=== PATIENT | female | born 1945 | race Caucasian/White ===

== ENCOUNTER 2022-08-09 10:21 | Outpatient (CLI) | payer OTHER, SELFPAY ==
[2022-08-09 17:35] LABS: Basophils Absolute Auto 0.1 K/mm3 (0.0-0.1); Basophils Percent Auto 1.1 % (0.2-1.2); Eosinophils Absolute Auto 0.3 K/mm3 (0-0.3); Eosinophils Percent Auto 5.5 % (0-4.4); Hematocrit 39.4 % (37.0-47.0); Hemoglobin 13.5 g/dL (12.0-15.0); Immature Granulocyte Absolute 0.02 K/mm3 (0.00-0.031); Immature Granulocyte Percent A 0.3 % (0-0.5); Lymphocytes Absolute Auto 1.32 K/mm3 (0.9-3.2); Lymphocytes Percent Auto 21.4 % (18.3-44.2); Mean Corpuscular HGB Conc 34.3 g/dl (32-36); Mean Corpuscular Volume 81.7 fl (80-100); Mean Platelet Volume 10.1 fl (7.4-10.4); Monocytes Absolute Auto 0.5 K/mm3 (0.1-0.6); Monocytes Percent Auto 7.3 % (2.6-8.5); Neutrophils Percent Auto 64.4 % (45.5-73.1); Platelet Count Result 123 k/mm3 (150-375); Red Blood Count 4.82 M/mm3 (4.2-5.4); Red Cell Distribution Width 14.6 % (11.5-14.5); White Blood Count 6.2 K/mm3 (4.5-10.0)
[2022-08-09 18:55] LABS: Alanine Aminotransferase 19 U/L (6-35); Albumin Level 4.4 g/dL (3.5-5.1); Alkaline Phosphatase 142 U/L (38-126); Anion Gap 8 mmol/L (8-16); Aspartate Amino Transferase 25 U/L (14-36); Bilirubin,Total 0.9 mg/dL (0.2-1.3); Blood Urea Nitrogen 21 mg/dL (7-17); Calcium 9.1 mg/dL (8.4-10.2); Carbon Dioxide 25 mmol/L (22-30); Chloride 109 mmol/L (98-107); Cholesterol 199 mg/dL (0-200); Estimated Glomerular Filt Rate 37; Glucose 85 mg/dL (65-110); HDL Direct 41 mg/dL; Potassium 4.6 mmol/L (3.4-5.0); Sodium 142 mmol/L (137-145); Triglycerides 196 mg/dL (<150)
[2022-08-09 19:08] LABS: LDL Cholesterol Direct 99 mg/dL
[2022-08-09 21:23] LABS: Hemoglobin A1C 5.6 % (<5.7)
== END 2022-08-09 10:22 | disposition home or self-care (01) ==
LOC: ANHGOSHLAB 10:23
PROVIDERS: PCP Family Medicine; Visit Provider Family Medicine
DX: E78.49 Other hyperlipidemia (principal); G58.9 Mononeuropathy, unspecified
CPT/HCPCS: 36415; 80053; 80061; 82607; 83036; 84443; 85025

== ENCOUNTER 2023-01-25 13:10 | Outpatient (CLI) | payer OTHER, SELFPAY ==
[2023-01-25 18:43] LABS: Anion Gap 11 mmol/L (8-16); Blood Urea Nitrogen 28 mg/dL (7-17); Carbon Dioxide 25 mmol/L (22-30); Chloride 104 mmol/L (98-107); Estimated Glomerular Filt Rate 29; Glucose 79 mg/dL (65-110); Potassium 4.9 mmol/L (3.4-5.0); Sodium 140 mmol/L (137-145)
== END 2023-01-25 13:11 | disposition home or self-care (01) ==
LOC: ANHGOSHLAB 13:11
PROVIDERS: PCP Family Medicine; Visit Provider Nurse Practitioner Family
DX: N18.30 Chronic kidney disease, stage 3 unspecified (principal)
CPT/HCPCS: 36415; 80048

== ENCOUNTER 2023-02-02 14:44 | Outpatient (CLI) | payer OTHER, SELFPAY ==
--- NOTE | ~2023-02-02 | US_ITS ---
EXAMINATION: US renal BI DATE: 02/02/2023 15:23 INDICATION: Stage III chronic kidney disease TECHNIQUE: Multiple ultrasound grayscale images of the kidneys were obtained. COMPARISON: None. FINDINGS: The right kidney measures 8.2 x 3.0 x 2.5 cm. The left kidney measures 10.2 x 3.7 x 3.1 cm. The kidne ys demonstrate normal echogenicity. There is increased echogenicity of the liver with poor acoustic p enetration consistent with diffuse hepatic steatosis. There is no hydronephrosis in either kidney. N o stones identified. The bladder is partially decompressed which limits evaluation. Instantly noted i s thickening hyperechoic endometrial complex measures approximately 12 mm . IMPRESSION: 1. Normal kidneys without hydronephrosis. 2. Diffuse hepatic steatosis. 3. Incidentally noted is thickened appearing endometrial complex measuring 12 mm . Correlate for abno rmal uterine bleeding would consider either dedicated pelvic ultrasound or hysteroscopy for further e valuation. Reviewed, dictated and finalized at location B. IMPRESSION: 1. Normal kidneys without hydronephrosis. 2. Diffuse hepatic steatosis. 3. Incidentally noted is thickened appearing endometrial complex measuring 12 m m . Correlate for abnormal uterine bleeding would consider either dedicated pel bang ultrasound or hysteroscopy for further evaluation.
== END 2023-02-02 14:45 | disposition home or self-care (01) ==
PROVIDERS: PCP Family Medicine; Visit Provider Family Medicine
DX: N18.30 Chronic kidney disease, stage 3 unspecified (principal); K76.0 Fatty (change of) liver, not elsewhere classified
CPT/HCPCS: 76775

== ENCOUNTER 2023-02-07 14:57 | Outpatient (CLI) | payer OTHER, SELFPAY ==
--- NOTE | ~2023-02-07 | XR_ITS ---
EXAMINATION: XR lumbar spine min 4V DATE: 02/07/2023 15:13 INDICATION: Low back pain TECHNIQUE: Anteroposterior, lateral, and bilateral oblique views of the lumbar spine, and cone-down l ateral view of the lumbosacral junction were obtained. COMPARISON: None. FINDINGS: There is severe loss of intervertebral disc space height at L3-4, L4-5, and L5-S1. There ar e 8 mm of anterolisthesis of L4 on L5. There is an age-indeterminate superior endplate compression fr acture of L2 with approximately 25% loss of vertebral body height. There is severe facet joint osteoa rthritis of the lower lumbar spine. Calcified atherosclerosis is noted. IMPRESSION: 1. Age-indeterminate L2 compression fracture. 2. Severe lumbar spondylosis. Reviewed, dictated and finalized at location B.
== END 2023-02-07 14:58 ==
PROVIDERS: PCP Family Medicine; Visit Provider Family Medicine
DX: M47.896 Other spondylosis, lumbar region (principal); S32.020A Wedge compression fracture of second lumbar vertebra, initial encounter for closed fracture; X58.XXXA Exposure to other specified factors, initial encounter
CPT/HCPCS: 72110

== ENCOUNTER 2023-03-08 15:11 | Outpatient (CLI) | payer OTHER, SELFPAY ==
[2023-03-08 19:02] LABS: Anion Gap 9 mmol/L (8-16); Blood Urea Nitrogen 23 mg/dL (7-17); Calcium 9.2 mg/dL (8.4-10.2); Carbon Dioxide 26 mmol/L (22-30); Chloride 105 mmol/L (98-107); Estimated Glomerular Filt Rate 31; Glucose 111 mg/dL (65-110); Potassium 4.3 mmol/L (3.4-5.0); Sodium 140 mmol/L (137-145)
== END 2023-03-08 15:12 | disposition home or self-care (01) ==
LOC: ANHGOSHLAB 15:13
PROVIDERS: PCP Family Medicine; Visit Provider Family Medicine
DX: N18.30 Chronic kidney disease, stage 3 unspecified (principal)
CPT/HCPCS: 36415; 80048

== ENCOUNTER 2023-06-07 14:21 | Outpatient (CLI) | payer OTHER, SELFPAY ==
[2023-06-07 19:59] LABS: Alanine Aminotransferase 23 U/L (6-35); Albumin Level 4.4 g/dL (3.5-5.1); Alkaline Phosphatase 133 U/L (38-126); Anion Gap 9 mmol/L (8-16); Aspartate Amino Transferase 25 U/L (14-36); Blood Urea Nitrogen 19 mg/dL (7-17); Carbon Dioxide 24 mmol/L (22-30); Chloride 106 mmol/L (98-107); Cholesterol 189 mg/dL (0-200); Estimated Glomerular Filt Rate 31; Glucose 98 mg/dL (65-110); HDL Direct 45 mg/dL; Potassium 3.9 mmol/L (3.4-5.0); Sodium 139 mmol/L (137-145); Triglycerides 208 mg/dL (<150)
[2023-06-07 20:18] LABS: LDL Cholesterol Direct 103 mg/dL
[2023-06-07 20:42] LABS: Basophils Absolute Auto 0.1 K/mm3 (0.0-0.1); Basophils Percent Auto 0.7 % (0.2-1.2); Eosinophils Absolute Auto 0.3 K/mm3 (0-0.3); Eosinophils Percent Auto 3.9 % (0-4.4); Hematocrit 38.8 % (37.0-47.0); Hemoglobin 13.1 g/dL (12.0-15.0); Immature Granulocyte Absolute 0.02 K/mm3 (0.00-0.031); Immature Granulocyte Percent A 0.2 % (0-0.5); Lymphocytes Absolute Auto 1.59 K/mm3 (0.9-3.2); Lymphocytes Percent Auto 19.2 % (18.3-44.2); Mean Corpuscular HGB Conc 33.8 g/dl (32-36); Mean Corpuscular Hemoglobin 28.1 pg (26-34); Mean Corpuscular Volume 83.3 fl (80-100); Mean Platelet Volume 10.4 fl (7.4-10.4); Monocytes Absolute Auto 0.6 K/mm3 (0.1-0.6); Monocytes Percent Auto 7.5 % (2.6-8.5); Neutrophils Absolute Auto 5.7 K/mm3 (1.3-6.7); Neutrophils Percent Auto 68.5 % (45.5-73.1); Platelet Count Result 185 k/mm3 (150-375); Red Blood Count 4.66 M/mm3 (4.2-5.4); Red Cell Distribution Width 13.7 % (11.5-14.5); White Blood Count 8.3 K/mm3 (4.5-10.0)
[2023-06-07 21:05] LABS: Hepatitis C Virus Antibody Negative (Negative)
== END 2023-06-07 14:22 | disposition home or self-care (01) ==
PROVIDERS: PCP Family Medicine; Visit Provider Nurse Practitioner Family
DX: E78.2 Mixed hyperlipidemia (principal); I12.9 Hypertensive chronic kidney disease with stage 1 through stage 4 chronic kidney disease, or unspecified chronic kidney disease; N18.30 Chronic kidney disease, stage 3 unspecified; G58.9 Mononeuropathy, unspecified; R73.01 Impaired fasting glucose
CPT/HCPCS: 36415; 80053; 80061; 84443; 85025; 86803

== ENCOUNTER 2023-10-05 13:59 | Outpatient (CLI) | payer OTHER, SELFPAY ==
[2023-10-05 21:03] LABS: Anion Gap 8 mmol/L (8-16); Blood Urea Nitrogen 18 mg/dL (7-17); Carbon Dioxide 24 mmol/L (22-30); Chloride 109 mmol/L (98-107); Estimated Glomerular Filt Rate 40; Glucose 117 mg/dL (65-110); Sodium 141 mmol/L (137-145)
[2023-10-05 21:07] LABS: Potassium 3.9 mmol/L (3.4-5.0)
[2023-10-05 21:20] LABS: Hemoglobin A1C 5.1 % (<5.7)
== END 2023-10-05 14:00 | disposition home or self-care (01) ==
LOC: ANHGOSHLAB 14:00
PROVIDERS: PCP Family Medicine; Visit Provider Nurse Practitioner Family
DX: R73.01 Impaired fasting glucose (principal); I10 Essential (primary) hypertension
CPT/HCPCS: 36415; 80048; 83036

== ENCOUNTER 2024-05-16 15:29 | Outpatient (CLI) | payer OTHER, SELFPAY ==
[2024-05-16 17:38] LABS: Alanine Aminotransferase 19 U/L (6-35); Albumin Level 4.5 g/dL (3.5-5.1); Alkaline Phosphatase 128 U/L (38-126); Anion Gap 10 mmol/L (4-12); Aspartate Amino Transferase 44 U/L (14-36); Bilirubin,Total 1.1 mg/dL (0.2-1.3); Blood Urea Nitrogen 24 mg/dL (7-17); Calcium 9.1 mg/dL (8.4-10.2); Carbon Dioxide 24 mmol/L (22-30); Chloride 106 mmol/L (98-107); Estimated Glomerular Filt Rate 34; Glucose 109 mg/dL (65-110); Sodium 140 mmol/L (137-145)
== END 2024-05-16 15:30 | disposition home or self-care (01) ==
LOC: ANHGOSHLAB 15:30
PROVIDERS: PCP Family Medicine; Visit Provider Nurse Practitioner Family
DX: I12.9 Hypertensive chronic kidney disease with stage 1 through stage 4 chronic kidney disease, or unspecified chronic kidney disease (principal); N18.30 Chronic kidney disease, stage 3 unspecified; R30.0 Dysuria
CPT/HCPCS: 36415; 80053; 84443; 87086

== ENCOUNTER 2024-05-17 13:40 | Outpatient (CLI) | payer OTHER, SELFPAY ==
[2024-05-17 18:56] LABS: Basophils Absolute Auto 0.1 K/mm3 (0.0-0.1); Basophils Percent Auto 1.1 % (0.2-1.2); Eosinophils Absolute Auto 0.4 K/mm3 (0-0.3); Eosinophils Percent Auto 4.9 % (0-4.4); Hematocrit 38.2 % (37.0-47.0); Immature Granulocyte Absolute 0.02 K/mm3 (0.00-0.031); Immature Granulocyte Percent A 0.3 % (0-0.5); Lymphocytes Absolute Auto 1.95 K/mm3 (0.9-3.2); Mean Corpuscular Hemoglobin 27.9 pg (26-34); Mean Platelet Volume 10.6 fl (7.4-10.4); Monocytes Absolute Auto 0.6 K/mm3 (0.1-0.6); Monocytes Percent Auto 7.6 % (2.6-8.5); Neutrophils Absolute Auto 4.5 K/mm3 (1.3-6.7); Neutrophils Percent Auto 60.1 % (45.5-73.1); Platelet Count Result 123 k/mm3 (150-375); Red Blood Count 4.66 M/mm3 (4.2-5.4); Red Cell Distribution Width 13.7 % (11.5-14.5); White Blood Count 7.5 K/mm3 (4.5-10.0)
== END 2024-05-17 13:41 | disposition home or self-care (01) ==
LOC: ANHGOSHLAB 13:42
PROVIDERS: PCP Family Medicine; Visit Provider Nurse Practitioner Family
DX: I12.9 Hypertensive chronic kidney disease with stage 1 through stage 4 chronic kidney disease, or unspecified chronic kidney disease (principal); N18.30 Chronic kidney disease, stage 3 unspecified; M79.669 Pain in unspecified lower leg
CPT/HCPCS: 36415; 85025

== ENCOUNTER 2025-03-06 14:23 | Outpatient (CLI) | payer OTHER, SELFPAY ==
--- OUTSIDE RECORDS SUMMARY | 2025-03-06 14:31 | XMS_ITS | Clinical Summary ---
Author Organization [facility] Address [address] [place] [id number] Care Team Providers Care Appraisal Specialist Name Role Phone Nelson BrewerHarry RESENDIZ Primary Care Provider [phone] Allergies No known active allergies Active Problems Problem Noted Date Diagnosed Date Benign hypertension 12/15/2013 Overview (11/03/2016): BENIGN HYPERTENSION Generalized osteoarthritis 12/15/2013 Overview (11/05/2016): GENERAL OSTEOARTHROSIS Surgical History Surgery Date Site/Laterality Comments OTHER SURGICAL HISTORY eye surgery b/l Medical History Medical History Date Comments Neuropathy Hypertension Family History Medical History Relation Name Comments Cirrhosis Mother 2 Cirrhosis; Caus e of : Cirrhosis Relation Name Status Comments Mother 1 Mother 2 Social History Tobacco Use Types Packs/Day Years Used Date Smoking Tobacco: Never Assessed Alcohol Use Standard Drinks/Week Comments No 0 (1 standard drink = 0.6 oz pur e alcohol) Comments Unknown Sex and Gender Information Value Date Recorded Sex Assigned at Not on file 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 Gender Identity Not on file Sexual Orientation Not on file Obstetrics History Last Filed Vital Signs Vital Sign Reading Time Taken Comments Blood Pressure 159/89 02/28/2022 1:40 AM CDT Pulse 60 02/28/2022 1:40 AM CDT Temperature 36.8 C (98.2 F) 02/27/2022 5:22 PM CDT Respiratory Rate 18 02/27/2022 5:22 PM CDT Oxygen Saturation 98% 02/28/2022 1:40 AM CDT Inhaled Oxygen Concentration - - Weight 87.5 kg (193 lb) 02/27/2022 5:22 PM CDT Height 170.2 cm (5' 7) 02/27/2022 5:22 PM CDT Body Mass Index 30.23 02/27/2022 5:22 PM CDT Plan of Treatment Not on file Insurance HEALTHCARE MEDICARE HEALTHCARE Care Teams Appraisal Specialist Relationship Specialty Start Date End Date Nelson Brewre, [address] [facility] [address] [place] [address] PCP - General 03/08/22
[2025-03-06 18:19] LABS: Alanine Aminotransferase 17 U/L (6-35); Albumin Level 4.1 g/dL (3.5-5.1); Alkaline Phosphatase 148 U/L (38-126); Anion Gap 8 mmol/L (4-12); Aspartate Amino Transferase 27 U/L (14-36); Bilirubin,Total 0.8 mg/dL (0.2-1.3); Blood Urea Nitrogen 26 mg/dL (7-17); Calcium 9.1 mg/dL (8.4-10.2); Carbon Dioxide 23 mmol/L (22-30); Chloride 109 mmol/L (98-107); Estimated Glomerular Filt Rate 35; Glucose 98 mg/dL (65-110); Potassium 4.8 mmol/L (3.4-5.0); Sodium 140 mmol/L (137-145); Total Protein 7.4 g/dL (6.3-8.2)
[2025-03-06 18:51] LABS: Thyroid Stimulating Hormone 1.230 uIU/mL (0.465-4.680)
[2025-03-06 19:11] LABS: Hemoglobin A1C 5.8 % (<5.7)
== END 2025-03-06 14:24 | disposition home or self-care (01) ==
LOC: ANHGOSHLAB 14:24
PROVIDERS: PCP Family Medicine; Visit Provider Nurse Practitioner Family
DX: I12.9 Hypertensive chronic kidney disease with stage 1 through stage 4 chronic kidney disease, or unspecified chronic kidney disease (principal); N18.30 Chronic kidney disease, stage 3 unspecified; R73.01 Impaired fasting glucose
CPT/HCPCS: 36415; 80053; 83036; 84443

== ENCOUNTER 2025-05-15 18:46 | Inpatient (IN) | payer OTHER, SELFPAY ==
--- OUTSIDE RECORDS SUMMARY | 2009-09-22 10:00 | XMS_ITS | Continuity of Care Document ---
Author Organization [facility] Address [address] [place] [address] [place] [address] Phone Care Team Providers Care Director Occupational Name Role Phone Bao [place] Unavailable Unavailable Procedures Procedure Date Office/outpatient Visit, Est Eye Exam & Treatment Office/outpatient Visit, Est Eye Exam & Treatment Refraction Advance Directives Directive Yes / No Effective Date File Name No Information Encounters Encounter Description Practice Location Reason(s) For Visit Diagnoses Date Provider Providers Copied on Encounter Office/outpat ient Visit, Est [facility], [address] [place] [address] [address], [place], [place], [id number], tel:[phone] [facility] No Information 2-201 0 Lizett Gore. [address] , [address], [place], [place], [facility] [place], . tel:[phone] [facility], [address] [place] [address] [address], [place], [place], [id number], [place] tel:[phone] [facility] No Information 2-200 9 Lizett Gore. [address] , [address], [place], [place], [facility] [place], [place]. tel:[phone] Office/outpat ient Visit, [facility], [address] [place] [address] [address], [place], [place], [id number], tel:[phone] [facility] No Information Sep-0 3200 8 Lizett Gore. [address] , [address], [place], [address], [place]. tel:[phone] [facility], [address], [place], [place], [id number], [place] tel:[phone] [facility] No Information 200 7 Lizett Gore. [address] , [address], [place], [address], [place]. tel:[phone] Family History Family Member Type Diagnosis Age At Onset No Information Payers Payer name Insurance type Covered libertarian ID Authoriza tion(s) No Information Social History Type Description Quantity Date Captured Comments Sex Female Smoking Status No Information Chief Complaint And Reason For Visit No Information Reason For Referral Reason For Referral No Information History Of Present Illness Encounter Date Complaint History Of Prese nt Illness No Information Functional Status Date Functional Assessmen t No Information Instructions Date Instruction Additional Infor mation No Information Assessments Type Assessment Date No Information Patient Care Teams Name Effective Dates (start - stop) Status Members No Information
--- OUTSIDE RECORDS SUMMARY | 2023-08-14 06:41 | XMS_ITS | Continuity of Care Document ---
Author Organization [facility] Address [address] [place] [address] Phone Care Team Providers Care Cell Manager Name Role Phone Daniella RESENDIZ, Nelson Unavailable Unavailable Allergies, Adverse Reactions, Alerts Substance Reaction Status Criticality Sulfa (Sulfonamide Antibiotics) Nausea Active No Information Medications Medication Instructions Dosage Effective Dates (start - stop) Status Comments ATORVASTATIN 20 MG TABLET TAKE 1 TABLET BY MOUTH EVERY DAY - Active OMEPRAZOLE DR 20 MG CAPSULE TAKE 1 CAPSULE BY ORAL ROUTE EVERY DAY 30 MINUTES TO 1 HOUR BEFORE A MEAL IN THE MORNING - Active AMLODIPINE BESYLATE 5 MG TAB TAKE 1 TABLET BY MOUTH EVERY DAY - Active ATENOLOL 100 MG TABLET TAKE 1 TABLET BY MOUTH EVERY DAY - Active alprazolam 0.5 mg tablet take 1 tablet by oral route at bedtime as needed for insomnia - Active GABAPENTIN 400 MG CAPSULE TAKE 2 CAPSULES BY MOUTH 3 TIMES A DAY - Active loratadine 10 mg tablet TAKE 1 TABLET BY MOUTH EVERY DAY NEEDED FOR ALLERGIES - Active Pepcid Complete 10 mg-800 mg-165 mg chewable tablet take 1 tablet by mouth at bedtime - Active Glucosamine-Chondroiti n Complex capsule take two capsules by oral route once daily - Active multivitamin capsule take one capsule by oral route once daily - Active Procedures Procedure Date TELEPHONE E&M SERVICE BY A PHYSICIAN;5-1 0 MINUTES OF MEDICAL DISCUSSION CBC, INC PLATELETS AND DIFFERENTIAL COMPREHEN METABOLIC PANEL CMP LIPID PANEL ROUTINE VENIPUNCTURE Pt inelig neg scrn depres FALL RISK ASSESSMENT DOC'D PRES/ABSN URINE INCON ASSESS URINALYSIS, DIPSTICK (UA) - Office Lab J LDL-CHOLESTEROL, DIRECT OFFICE [id number] BODY MASS INDEX DOCD SYST BP GE 130 - 139MM HG DIAST BP 80-89 MM HG Pt inelig neg scrn depres URINALYSIS, DIPSTICK (UA) - Office Lab M OFFICE [id number] BODY MASS INDEX DOCD SYST BP GE 130 - 139MM HG DIAST BP 80-89 MM HG FALL RISK ASSESSMENT DOC'D PRES/ABSN URINE INCON ASSESS Pt inelig neg scrn depres CBC, INC PLATELETS AND DIFFERENTIAL COMPREHEN METABOLIC PANEL CMP LIPID PANEL ROUTINE VENIPUNCTURE OFFICE [id number] BODY MASS INDEX DOCD SYST BP LT 130 MM HG DIAST BP 80-89 MM HG FALL RISK ASSESSMENT DOC'D PRES/ABSN URINE INCON ASSESS Pt inelig neg scrn depres OFFICE [id number] BODY MASS INDEX DOCD SYST BP GE 130 - 139MM HG DIAST BP 80-89 MM HG SCREENING MAMMOGRAM (CAD) DXA BONE DENSITY, AXIAL Additional supplies, materials, & Clinic al Staff Time During A PHE FALL RISK ASSESSMENT DOC'D PRES/ABSN URINE INCON ASSESS Pt inelig neg scrn depres CBC, INC PLATELETS, NO DIFFERENTIAL COMPREHEN METABOLIC PANEL CMP 0 LIPID PANEL ROUTINE VENIPUNCTURE OFFICE [id number] BODY MASS INDEX DOCD SYST BP LT 130 MM HG DIAST BP < 80 MM HG X-RAY EXAM OF TAILBONE Pt inelig neg scrn depres URINALYSIS, DIPSTICK (UA) - Office Lab F OFFICE [id number] BODY MASS INDEX DOCD SYST BP >= 140 MM HG6 IT DIAST BP 80-89 MM HG Fecal Occult Blood Mdcr Kept Appointment No Charge Encounter Aug FALL PLAN OF CARE DOC'D URINE INCON PLAN DOC'D PRES/ABSN URINE INCON ASSESS Pt inelig neg scrn depres OFFICE [id number] BODY MASS INDEX DOCD SYST BP LT 130 MM HG DIAST BP 80-89 MM HG Advance Directives Directive Yes / No Effective Date File Name No Information Encounters Encounter Description Practice Location Reason(s) For Visit Diagnoses Date Provider Providers Copied on Encounter [facility], [address], [place], [place], [address] , [place] tel: [phone] [facility] No Information 4 Daniella Damon. [address], [place], [place], [address], [place]. tel:[phone] [facility], [address], [place], [place], [address] , [place] tel: [phone] [facility] No Information 3 Daniella Damon. [address], [place], [place], [address], [place]. tel:[phone] [facility], [address], [place], [place], [address] , [place] tel: [phone] [facility] No Information 3 Biankaeva Damon. [address], [place], [place], [address], [place]. tel:[phone] [facility], [address], [place], [place], [address] , tel: [phone] [facility] No Information 2 Guydaisy Nelson. [address], [place], [place], [address], [place]. tel:[phone] [facility], [address], [place], [place], [address] , tel: [phone] [facility] No Information 2 Daniella Nelson. [address], [place], [place], [address], [place]. tel:[phone] TELEPHONE E&M SERVICE BY A PHYSICIAN;5- 10 MINUTES OF MEDICAL DISCUSSION [facility], [address], [place], [place], [address] , [place] tel: [phone] [facility] Encounter for follow-up examination after completed treatment for conditions other than malignant neoplasm 2 Daniella Damon. [address], [place], [place], [address], [place]. tel:[phone] Referring Provider: Nelson Brewer, [address] [facility] [address], [place], [address] . tel:[phone] OFFICE JYVYR-[id number]-LK TAILED [facility], [address], [place], [place], [address] , tel: [phone] [facility] chronic medical problem follow-up (chief complaint) Hyperlipidemia, unspecified hyperlipidemia typeHypertensive chronic kidney disease, unspecified CKD stageStage 3 chronic kidney disease, unspecified whether stage 3a or 3b CKDBody mass index [BMI] 30.0-30.9, adultHematuria, unspecified typeSenile purpuraUrinary tract infection with hematuria, site unspecifiedGastro-e sophageal reflux disease without esophagitisOther polyneuropathyGener alized anxiety disorderPsychophysi ological insomniaAtheroscler osis of arteries of extremities 2 Daniella Damon. [address], [place], [place], [address], [place]. tel:[phone] Referring Provider: Nelson Brewer, [address], [place], [address] . tel:[phone] [facility], [address], [place], [place], [address] , [place] tel: [phone] [facility] No Information 2 Daniella Damon. [address], [place], [place], [address], [place]. tel:[phone] OFFICE [id number] PANDED [facility], [address], [place], [place], [address] , [place] tel: [phone] [facility] Recurrent UTI symptoms (chief complaint) Body mass index [BMI] 29.0-29.9, adultUrinary tract infection with hematuria, site unspecifiedHematuri a, unspecified 2 Amandatimoteo Green. [address], [place], [place], [address], [place]. tel:[phone] Referring Provider: Nelson Brewer, [address], [place], [address] . tel:[phone] [facility], [address], [place], [place], [address] , [place] tel: [phone] [facility] No Information 1 Daniella Damon. [address], [place], [place], [address], [place]. tel:[phone] OFFICE [id number]-ZUM-NM TAILED [facility], [address], [place], [place], [address] , tel: [phone] [facility] Pt returns for follow-up on chronic medical problems (chief complaint) Body mass index (BMI) 27.0-27.9, adultHyperlipidemia , unspecified hyperlipidemia typeGastro-esophage al reflux disease without esophagitisSenile purpuraHypertensive kidney disease with stage 3 chronic kidney diseaseChronic kidney disease, stage 3 unspecified 1 Daniella Damon. [address], [place], [place], [address], [place]. tel:[phone] Referring Provider: Nelson Brewer, [address], [place], [address] . tel:[phone] [facility], [address], [place], [place], [address] , tel: [phone] [facility] Encounter for examination of eyes and vision with abnormal findings 1 Daniella Damon. [address], [place], [place], [address], [place]. tel:[phone] [facility], [address], [place], [place], [address] , tel: [phone] [facility] No Information 1 Daniella Damon. [address], [place], [place], [address], [place]. tel:[phone] OFFICE [id number]-KFL-UZ TAILED [facility], [address], [place], [place], [address] , tel: [phone] [facility] Patient returns for follow-up on chronic medical proble (chief complaint) Body mass index (BMI) 29.0-29.9, adultHypertensive kidney disease with stage 3 chronic kidney diseaseHyperlipidem ia, unspecified hyperlipidemia typeChronic kidney disease, stage 3 unspecifiedSenile purpuraGastro-esoph ageal reflux disease without esophagitis 0 1 Daniella Damon. [address], [place], [place], [address], [place]. tel:[phone] Referring Provider: Nelson Brewer, [address] [facility] [address], [place], [address] . tel:[phone] [facility], [address], [place], [place], [address] , [place] tel: [phone] [facility] Abnormal screening mammogram 1 Daniella Damon. [address], [place], [place], [address], [place]. tel:[phone] [facility], [address], [place], [place], [address] , [place] tel: [phone] [facility] No Information 0 Lowell Juliano. [address] , [place], [place], [address], [place]. tel:[phone] Referring Provider: Norma Patel, [address] [facility] [address], [place], [address] . tel:[phone] [facility], [address], [place], [place], [address] , [place] tel: [phone] [facility] No Information 0 Daniella Damon. [address], [facility] [address], [place], [place], [address], [place]. tel:[phone] OFFICE [id number]-[id number]-CU TAILED [facility], [address], [place], [place], [address] , tel: [phone] [facility] Chronic Conditions (chief complaint) Body mass index (BMI) 26.0-26.9, adultEncounter for screening for osteoporosisEncntr screen mammogram for malignant neoplasm of breastHyperlipidemi a, unspecifiedThromboc ytopeniaOther polyneuropathyHyper tensive kidney disease with stage 3 chronic kidney diseaseChronic kidney disease, stage 3 (moderate)Osteoarth ritis of multiple joints, unspecified osteoarthritis type 0 Amanda Green. [address], [address], [place], [place], [address], [place]. tel:[phone] Referring Provider: Nelson Brewer, [address], [place], [address] . tel:[phone] [facility], [address], [place], [place], [address] , [place] tel: [phone] [facility] Other secondary cataract, right eyeOther secondary cataract, left eye 0 Daniella Nelson. [address], [place], [place], [address], [place]. tel:[phone] [facility], [address], [place], [place], [address] , [place] tel: [phone] [facility] Encounter for examination of eyes and vision with abnormal findings 0 Daniella Nelson. [address], [place], [place], [address], [place]. tel:[phone] [facility], [address], [place], [place], [address] , [place] tel: [phone] [facility] No Information 0 Lowell Henao. [address], [place], [place], [address], [place]. tel:[phone] Referring Provider: Norma Patel, [address], [place], [address] . tel:[phone] OFFICE QSUCR-KAK-ML PANDED [facility], [address], [place], [place], [address] , [place] tel: [phone] [facility] lower abdominal pain/very low back pain (chief complaint) Fall, initial encounterButtock painBody mass index (BMI) 24.0-24.9, adultUrinary tract infection with hematuria, site unspecifiedHematuri a, unspecified 0 Amanda Green. [address], [address], [place], [place], [address], [place]. tel:[phone] Referring Provider: Nelson Brewer, [address], [place], [address] . tel:[phone] [facility], [address], [place], [place], [address] , [place] tel: [phone] [facility] Colon cancer screening 0 Amanda Green. [address], [facility] [address], [place], [place], [address], [place]. tel:[phone] OFFICE [id number]-ZZ MP-MED [facility], [address], [place], [place], [address] , [place] tel: [phone] [facility] Establish (chief complaint) Body mass index (BMI) 25.0-25.9, adultHypertensive kidney disease with stage 3 chronic kidney diseaseChronic kidney disease, stage 3 (moderate)Hyperlipi demia, unspecified hyperlipidemia typeThrombocytopeni aOther polyneuropathyOsteo arthritis of multiple joints, unspecified osteoarthritis typeBreast cancer screeningColon cancer screeningEncounter for screening for osteoporosis 0 Daniella Damon. [address], [facility] [address], [place], [place], [address], [place]. tel:[phone] Referring Provider: Nelson Brewer, [address] [facility] [address], [place], [address] . tel:[phone] Family History Family Member Type Diagnosis Age At Onset Mother Problem (finding) Diabetes mellitus Sister Problem (finding) Alive and well Sister Problem (finding) Obesity Father Problem (finding) Arthritis Immunizations Vaccine Date Status Comments influenza, high-dose, quadrivalent admini stered Source: Other Provider Pneumococcal polysaccharide PPV23 adminis tered Source: Other Provider Fluzone-Flulaval Quad, prese rvative free, split virus, 0.5mL dosage administered Source: Other Provider Pneumococcal conjugate PCV 13 administere d Source: Other Provider Hep A (adult) administered Source: Other Provider Payers Payer name Insurance type Covered republican ID Yvesa bruno(s) [id number] Social History Type Description Quantity Date Captured Comments Sex Female Smoking Status No Information Sexual Orientation Straight or heterosexual Gender Identity Female Chief Complaint And Reason For Visit No Information Reason For Referral Reason For Referral No Information Plan Of Treatment Date Type Action Status Goal Dietary management education , guidance, and counseling completed Goal Dietary management education , guidance, and counseling completed Goal Dietary management education , guidance, and counseling completed Goal Dietary management education , guidance, and counseling completed Goal Dietary management education , guidance, and counseling completed Goal Dietary management education , guidance, and counseling completed Referral Ordered: Stanley Hancock MD -Ophthalmology (related to Encounter for examination of eyes and vision with abnormal findings) ordered Referral Referred To: [address] [place] [address], [id number] Ordered: Diagnostic mammography of left breast Left ordered Referral Referred To: [address] [place] [address], [id number] Ordered: Limited ultrasound of left breast ordered Referral Ordered: Stanley Hancock MD -Ophthalmology (related to Other secondary cataract, right eye) ordered Referral Ordered: Stanley Hancock MD -Ophthalmology (related to Encounter for examination of eyes and vision with abnormal findings) ordered Referral Referred To: Stanley Hancock MD [address] [place] [address]
[address] [place] [address], [phone] Ordered: Referrals: Ophthalmology. Stanley Hancock MD. Evaluation/diagnostic/treatment - Level 3 Appointment date/timeframe: 01/15/2020 ordered Referral Referred To: [address] [place] [address], [id number] Ordered: X-ray of coccyx, two views ordered Referral Referred To: [address] [place] [address], [id number] Ordered: SCREENING MAMMOGRAM (CAD) Bilateral breast ordered Referral Referred To: [address] [place] [address], [id number] Ordered: DEXA of spine and hip ordered History Of Present Illness Encounter Date Complaint History Of Prese nt Illness chronic medical problem follow-u p the patient returns for follow-up on her chronic medical problems. She has hypertensive chronic kidney disease stage III. She is taking amlodipine and atenolol. She denies any chest pain her or shortness of breath with exertion. She doesn't have any swelling or orthostasis or fatigue from her medicines. Her renal function has been stable.She has high cholesterol. She is taking atorvastatin. She denies any myalgias. She is on a low-cholesterol diet. Her high cholesterol has led to end-organ damage in the form of atherosclerosis of the extremities noted on x-rays of the knee on February 28, 2022. She denies any claudication symptoms. She doesn't have any wounds of the lower extremities.She has Gerd. She is taking omeprazole and Pepcid. She denies any melena or hematochezia. She is not feeling heartburn or reflux or using antacids twice a week or more. She is practicing reflux precautions.She has neuropathy of the lower extremities, is taking gabapentin, which is helping. She denies any wounds of the lower extremities.She has generalized anxiety disorder which causes some insomnia at times. She would like something to help her get to sleep without having to take something all of the time.She has urinary symptoms of a slow urinary stream and orange urine since seen Norma on December 04, 2021. She was treated for urinary tract infection, but her symptoms really did not resolve. She says that her energy level is down and she has occasional abdominal pain which comes and goes. She is not having vomiting or fevers. She denies any frances blood in the urine.patient does complain of bruising on her arms that seems to come and go. She denies any excessive or unexpected bleeding otherwise, denies any apostaxis, gross hematuria, melena or hematochezia. Recurrent UTI symptoms She prese nts today with complaints of urinary frequency, urgency, and dysuria that she has been dealing with for almost 2 months. She has seen a couple of providers in [place] but the symptoms continues to recours. She denies any hematuria or low back pain. She has been bactrim and cipro with no improvement. She does not know if her samples were sent for culture. Pt returns for follo w-up on chronic medical problems Patient returns for follow-up on her chronic medical problems. She has Gerd. She is taking omeprazole and Pepcid. She denies any significant heartburn symptoms as long as she remembers to take her medicine. She denies any melena or hematochezia. She is on reflux precautions.She has high cholesterol. She is taking atorvastatin 20 mg a day. She is on a low-cholesterol diet. She denies any myalgias.She has high blood pressure, is taking amlodipine 5 mg day and atenolol 100 mg per day. She denies any chest pain her or shortness of breath. She doesn't have any lower extremity edema or fatigue from her medicines. Her hypertension is complicated by chronic kidney disease stage III. Renal function has been stable.She is due for colon cancer screening. She refuses colonoscopy. She wants to do a fit test, despite knowing that fit test can miss cancers, or delayed diagnosis, which could potentially lead to surgery, , amongst other outcomes. She has not had her Covid vaccination yet. Patient returns for follow-up on chronic medical proble The patient returns for follow-up on her chronic medical problems. She has hypertensive chronic kidney disease stage III. Her gfr has been stable. She is taking amlodipine 5 mg day and atenolol 100 mg a day for her blood pressure. She denies any edema or fatigue from her medicines. She doesn't have any chest pain, or or shortness of breath.She has high cholesterol. She is taking atorvastatin 20 mg a day. She denies any myalgias. She is on a low-cholesterol diet.She has heartburn symptoms after supper, usually while laying in bed. She takes Tums, and that seems to help. She denies any melena, hematochezia, or hematemesis. She does have a habit of eating late, in the hours prior to going to bed.She has a history of low platelets, although her most recent levels have been normal, she wonders whether the low platelets could be responsible for the bruising on her arms. She denies any excessive or unexpected bleeding. Chronic Conditions *See Chronic Conditions HPI lower abdominal pain /very low back pain She presents today with complaints of lower abdominal pain/pressure, very low back/buttock pain. She states that about 3 weeks ago she fell onto her bottom after missing a curb outside of a [employer]. She states she also hit the back of her head. She declined evaluation in the E/R. She states that her buttock and had been sore and was very bruised in the beginning by seemed to be getting better. However, about a week ago she noticed that she started to feel pain/pressure in her lower abdomen that seemed to radiate to her back and buttock area. She has been sitting on a heating pad but has not had much improvement. She denies other urinary or GI symptoms except to say to her urine stream seems slow. She denies dysuria, foul odor, urine frequency, hesitancy, incontinence. She denies fever body aches, or chills. Establish Patient comes in to establish care. She was previously cared for by Dr. Yo Yi. She has not had colon cancer screening. She does not want to colonoscopy, but agrees to a fit test. She has not had a mammogram or bone density examination. She has not been taking any calcium or vitamin D.She has hypertensive chronic kidney disease stage III. Her gfr was 29 on March 05, 2019 and 36 on April 05, 2019. She is taking amlodipine 5 mg a day and atenolol 100 mg per day. She denies any chest pain or shortness of breath with exertion. She denies edema or fatigue. She is trying to eat a healthy, low sodium diet. 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 She denies any myalgias. She is on a low-cholesterol diet. She needs to increase the fruits in her diet.She has peripheral neuropathy, in her upper extremities. She is taking gabapentin 800 mg by mouth three times daily, which seems to help. She is not noticing worsening weakness in the hands.Her previous DrHarry was also following her for thrombocytopenia. Her last Platelet Count was normal, although prior to that it was apparently low according to the notes. She is not being treated with any medicine for this, just being observed. She denies any excessive bleeding or unexpected bleeding.She has osteoarthritis. She is not using any medicine for this, Tylenol and Advil don't seem to do very much for her. The arthritis is in her ankles, knees, hips, and hands. She notices decreased range of motion, stiffness and pain.She sees Dr. Hancock from cardiology, it is unclear why she was seen the dye colorist formulator, she has not had history of myocardial infarction, arrhythmia, or heart failure. Functional Status Date Functional Assessmen t No Information Instructions Date Instruction Additional Infor norris Continue secondary p revention through excellent blood pressure and cholesterol control Related to Atherosclerosis of arteries of extremities Discussed elevated B AL, greater than 27, being a risk factor for further medical problems. Recommended weight loss through caloric restriction, exercises tolerated. Related to Body mass index [BMI] 30.0-30.9, adult treat for urinary tr act infection with Cipro 500 mg p.o. b.i.d. for seven days. Call if not improving. Related to Hematuria, unspecified type A marker of fragilit y, reassured. Check Platelet Count, call with any excessive or unexpected bleeding. Related to Senile purpura continue gabapentin, call with any worsening. Related to Other polyneuropathy alprazolam as noted above. Call if not improving. Related to Psychophysiological insomnia Cipro as noted above Related to Urinary tract infection with hematuria, site unspecified continue omeprazole and Pepcid, reflux precautions reinforced. Call with any worsening. Related to Gastro-esophageal reflux disease without esophagitis alprazolam 0.5 mg p. o. q.h.s. PRN. Advised not to use this more than once per day. Related to Generalized anxiety disorder Disease process as above. Related to Hemat uria, unspecified Send for CultureStar t Macrobid 100mg 1 tablet twice daily x 10 days. We will call with culture results and any medication changes. Please call if symptoms do not improve or worsen. Related to Urinary tract infection with hematuria, site unspecified Dietary management e ducation, guidance, and counseling Related to Body mass index (BMI) 29.0-29.9, adult Disease process Continue with excell ent blood pressure control in order to prevent worsening. Recheck renal function today with a CMP. Related to Chronic kidney disease, stage 3 unspecified Continue omeprazole and Pepcid. Call if experiencing heartburn or reflux symptoms more than twice per week. Reflux precautions reinforced. Related to Gastro-esophageal reflux disease without esophagitis A marker of fragilit y, reassured. Check Platelet Count, call with any excessive or unexpected bleeding. Related to Senile purpura FLP and LFTs. Contin ue low-cholesterol diet and atorvastatin 20 mg per day. Related to Hyperlipidemia, unspecified hyperlipidemia type Continue amlodipine, atenolol, excellent blood pressure control in order to prevent worsening of the chronic kidney disease. Related to Hypertensive kidney disease with stage 3 chronic kidney disease Dietary management e ducation, guidance, and counseling Related to Body mass index (BMI) 27.0-27.9, adult Disease process Trial of Prilosec 20 mg p.o. q.a.m. Pepcid complete, one to be taken every night. Call if not improving. If the heartburn symptoms improve, she can stop the Pepcid complete that she is taking at nighttime, after taking it for one month. Discussed reflux precautions in detail. Related to Gastro-esophageal reflux disease without esophagitis Check CBC to rule ou t thrombocytopenia as a cause for these, otherwise reassured, these are a marker of fragility. Related to Senile purpura Continue with excell ent blood pressure control in order to prevent worsening. Recheck CMP. Related to Chronic kidney disease, stage 3 unspecified Continue atorvastati n 20 mg per day, low-cholesterol diet. FLP and LFTs. Related to Hyperlipidemia, unspecified hyperlipidemia type Continue amlodipine 5 mg a day and atenolol 100 mg per day, activity as tolerated. Continue with excellent blood pressure control in order to prevent worsening of the chronic kidney disease. Related to Hypertensive kidney disease with stage 3 chronic kidney disease Disease process Dietary management e ducation, guidance, and counseling Related to Body mass index (BMI) 29.0-29.9, adult No changes or additi ons to current treatment plan.Continue gabapentin 400 mg two tablets three times daily. Related to Other polyneuropathy Obtain CBCShe will r eport excessive bleeding or bruising. Related to Thrombocytopenia No changes or additi ons to current treatment plan.Continue Tylenol/acetaminophen 500 mg one tablet as needed every 4 to 6 hours. Continue tramadol 50 mg one tablet every six hours as needed for severe pain Related to Osteoarthritis of multiple joints, unspecified osteoarthritis type Obtain CMP and lipid panelcontinue our atorvastatin 20 mg once daily- Educated on goal of LDL/Bad cholesterol to be less than 100- Educated on best dosing for statin medications is at bedtime. - Discussed risks of uncontrolled cholesterol including heart disease, peripheral vascular disease, and stroke. - Advise to continue to work on diet and lifestyle modifications including maintain a healthy body weight/BMI, a diet low in saturated and trans fats, frequent cardiovascular exercise 3-5 days a week for 30-40 min, and smoking avoidance. Related to Hyperlipidemia, unspecified Current medications reviewed and are appropriate for current level of kidney functioning. - Educated on the importance of controlling blood pressure, blood sugar, and cholesterol.- Advise to consult your healthcare provider before you take any [id number] medications that contain NSAID's these medications include: ibuprofen, naproxen, Advil, Aleve, and Motrin. Related to Chronic kidney disease, stage 3 (moderate) Obtain CBC and CMPco ntinue amlodipine 5 mg one tablet once dailycontinue atenolol 100 mg one tablet once daily -Advised blood pressure to be less than 130/80 - Discussed risks of persistent high blood pressure including: Heart disease, stroke, and kidney disease.- Advise to continue to work on lifestyle modifications including maintaining a healthy body weight/BMI, low salt diet, smoking avoidance, refrain from excessive alcohol ntake, stress reduction, and incorporate frequent cardiovascular exercise 3-5 days a week for 30-40 min. - Advise to obtain a blood pressure monitor for home use and check blood pressures periodically. Report persistent numbers above 140/90 to your healthcare provider. Related to Hypertensive kidney disease with stage 3 chronic kidney disease Disease process Dietary management e ducation, guidance, and counseling Related to Body mass index (BMI) 26.0-26.9, adult Obtain xray of elmer Soler call with results and any further recommendations. Related to Buttock pain As above Related to Fall, initial encounter As above Related to Hemat uria, unspecified Send for cultureStar t sulfamethizole-Trimethoprim 800-160mg 1 tablet twice daily x 7 daysAdvised to flush with fluids. Advised patient to call office if symptoms do not improve or worsen. Related to Urinary tract infection with hematuria, site unspecified Dietary management e ducation, guidance, and counseling Related to Body mass index (BMI) 24.0-24.9, adult Disease process Trial of tramadol 50 mg, two pills by mouth every 6 hours as needed for arthritis pain. Side effects discussed, call with any problems. Related to Osteoarthritis of multiple joints, unspecified osteoarthritis type Mammogram ordered Related to Leil[place] ast cancer screening DEXA ordered. Discus sed proper calcium and vitamin D intake. Increase cardiovascular exercise, weight bearing type. Related to Encounter for screening for osteoporosis Fit test ordered. Related to Col on cancer screening Continue excellent b lood pressure control. Recheck renal function. Related to Chronic kidney disease, stage 3 (moderate) Secondary to carpal tunnel syndrome, continue gabapentin 800 mg by mouth three times daily. Related to Other polyneuropathy Obtain old records, call with any unexpected or excessive bleeding. Related to Thrombocytopenia Recheck lipids and L FTs, continue low-cholesterol diet. Continue Lipitor 20 mg per day. Related to Hyperlipidemia, unspecified hyperlipidemia type Continue amlodipine 5 mg a day and atenolol 100 mg per day. Continue excellent blood pressure control in order to prevent worsening of the chronic kidney disease. Recheck renal function. Related to Hypertensive kidney disease with stage 3 chronic kidney disease Dietary management e ducation, guidance, and counseling Related to Body mass index (BMI) 25.0-25.9, adult Disease process Assessments Type Assessment Date No Information Patient Care Teams Name Effective Dates (start - stop) Status Members No Information
[2025-05-15] VITALS (40 sets, daily range): BP systolic 100–143; BP diastolic 66–108; PULSE 87–140; RESP 16–28; TEMP 36.6; O2SAT 82–98
--- NOTE | ~2025-05-15 | XR_ITS ---
Examination: XR chest 1V portable Clinical History: CHF/cardiomyopathy Comparison: 05/15/2025 Technique: Portable AP Findings: Cardiomegaly. Mildly increased interstitial markings. Small pleural effusions. No acute bony abnormality. IMPRESSION: 1. Mild interstitial edema with small pleural effusions. Reviewed, dictated and finalized at location R.
--- NOTE | ~2025-05-15 | XR_ITS ---
XR chest 1V portable INDICATION:dyspnea . REFERENCE: None FINDINGS: A single AP of the chest demonstrates enlarged heart. Bilateral lower lobe infiltrate and opacities with small bilateral pleural effusions are noted. IMPRESSION: Bilateral lower lobe infiltrate and pleural effusions are noted. Reviewed, dictated and finalized at location S.
--- NOTE | ~2025-05-15 | US_ITS ---
EXAMINATION: US venous doppler [facility] DATE: 05/16/2025 11:20 INDICATION: Bilateral lower limb swelling TECHNIQUE: Grayscale ultrasound images without and with compression and Doppler ultrasound images of the bilateral lower extremity veins were obtained. COMPARISON: None. FINDINGS: The visualized portions of right common femoral vein, profunda (deep) femoral vein, femoral vein, popliteal vein, posterior tibial veins, peroneal veins and greater saphenous vein outflow are patent. The visualized portions of left common femoral vein, profunda femoral vein, femoral vein, popliteal vein, posterior tibial veins, peroneal veins and greater saphenous vein outflow are patent. IMPRESSION: 1. No deep venous thrombosis in either lower limb. Reviewed, dictated and finalized at location A.
--- NOTE | ~2025-05-15 | XR_ITS ---
EXAMINATION: XR chest 1V portable COMPARISON: No comparisons available. HISTORY: CHF/cardiomyopathy FU PT C.O. RECENT H/A FINDINGS: Moderate pulmonary venous congestion. Small basilar infiltrates No pneumothorax. Moderate cardiomegaly. Mediastinal and hilar contours are within normal limits. Bony thorax no acute abnormality. Miscellaneous: None Impression: CHF. Reviewed, dictated and finalized at location P. Impression: CHF.
--- NOTE | ~2025-05-15 | XR_ITS ---
EXAMINATION: XR chest 1V portable COMPARISON: No comparisons available. HISTORY: CHF FINDINGS: Mild pulmonary venous congestion. No pneumothorax. Mild cardiomegaly. Mediastinal and hilar contours are within normal limits. Bony thorax no acute abnormality. Miscellaneous: None Impression: Minimal CHF Reviewed, dictated and finalized at location P. Impression: Minimal CHF
--- NOTE | ~2025-05-15 | US_ITS ---
EXAMINATION: US renal BI DATE: 05/16/2025 11:20 INDICATION: Worsening renal failure TECHNIQUE: Multiple ultrasound grayscale images of the kidneys were obtained. COMPARISON: 02/02/2023 FINDINGS: The right kidney measures 7.6 x 2.9 x 2.5 cm. With mild diffuse cortical thinning The left kidney measures 11.1 x 3.8 x 4.4 cm. The kidneys demonstrate normal echogenicity. There is no hydronephrosis in either kidney. No stones identified. The bladder is normal. IMPRESSION: 1. Increasing mild right renal atrophy. No hydronephrosis in either kidney. Reviewed, dictated and finalized at location A.
--- OUTSIDE RECORDS SUMMARY | 2025-05-15 18:48 | XMS_ITS | Clinical Summary ---
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
--- NOTE | 2025-05-15 18:51 | ECG_ITS ---
Test Date: 2025-05-15 19:05:11 Measurements Intervals [place] Rate: 134 P: 0 [place]: 0 QRS: 72 QRSD: 126 T: -21 QT: 327 QTc: 489 Interpretive Statements ATRIAL FIBRILLATION WITH RAPID VENTRICULAR RESPONSE RIGHT BUNDLE BRANCH BLOCK BASELINE ARTIFACT- I, II, III, AVR, AVL ,AVF, V1-V2, V4-V6 ABNORMAL ECG No previous ECG available for comparison Electronically Signed On 05-16-2025 05:16:14 CDT by Jorge Quevedo D.O.
[2025-05-15 19:37] LABS: Hematocrit 35.2 % (37.0-47.0); Hemoglobin 11.6 g/dL (12.0-15.0); Immature Granulocyte Percent A 0.4 % (0-0.5); Lymphocytes Absolute Auto 1.50 K/mm3 (0.9-3.2); Mean Corpuscular HGB Conc 33.0 g/dl (32-36); Mean Corpuscular Hemoglobin 26.7 pg (26-34); Mean Corpuscular Volume 81.1 fl (80-100); Nucleated Red Blood Cells Absolute Auto 0.000 K/mm3 (0.0-0.012); Nucleated Red Blood Cells Perc 0.0 % (0.0-0.2); Platelet Count Result 179 k/mm3 (150-375); Red Blood Count 4.34 M/mm3 (4.2-5.4); White Blood Count 9.4 K/mm3 (4.5-10.0)
[2025-05-15] MEDS: dilTIAZem 100 MG/100 ML 100 MG/100 ML BAG IV CONT (19:44)
[2025-05-15 19:49] LABS: Alanine Aminotransferase 62 U/L (6-35); Albumin Level 4.1 g/dL (3.5-5.1); Alkaline Phosphatase 160 U/L (38-126); Anion Gap 15 mmol/L (4-12); Aspartate Amino Transferase 36 U/L (14-36); Bilirubin,Total 1.2 mg/dL (0.2-1.3); Blood Urea Nitrogen 54 mg/dL (7-17); Calcium 8.5 mg/dL (8.4-10.2); Carbon Dioxide 12 mmol/L (22-30); Chloride 110 mmol/L (98-107); Estimated Glomerular Filt Rate 20; Glucose 126 mg/dL (65-110); Magnesium 1.1 mg/dL (1.6-2.3); Potassium 4.5 mmol/L (3.4-5.0); Sodium 137 mmol/L (137-145); Total Protein 7.2 g/dL (6.3-8.2)
[2025-05-15 20:01] LABS: Troponin I < 0.012 ng/mL (0.000-0.034)
[2025-05-15 20:13] LABS: Influenza A QL RT-PCR Negative (Negative); Influenza B QL RT-PCR Negative (Negative); RSV RNA, RT-PCR Negative (Negative); SARS-CoV-2 RNA PCR Negative (Negative)
--- NOTE | 2025-05-15 20:45 | PC.NURSE ---
Per lakshmi Contreras to titrate cardizem to 10mg/hr.
--- NOTE | 2025-05-15 20:46 | ED_ITS ---
HPI - General Adult General Chief complaint: Shortness of Breath/Dyspnea Stated complaint: SOB, R pointer finger injury Time Seen by Provider: 05/15/25 19:08 History of Present Illness HPI narrative: The patient is a 79-year-old female presents emergency department will have chief complaint of shortness of breath for the last week patient reports she has a little burn to her right index finger patient reports that she has been short of breath with exertion reports that she has had no fever Related Data Home Medications ?Medication ?Instructions ?Recorded ?Confirmed ?Last Taken ?Type loratadine 10 mg tablet (Allergy 10 mg PO DAILY 03/01/25 Unknown History Relief (loratadine)) multivitamin 1 tablet PO DAILY 10/12/21 0 03/01/25 Unknown History Allergies Allergy/AdvReac Type Severity Reaction Status Date / Time Sulfa (Sulfonamide AdvReac Mild Anxiety Verified 03/01/25 14:58 Antibiotics) Review of Systems 2 Review of Systems: A 10 system review of systems was completed on the patient and is negative except for what is stated in the HPI. Nursing and ancillary documentation was reviewed. 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 Smoking packs per day: 1 Smoking cigarettes per day: 20.0 Years smoked: 20 Smoking pack-years: 20.00 Smoking status: Former smoker Smoking end date: 11/29/94 Alcohol intake: never Substance use: never Substance use type: does not use Lack of Transportation: No Lack of Food: Never True Current Housing: I Have Housing Concerned About Future Housing: No Difficulty Paying Gas/Electric Bills: No Difficulty Paying for Meds: No Currently Unemployed: No Education: Trade/Vocational Certificate Difficulty w/ Childcare or Family Care: No Living arrangements: with family Occupation/Education: retired Exam 2 Narrative: GENERAL: Well-appearing, well-nourished, and in no acute distress. HEAD: Normocephalic, atraumatic. EYES: PERRLA and EOMI. ENT: Nares clear, no rhinorrhea or epistaxis. Mucous membranes moist. NECK: Supple. CHEST: Clear to auscultation. No respiratory distress. HEART: Tachycardic rate and irregular rhythm. No murmur heard. Normal peripheral pulses. ABDOMEN: Soft, nontender, nondistended, normal active bowel sounds. EXTREMITIES: Normal range of motion. No edema. SKIN: Warm, dry, no rash. NEURO: No focal deficits. Alert and oriented x3. PSYCH: Normal mood and affect. Course Vital Signs Vital signs: Vital Signs Temperature 36.6 C 05/15/25 18:47 Pulse Rate 135 H 05/15/25 18:47 Respiratory Rate 16 05/15/25 18:47 Blood Pressure 132/108 H 05/15/25 18:47 Pulse Oximetry 93 05/15/25 18:47 Oxygen Delivery Room Air 05/15/25 18:47 Temperature 36.6 C 05/15/25 18:47 Pulse Rate 132 H 05/15/25 20:45 Respiratory Rate 25 H 05/15/25 20:26 Blood Pressure 111/81 05/15/25 20:45 Pulse Oximetry 95 05/15/25 20:26 Oxygen Delivery Room Air 05/15/25 19:35 Medical Decision Making [facility] Narrative Medical decision making narrative: Differential diagnosis includes pneumonia, new onset CHF, ACS, COVID flu, RSV Chest x-ray did show some possible infiltrates and effusions. The patient shows evidence of acute kidney injury troponin was negative Due to the patient having new onset AFib the patient was started on a Cardizem drip patient also had a magnesium of 1.1 this was replaced in the emergency department patient was given some gentle hydration as her creatinine has gone to 2.34 Vital Signs Vital Signs: Vital Signs Temperature 36.6 C 05/15/25 18:47 Pulse Rate 135 H 05/15/25 18:47 Respiratory Rate 16 05/15/25 18:47 Blood Pressure 132/108 H 05/15/25 18:47 Pulse Oximetry 93 05/15/25 18:47 Oxygen Delivery Room Air 05/15/25 18:47 Temperature 36.6 C 05/15/25 18:47 Pulse Rate 132 H 05/15/25 20:45 Respiratory Rate 25 H 05/15/25 20:26 Blood Pressure 111/81 05/15/25 20:45 Pulse Oximetry 95 05/15/25 20:26 Oxygen Delivery Room Air 05/15/25 19:35 Lab Data 05/15/25 19:30 05/15/25 19:30 Labs: Lab Results 05/15/25 05/15/25 Range/Units 19:30 20:19 WBC 9.4 (4.5-10.0) K/mm3 RBC 4.34 (4.2-5.4) M/mm3 Hgb 11.6 L (12.0-15.0) g/dL Hct 35.2 L (37.0-47.0) % MCV 81.1 (80-100) fl MCH 26.7 (26-34) pg MCHC 33.0 (32-36) g/dl RDW 16.3 H (11.5-14.5) % Plt Count 179 (150-375) k/mm3 MPV 10.9 H (7.4-10.4) fl Immature Gran % (Auto) 0.4 (0-0.5) % Neut % (Auto) 74.8 H (45.5-73.1) % Lymph % (Auto) 15.9 L (18.3-44.2) % Ware % (Auto) 6.8 (2.6-8.5) % Eos % (Auto) 1.4 (0-4.4) % Baso % (Auto) 0.7 (0.2-1.2) % Lymph # (Auto) 1.50 (0.9-3.2) K/mm3 Ware # (Auto) 0.6 (0.1-0.6) K/mm3 Eos # (Auto) 0.1 (0-0.3) K/mm3 Baso # (Auto) 0.1 (0.0-0.1) K/mm3 Abs Immat Gran (auto) 0.04 H (0.00-0.031) K/mm3 Absolute Neuts (auto) 7.1 H (1.3-6.7) K/mm3 Absolute Nucleated RBC 0.000 (0.0-0.012) K/mm3 Nucleated RBC % 0.0 (0.0-0.2) % Sodium 137 (137-145) mmol/L Potassium 4.5 (3.4-5.0) mmol/L Chloride 110 H (98-107) mmol/L Carbon Dioxide 12 L (22-30) mmol/L Anion Gap 15 H (4-12) mmol/L BUN 54 H D (7-17) mg/dL Creatinine 2.34 H (0.7-1.0) mg/dL Estim Creat Clear Calc Not Reportable Estimated GFR 20 L (59 - ) Glucose 126 H (65-110) mg/dL Lactic Acid 2.2 H (0.7-2.0) mmol/L Calcium 8.5 (8.4-10.2) mg/dL Magnesium 1.1 L (1.6-2.3) mg/dL Total Bilirubin 1.2 (0.2-1.3) mg/dL AST 36 (14-36) U/L ALT 62 H (6-35) U/L Alkaline Phosphatase 160 H (38-126) U/L Troponin I < 0.012 (0.000-0.034) ng/mL NT-Pro-B Natriuret Pep Pending Total Protein 7.2 (6.3-8.2) g/dL Albumin 4.1 (3.5-5.1) g/dL Urine Color Pending Urine Appearance Pending Urine pH Pending Ur Specific [place] Pending Urine Protein Pending Urine Glucose (UA) Pending Urine Ketones Pending Ur Blood (Man) Pending Urine Nitrate Pending Urine Bilirubin Pending Urine Urobilinogen Pending Leukocyte Esterase Rfl Pending Influenza A (RT-PCR) Negative (Negative) Influenza B (RT-PCR) Negative (Negative) RSV (RT-PCR) Negative (Negative) SARS-CoV-2 RNA (RT-PCR) Negative (Negative) Critical Care Time Critical Care Time Critical Care Time: Yes Total Critical Care Time: 35 Discharge Plan Discharge Clinical Impression: New onset a-fib, Breath shortness, Pneumonia, Hypomagnesemia, Acute kidney injury Patient Disposition: Still a Patient Condition: Stable Patient Language: Spanish Prescriptions: No Action loratadine [Allergy Relief (loratadine)] 10 mg tablet 10 mg PO DAILY multivitamin Tablet 1 tablet PO DAILY lidocaine 5 % ointment 1 applic topical TID PRN (Reason: pain) Qty: 50 2RF meloxicam 15 mg tablet 15 mg PO DAILY Qty: 90 3RF tramadol 50 mg tablet 50 mg PO Q6H PRN (Reason: pain) Qty: 90 1RF meloxicam 7.5 mg tablet 7.5 mg PO DAILY Qty: 30 5RF omeprazole 20 mg capsule,delayed release(DR/EC) See Rx Instructions .ROUTE .COMPLEX Qty: 90 1RF Dose Instruction: TAKE 1 CAPSULE BY MOUTH EVERY DAY Rx Instructions: TAKE 1 CAPSULE BY MOUTH EVERY DAY pregabalin 75 mg capsule 150 mg PO BID Qty: 360 1RF atenolol 100 mg tablet 100 mg PO DAILY Qty: 90 1RF amlodipine 5 mg tablet See Rx Instructions .ROUTE .COMPLEX Qty: 90 1RF Dose Instruction: TAKE 1 TABLET BY MOUTH EVERY DAY Rx Instructions: TAKE 1 TABLET BY MOUTH EVERY DAY atorvastatin 20 mg tablet See Rx Instructions .ROUTE .COMPLEX Qty: 90 1RF Dose Instruction: TAKE 1 TABLET BY MOUTH EVERY DAY Rx Instructions: TAKE 1 TABLET BY MOUTH EVERY DAY diclofenac epolamine 1.3 % patch 12 hour 1 patch topical Q12H Qty: 30 2RF Follow-up/Referrals: Esau Longo MD [Primary Care Provider, Family Practice] Time of Disposition: 20:52
[2025-05-15 20:54] LABS: Add Urine Microscopic? YES; Appearance Urine Cloudy (Clear); Glucose Urine UA Negative (Negative); Leukocyte Esterase Ur 1+ LEU/UL (Negative); Need Manual Microscopic Reviewed; Nitrate Urine Negative (Negative); Specific Grav Ur 1.024 (1.001-1.035)
[2025-05-15] MEDS: MAGNESIUM SULF 2 GM/WATER 50ML 2 GM/50 ML BAG IVPB (21:07)
[2025-05-15 21:10] LABS: INR 1.3; Prothrombin Time 15.9 Seconds (11.1-14.7)
[2025-05-15 21:11] LABS: Partial Thromboplastin Time 34.6 Seconds (22.3-36.8)
--- NOTE | 2025-05-15 21:34 | PC.NURSE ---
Both IV lines in R. arm started prior to blood cultures being ordered. IV started in L. arm after blood cultures ordered but would not give us any blood. Multiple straight sticks attempted without success. BRENNON Almaraz notified to call phlebotomy for blood cultures. Dr. Temple notified of delay. Per Dr. Temple, do not start antibiotics at this time without cultures.
[2025-05-15 21:39] LABS: NT Pro B Type Natriuretic Pept 12800 pg/mL (19.9-100)
[2025-05-15] MEDS: SODIUM CHLORIDE 0.9% IV 1,000 ML 999 ML IV CONT (21:39)
--- NOTE | 2025-05-15 21:59 | PC.NURSE ---
Phlebotomy at bedside.
[2025-05-15] MEDS: cefTRIAXone 1 GM in SODIUM CHLORIDE 0.9% IV 50 ML 100 ML IVPB (22:09)
[2025-05-15] MEDS: HEPARIN SOD/D5W 100 UNITS/ML 25,000 UNITS/250 ML BAG 13 UNITS IV CONT (22:16)
--- NOTE | 2025-05-15 22:34 | PC.NURSE ---
Updated pt and family regarding bed status in house and ways we could improve her stay should she be boarding in ED overnight. Informed them that this RN would keep them updated.
[2025-05-15 22:42] LABS: Troponin I 0.012 ng/mL (0.000-0.034)
--- NOTE | 2025-05-15 22:52 | ECG_ITS ---
Test Date: 2025-05-15 23:09:00 Measurements Intervals [place] Rate: 95 P: 0 [place]: 0 QRS: 48 QRSD: 130 T: -6 QT: 379 QTc: 477 Interpretive Statements ATRIAL FIBRILLATION RIGHT BUNDLE BRANCH BLOCK BASELINE ARTIFACT- II, III, AVF ABNORMAL ECG Compared to ECG 05/15/2025 19:05:11 HEART RATE HAS DECREASED Electronically Signed On 05-16-2025 05:12:07 CDT by Jorge Quevedo D.O.
--- NOTE | 2025-05-15 23:12 | PC.NURSE ---
Pt. IV in L. A.C. accidently removed by pt.
[2025-05-15] MEDS: AZITHROMYCIN IV 500 MG in SODIUM CHLORIDE 0.9% IV 250 ML IVPB (23:26)
--- NOTE | 2025-05-15 23:37 | PC.NURSE ---
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
[2025-05-16] VITALS (55 sets, daily range): BP systolic 70–128; BP diastolic 34–96; PULSE 79–136; RESP 16–34; TEMP 36.4–36.7; O2SAT 90–100; BMI 32.1
--- NOTE | 2025-05-16 | ECHO_ITS ---
Patient Info Name: Tania Walker Age: 79 years : 1945 Gender: Female Ht: 67 in Wt: 205 lbs BSA: 2.13 m2 HR: 114 bpm BP: 120 / 78 mmHg Technical Quality: Good Exam Date: 05/16/2025 2:49 PM Patient Status: I Admit Date: 05/16/2025 Exam Type: CA echo doppler color flow Complete two-dimensional, color flow and Doppler transthoracic echocardiogram is performed. Staff Referring Physician: Yvonne Cortes NP Lighting Engineer: Conrad Elizalde III Attending Provider: Claude Dexter MD Summary 1. Complete two-dimensional, color flow and Doppler transthoracic echocardiogram is performed. 2. Left ventricular chamber dimension is severely enlarged. 3. Left ventricular systolic function is severely globally reduced, estimated at 25-30. 4. The left ventricular diastolic function is abnormal. 5. E/e' 18 is elevated. 6. Right ventricular chamber dimension is mildly enlarged. 7. Right ventricular systolic function is at least mildly reduced and with abnormal TAPSE 1.2 cm. 8. Left atrial chamber dimension is moderately enlarged. 9. Right atrial chamber dimension is mildly enlarged. 10. There is mild aortic valve sclerosis. 11. There is moderate to severe mitral valve regurgitation. 12. There is mild to moderate tricuspid valve regurgitation. 13. Mild pulmonary hypertension, estimated pulmonary arterial systolic pressure is 41 mmHg. 14. There is trace pulmonic regurgitation. 15. Dilated inferior vena cava with >50% collapse upon inspiration consistent with elevated right atrial pressure, 10 mmHg. Left Ventricle E/e' 18 is elevated. Left ventricular chamber dimension is severely enlarged. Left ventricular systolic function is severely globally reduced, estimated at 25-30. The left ventricular diastolic function is abnormal. Right Ventricle Right ventricular chamber dimension is mildly enlarged. Right ventricular systolic function is at least mildly reduced and with abnormal TAPSE 1.2 cm. Left Atria Left atrial chamber dimension is moderately enlarged. Right Atria Right atrial chamber dimension is mildly enlarged. Aortic Valve The aortic valve is trileaflet. There is mild aortic valve sclerosis. There is no aortic valve stenosis. There is no aortic valve regurgitation. Pulmonic Valve There is trace pulmonic regurgitation. Mitral Valve There is no mitral valve stenosis. There is moderate to severe mitral valve regurgitation. Tricuspid Valve There is mild to moderate tricuspid valve regurgitation. Mild pulmonary hypertension, estimated pulmonary arterial systolic pressure is 41 mmHg. Pericardium/Pleural There is no pericardial effusion. Inferior Vena Cava Dilated inferior vena cava with >50% collapse upon inspiration consistent with elevated right atrial pressure, 10 mmHg. Aorta The aortic root size at the sinus of Valsalva is normal. Left Ventricular Outflow Tract Name Value Normal LVOT 2D LVOT Diameter 2.1 cm LVOT Doppler LVOT Peak Velocity 80 cm/s LVOT Peak Gradient 2 mmHg LVOT Mean Gradient 1 mmHg LVOT VTI 11 cm LVOT VTI/AV VTI Ratio 0.7 LVOT Stroke Volume 36 ml LVOT CO 4.1 l/min LVOT CI 1.9 l/min/m2 Pulmonic Valve Name Value Normal PV Doppler PV Peak Velocity 51 cm/s PV Peak Gradient 1 mmHg PV Mean Gradient 1 mmHg Mitral Valve Name Value Normal MV Doppler MV Peak Gradient 8 mmHg MV Mean Gradient 3 mmHg MV Area (Cont Eq VTI) 1.6 cm2 MV Regurgitation Doppler MR Peak Gradient 86 mmHg MR ERO (PISA) 0.21 cm2 MR Volume (PISA) 25 ml MV Diastolic Function MV E Peak Velocity 128 cm/s MV A Peak Velocity 1 cm/s MV E/A 178.9 MV Decel Time (PW) 140 ms MV Annular TDI MV E/e' (Septal) 20.2 MV E/e' (Lateral) 16.8 MV E/e' (Average) 18.5 Tricuspid Valve Name Value Normal TV Regurgitation Doppler TR Peak Velocity 277 cm/s TR Peak Gradient 20 mmHg Estimated PAP/RSVP RA Pressure 10 mmHg <=5 PA Systolic Pressure 41 mmHg <36 RV Systolic Pressure 41 mmHg <36 TV Annular TDI TV Lateral Marie s' Velocity 5.3 cm/s >=9.5 Aortic Valve Name Value Normal AV Doppler AV Peak Velocity 110 cm/s AV Peak Gradient 3 mmHg AV Mean Gradient 1 mmHg AV VTI 15 cm AV Area (Cont Eq VTI) 2.5 cm2 >=3.0 AV Area (Cont Eq Kirill) 2.4 cm2 AV DI (Kirill) 0.73 AV Regurgitation 2D LVOT Area 3.4 cm2 Ventricles Name Value Normal LV Dimensions 2D/MM IVS Diastolic Thickness (2D) 0.9 cm 0.6-1.0 LVID Diastole (2D) 5.9 cm 3.8-5.2 LVIW Diastolic Thickness (2D) 0.9 cm 0.6-0.9 LVID Systole (2D) 4.8 cm 2.2-3.5 LVOT Diameter 2.1 cm LV Mass (2D Cubed) 209.34 g 67.00-162.00 LV Mass Index (2D Cubed) 98 g/m2 43-95 Relative Wall Thickness (2D) 0.31 <=0.42 LV Fractional Shortening/Ejection Fraction 2D/MM LV Fractional Shortening (2D) 18 % 27-45 LV EF (2D Teichchanelz) 37 % LV Diastolic Volume (4C MOD) 101 ml LV EF (4C MOD) 38 % LV Diastolic Volume (2C MOD) 102 ml LV EF (2C MOD) 41 % LV Diastolic Volume (BP MOD) 108 ml 46-106 LV Diastolic Volume Index (BP MOD) 51 ml/m2 29-61 LV Systolic Volume (BP MOD) 62 ml 14-42 LV Systolic Volume Index (BP MOD) 29 ml/m2 8-24 LV EF (BP MOD) 42 % 54-74 LV Diastolic Length (4C) 6.9 cm LV Systolic Length (4C) 6.5 cm LV Stroke Volume (4C MOD) 38 ml Atria Name Value Normal LA Dimensions LA Volume (4C A-L) 88 ml LA Volume (BP A-L) 99 ml RA Dimensions RA Systolic Major [place] Length (4C) 6.1 cm 2.2-2.8 RA Area (4C) 19.8 cm2 <=18.0 Report Signatures
[2025-05-16] MEDS: SODIUM CHLORIDE 0.9% IV 1,000 ML 999 ML (00:25)
--- NOTE | 2025-05-16 00:39 | PC.NURSE ---
pt BP at 77/57. EDP made aware. EDP stated to start a Normal Saline Bolus and hold the diltiazem drip.
[2025-05-16 02:05] LABS: Alveolar/Arterial O2 Gradient 162.4 mmHg; Carboxyhemoglobin 0.7 % THb (0-2.0); Fractional Inspired Oxygen 40 %; HCO3 ABG 12.0 mEq/l (22.0-26.0); Methemoglobin ABG 0.3 %THb (0-1.5); Oxygen Content ABG 16.3 %vol (16.0-22.0); Oxygen Saturation ABG 96.7 % (95.0-100.0); PCO2 ABG 24.7 mmHg (35.0-45.0); PO2 ABG 94.4 mmHg (80.0-100.0); PO2 FiO2 Ratio Arterial Blood 2.36 %; Reduced Hemoglobin 4.1 %THb (0-5.0)
[2025-05-16 04:15] LABS: Hematocrit 35.2 % (37.0-47.0); Hemoglobin 11.1 g/dL (12.0-15.0); Immature Granulocyte Percent A 0.7 % (0-0.5); Lymphocytes Absolute Auto 0.83 K/mm3 (0.9-3.2); Mean Corpuscular HGB Conc 31.5 g/dl (32-36); Mean Corpuscular Hemoglobin 27.1 pg (26-34); Mean Corpuscular Volume 85.9 fl (80-100); Nucleated Red Blood Cells Absolute Auto 0.030 K/mm3 (0.0-0.012); Nucleated Red Blood Cells Perc 0.3 % (0.0-0.2); Platelet Count Result 155 k/mm3 (150-375); Red Blood Count 4.10 M/mm3 (4.2-5.4); White Blood Count 10.5 K/mm3 (4.5-10.0)
[2025-05-16 04:28] LABS: Partial Thromboplastin Time 148.6 Seconds (22.3-36.8)
--- NOTE | 2025-05-16 04:29 | PM.IMHP ---
H&P: HPI History of Present Illness Date/Time: 05/16/25 04:29 Chief Complaint: Shortness of breath Narrative: This is a 79-year-old female patient who has not been feeling well for the last week however shortness of breath gotten progressively worse over the last 24 hours. She denies any chest pain but is more short of breath with exertion. She denies any fever or chills. Her white count was elevated to be 10.5. H&H is 11.1 and 35.2. Arterial blood gases pH 7.303 pCO2 was 24.7 and bicarb 12. Patient was started on a BiPAP due to her shortness of breath. Chloride 110, carbon dioxide 12, anion gap 15, BUN 54, creatinine 2.34. Lactic initially was 2.2 and came down to 1.9. Troponin negative x2. BNP 39042. Magnesium was low at 1.1. Urine is cloudy with 2+ protein, 1+ leukocyte esterase, and trace ketones. Viral serology is negative. Chest x-ray was read as bilateral lower lobe infiltrate and pleural effusions are noted. Her EKG was read as atrial fibrillation with rapid ventricular response with a heart rate of 134. She was started on a Zithromax and Rocephin for the infiltrates. She was started on a Cardizem drip and heparin drip in the emergency room. She was given IV magnesium, given a neb treatment as well as IV fluids. The patient is being admitted to IMU observation on the date of service of 05/16/2024. Review of Systems Constitutional: Constitutional: Reports as per HPI and Reports no additional constitutional complaints Eyes: Eyes: Reports as per HPI and Reports no additional eye complaints ENT: Reports system reviewed and no additional complaints, except as documented and Reports Normal hearing present Cardiovascular: Cardiovascular: Reports no additional cardiovascular complaints Respiratory: Respiratory: Reports as per HPI and Reports no additional respiratory complaints Gastrointestinal: Gastrointestinal: Reports as per HPI and Reports no additional gastrointestinal complaints Genitourinary: Genitourinary: Reports no additional female genitourinary complaints Musculoskeletal: Musculoskeletal: Reports no additional musculoskeletal complaints Integumentary/Breasts: Skin/Breast: Reports system reviewed and no additional complaints, except as docu Neurologic: Reports system reviewed and no additional complaints, except as documented and Reports Normal hearing present Psychiatric: Psychiatric: Reports no additional psychiatric complaints and Reports as per HPI Hematologic/Lymphatic: Hematologic/Lymphatic: Reports no additional hematologic/lymphatic complaints Allergic/Immunologic: Allergic/Immunologic: Reports no additional allergic/immunologic complaints [facility] Past Medical History Medical History Neuropathy Chronic renal failure Hyperlipidemia Essential (primary) hypertension Irritable bowel syndrome GERD (gastroesophageal reflux disease) Arthritis Allergies Surgical History Surgical History Hx of LASIK History of cataract surgery Family History Family History Sibling Patient's sister is in good health FH: brain cancer Mother Patient's mother is Family history of liver disease Father Family history of malignant neoplasm Patient's father is Other Diabetes mellitus Social History Social History Social History: She is . She has 2 children a son and a daughter. She lives with her daughter. 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 Code status: Full code Smoking packs per day: 1 Smoking cigarettes per day: 20.0 Years smoked: 20 Smoking pack-years: 20.00 Smoking status: Former smoker Smoking end date: 11/29/94 Alcohol intake: never Substance use: never Substance use type: does not use Lack of Transportation: No Lack of Food: Never True Current Housing: I Have Housing Concerned About Future Housing: No Difficulty Paying Gas/Electric Bills: No Difficulty Paying for Meds: No Currently Unemployed: No Education: High School Diploma/GED Difficulty w/ Childcare or Family Care: No Living arrangements: with family Occupation/Education: retired Spiritual care concerns: No Meds Home Medications and Allergies Home Medications ?Medication ?Instructions ?Recorded ?Confirmed ?Type loratadine 10 mg tablet (Allergy 10 mg PO DAILY 10/12/21 05/16/25 History Relief (loratadine)) multivitamin 1 tablet PO DAILY 10/12/21 05/16/25 History tramadol 50 mg tablet 50 mg PO Q6H PRN pain #90 tabs 02/18/23 05/16/25 Rx lidocaine 5 % topical ointment 1 applic topical TID PRN pain #50 01/03/24 05/16/25 Rx grams meloxicam 7.5 mg tablet 7.5 mg PO DAILY #30 tabs 06/12/24 05/16/25 Rx meloxicam 15 mg tablet 15 mg PO DAILY #90 tabs 08/24/24 05/16/25 Rx omeprazole 20 mg capsule,delayed See Rx Instructions .Route 11/16/24 05/16/25 Rx release .COMPLEX #90 caps amlodipine 5 mg tablet See Rx Instructions .Route 02/22/25 05/16/25 Rx .COMPLEX #90 tabs atenolol 100 mg tablet 100 mg PO DAILY #90 tabs 02/22/25 05/16/25 Rx atorvastatin 20 mg tablet See Rx Instructions .Route 02/22/25 05/16/25 Rx .COMPLEX #90 tabs diclofenac epolamine 1.3 % 1 patch topical Q12H PRN pain, mild 05/16/25 05/16/25 History transdermal 12 hour patch pregabalin 75 mg capsule 150 mg PO .Q12HR 05/16/25 05/16/25 History Allergies Allergy/AdvReac Type Severity Reaction Status Date / Time Sulfa (Sulfonamide AdvReac Mild Anxiety Verified 05/16/25 04:13 Antibiotics) Vital Signs Vital Signs - 24 hr 05/15/25 18:47 05/15/25 19:07 05/15/25 19:15 Temperature 97.9 F Pulse Rate 135 H 140 H 136 H Respiratory Rate 16 21 H 20 Blood Pressure 132/108 H Pulse Oximetry 93 97 Oxygen Delivery Room Air Oxygen Flow Rate Fraction of Inspired Oxygen 05/15/25 19:30 05/15/25 19:31 05/15/25 19:35 Temperature Pulse Rate 135 H 117 H 134 H Respiratory Rate 16 25 H 22 H Blood Pressure 110/95 H 110/95 H Pulse Oximetry 95 95 95 Oxygen Delivery Room Air Oxygen Flow Rate Fraction of Inspired Oxygen 05/15/25 19:44 05/15/25 19:45 05/15/25 19:47 Temperature Pulse Rate 134 H 129 H 122 H Respiratory Rate 20 20 Blood Pressure 110/95 H Pulse Oximetry 94 Oxygen Delivery Oxygen Flow Rate Fraction of Inspired Oxygen 05/15/25 19:49 05/15/25 19:49 05/15/25 20:00 Temperature Pulse Rate 118 H 114 H 111 H Respiratory Rate 24 H 22 H 21 H Blood Pressure 119/97 H 119/97 H Pulse Oximetry 93 95 98 Oxygen Delivery Oxygen Flow Rate Fraction of Inspired Oxygen 05/15/25 20:01 05/15/25 20:15 05/15/25 20:16 Temperature Pulse Rate 122 H 114 H 115 H Respiratory Rate 20 22 H 25 H Blood Pressure 109/66 106/81 Pulse Oximetry 95 91 95 Oxygen Delivery Oxygen Flow Rate Fraction of Inspired Oxygen 05/15/25 20:26 05/15/25 20:30 05/15/25 20:31 Temperature Pulse Rate 115 H 127 H 104 H Respiratory Rate 25 H 25 H 26 H Blood Pressure 106/81 111/81 Pulse Oximetry 95 95 Oxygen Delivery Oxygen Flow Rate Fraction of Inspired Oxygen 05/15/25 20:45 05/15/25 20:45 05/15/25 20:46 Temperature Pulse Rate 132 H 110 H 111 H Respiratory Rate 24 H 25 H Blood Pressure 111/81 121/95 H Pulse Oximetry 94 93 Oxygen Delivery Oxygen Flow Rate Fraction of Inspired Oxygen 05/15/25 21:00 05/15/25 21:15 05/15/25 21:30 Temperature Pulse Rate 115 H 102 H 95 Respiratory Rate 19 24 H 22 H Blood Pressure Pulse Oximetry 95 Oxygen Delivery Oxygen Flow Rate Fraction of Inspired Oxygen 05/15/25 21:34 05/15/25 21:37 05/15/25 21:45 Temperature Pulse Rate 94 93 99 Respiratory Rate 25 H 21 H 26 H Blood Pressure 100/77 100/77 Pulse Oximetry 91 93 Oxygen Delivery Oxygen Flow Rate Fraction of Inspired Oxygen 05/15/25 21:47 05/15/25 22:01 05/15/25 22:16 Temperature Pulse Rate 95 105 H 100 Respiratory Rate 26 H 24 H 24 H Blood Pressure 105/66 103/73 104/78 Pulse Oximetry 92 94 90 Oxygen Delivery Oxygen Flow Rate Fraction of Inspired Oxygen 05/15/25 22:30 05/15/25 22:32 05/15/25 22:35 Temperature Pulse Rate 87 Respiratory Rate 24 H Blood Pressure Pulse Oximetry 92 94 Oxygen Delivery Room Air Nasal Cannula Oxygen Flow Rate 2 Fraction of Inspired Oxygen 05/15/25 22:45 05/15/25 22:48 05/15/25 23:00 Temperature Pulse Rate 96 100 88 Respiratory Rate 24 H 25 H 21 H Blood Pressure 101/72 Pulse Oximetry Oxygen Delivery Oxygen Flow Rate Fraction of Inspired Oxygen 05/15/25 23:15 05/15/25 23:21 05/15/25 23:30 Temperature Pulse Rate 90 94 101 H Respiratory Rate 21 H 17 28 H Blood Pressure 116/87 Pulse Oximetry 82 L Oxygen Delivery Oxygen Flow Rate Fraction of Inspired Oxygen 05/15/25 23:31 05/15/25 23:45 05/15/25 23:54 Temperature Pulse Rate 95 93 103 H Respiratory Rate 22 H 27 H 24 H Blood Pressure 124/107 H 143/105 H Pulse Oximetry 91 Oxygen Delivery Oxygen Flow Rate Fraction of Inspired Oxygen 05/16/25 00:02 05/16/25 00:12 05/16/25 00:13 Temperature Pulse Rate 96 79 114 H Respiratory Rate 27 H 24 H 23 H Blood Pressure Pulse Oximetry 90 98 Oxygen Delivery Oxygen Flow Rate Fraction of Inspired Oxygen 05/16/25 00:14 05/16/25 00:15 05/16/25 00:15 Temperature Pulse Rate 118 H 97 91 Respiratory Rate 19 24 H Blood Pressure 81/66 L Pulse Oximetry Oxygen Delivery Oxygen Flow Rate Fraction of Inspired Oxygen 05/16/25 00:16 05/16/25 00:22 05/16/25 00:26 Temperature Pulse Rate 109 H 92 102 H Respiratory Rate 24 H Blood Pressure 70/57 L 70/57 L 91/34 L Pulse Oximetry Oxygen Delivery Oxygen Flow Rate Fraction of Inspired Oxygen 05/16/25 00:27 05/16/25 00:30 05/16/25 00:30 Temperature Pulse Rate 94 86 Respiratory Rate 27 H 21 H Blood Pressure 91/34 L 88/59 L Pulse Oximetry 94 92 94 Oxygen Delivery Nasal Cannula Oxygen Flow Rate 2 Fraction of Inspired Oxygen 05/16/25 00:33 05/16/25 00:35 05/16/25 00:35 Temperature Pulse Rate 99 96 95 Respiratory Rate 25 H 34 H 31 H Blood Pressure 88/59 L Pulse Oximetry 94 100 100 Oxygen Delivery BiPAP BiPAP Oxygen Flow Rate Fraction of Inspired Oxygen 100 05/16/25 00:36 05/16/25 00:40 05/16/25 00:45 Temperature Pulse Rate 105 H Respiratory Rate 24 H Blood Pressure 98/81 L Pulse Oximetry 96 100 99 Oxygen Delivery Oxygen Flow Rate Fraction of Inspired Oxygen 05/16/25 00:45 05/16/25 00:46 05/16/25 00:51 Temperature Pulse Rate 95 95 94 Respiratory Rate 24 H 18 23 H Blood Pressure 100/59 L 102/62 Pulse Oximetry 90 Oxygen Delivery Oxygen Flow Rate Fraction of Inspired Oxygen 05/16/25 00:55 05/16/25 01:01 05/16/25 01:15 Temperature Pulse Rate 118 H 105 H Respiratory Rate 24 H 19 Blood Pressure 109/90 Pulse Oximetry 98 97 Oxygen Delivery Oxygen Flow Rate Fraction of Inspired Oxygen 05/16/25 01:21 05/16/25 01:22 05/16/25 01:24 Temperature Pulse Rate 107 H 110 H 111 H Respiratory Rate 23 H 23 H 22 H Blood Pressure 110/96 H 110/96 H Pulse Oximetry 98 Oxygen Delivery Oxygen Flow Rate Fraction of Inspired Oxygen 05/16/25 01:26 05/16/25 01:30 05/16/25 01:31 Temperature Pulse Rate 102 H 117 H 123 H Respiratory Rate 24 H 20 22 H Blood Pressure 106/92 H Pulse Oximetry 100 100 100 Oxygen Delivery Oxygen Flow Rate Fraction of Inspired Oxygen 05/16/25 01:42 05/16/25 02:08 05/16/25 03:12 Temperature Pulse Rate 108 H 124 H Respiratory Rate 23 H Blood Pressure 120/84 128/65 Pulse Oximetry 100 97 Oxygen Delivery BiPAP Oxygen Flow Rate Fraction of Inspired Oxygen 05/16/25 03:21 05/16/25 03:28 05/16/25 04:00 Temperature 98.1 F Pulse Rate 98 114 H 124 H Respiratory Rate 19 23 H 20 Blood Pressure 104/84 120/78 Pulse Oximetry 96 95 100 Oxygen Delivery BiPAP Oxygen Flow Rate Fraction of Inspired Oxygen Exam Const: General: cooperative, no acute distress, well developed, awake, Physically active, average body habitus and well nourished Nutritional Appearance: average body habitus and well nourished Orientation/consciousness: oriented to person and oriented to place HENMT: Head: normal to inspection, No palpable skull fracture present, normocephalic, atraumatic and abrasion Eyes: General: appearance normal, both eyes and all related structures Alignment and Position: alignment normal Periorbital: periorbital findings normal Eyelids: eyelids normal Neck: Neck: normal visual inspection, full ROM, no lymphadenopathy and trachea midline Chest: Chest palpation & inspection: normal inspection of the chest Resp: Effort & Inspection: normal respiratory effort Auscultation: clear to auscultation bilaterally Percussion: percussion normal Cardio: Palpation: normal PMI Rate: tachycardic Rhythm: abnormal rhythm irregularly irregular GI: Inspection: normal to inspection Percussion: Yes normal to percussion Back/Spine/Pelvis: Back: no CVA tenderness Cervical Spine: cervical ROM normal Skin: General skin exam: normal color Lesions: no lesions Rashes: no rashes Trauma: no lacerations or abrasions Wounds: no wounds Hair: normal Nails: normal Neuro: General: oriented to person and oriented to place Cranial nerves: Yes Equal, round and reactive pupils present and Yes Normal hearing present Cognition (Neuro): normal cognition Extrem: General: normal to inspection Right upper extremity: normal to inspection and shoulder/upper arm Left upper extremity: normal to inspection and shoulder/upper arm Right lower extremity: normal to inspection Left lower extremity: normal to inspection Psych: Appearance: grossly normal Mental Status: mental status grossly normal H&P: Results Labs Labs: Short CBC 05/15/25 05/16/25 Range/Units 19:30 04:10 WBC 9.4 10.5 H (4.5-10.0) K/mm3 Hgb 11.6 L 11.1 L (12.0-15.0) g/dL Hct 35.2 L 35.2 L (37.0-47.0) % Plt Count 179 155 (150-375) k/mm3 BMP 05/15/25 19:30 Sodium 137 Potassium 4.5 Chloride 110 H Carbon Dioxide 12 L BUN 54 H D Creatinine 2.34 H Glucose 126 H Calcium 8.5 Cardiac Enzymes 05/15/25 05/15/25 Range/Units 19:30 22:08 Troponin I < 0.012 0.012 (0.000-0.034) ng/mL Liver Function 05/15/25 Range/Units 19:30 Total Bilirubin 1.2 (0.2-1.3) mg/dL AST 36 (14-36) U/L ALT 62 H (6-35) U/L Alkaline Phosphatase 160 H (38-126) U/L Albumin 4.1 (3.5-5.1) g/dL Urine 05/15/25 Range/Units 20:19 Urine Color Dark yellow (Yellow) Urine Appearance Cloudy H (Clear) Urine pH 5.0 (5.0-9.0) Ur Specific [place] 1.024 (1.001-1.035) Urine Protein 2+ H (Negative) mg/dL Urine Glucose (UA) Negative (Negative) mg/dL ECG Interpretation: NM 0 QRSd 130 QT 379 QTc 477 --[place]-- P 0 QRS 48 T -6 ATRIAL FIBRILLATION RIGHT BUNDLE BRANCH BLOCK [120+ ms QRS DURATION, UPRIGHT V1, 40+ ms S IN I/aVL/V4/V5/V6] POSSIBLE ANTERIOR MYOCARDIAL INFARCTION , OF INDETERMINATE AGE [30 ms Q WAVE IN V3/V4, OR R < 0.2 mV IN V4] Compared to ECG 05/15/2025 19:05:11 Myocardial infarct finding now present Imaging Chest x-ray: Radiologist's impression: Impressions Chest X-Ray 05/15/25 19:36 IMPRESSION: Bilateral lower lobe infiltrate and pleural effusions are noted. Assessment and Plan Assessment and plan (1) Pneumonia: Code(s): J18.9 - Pneumonia, unspecified organism Status: Acute Assessment and Plan: -the patient was started on a Zithromax and Rocephin. However her QTC is borderline I will change her to doxycycline instead. -pending blood and sputum cultures (2) New onset a-fib: Code(s): I48.91 - Unspecified atrial fibrillation Status: Acute Assessment and Plan: -cardiology has been consulted. -she was placed on a Cardizem drip and her routine blood pressure medications were placed on hold due to low blood pressure. Blood pressure 104/84 and 120/78. Her heart rate is in the low teens. -echo has been ordered. -Gael Vasc score four -has bled score is a 3. -heparin drip has been started as well. (3) Essential hypertension: Code(s): I10 - Essential (primary) hypertension Status: Acute Assessment and Plan: -home medications have been held at this time. Due to low blood pressure. -she is currently on a Cardizem drip. (4) Hyperlipidemia: Qualifiers: Hyperlipidemia type: mixed hyperlipidemia Qualified Code(s): E78.2 - Mixed hyperlipidemia Code(s): E78.5 - Hyperlipidemia, unspecified Status: Acute Assessment and Plan: -continue with atrial for statin and monitor liver enzymes (5) Acute kidney injury: Code(s): N17.9 - Acute kidney failure, unspecified Status: Acute Assessment and Plan: -she has acute on chronic renal failure. -renal ultrasound has been ordered. -nephrology has been consulted. -hold nephrotoxic medication. -her BUN is 54 and her baseline is somewhere between 19 and 26. Her creatinine is 2.34 today with a baseline of 1.3-1.5. (6) Hypomagnesemia: Code(s): E83.42 - Hypomagnesemia Status: Acute Assessment and Plan: -magnesium has been supplemented in the emergency room. Repeat this morning and replenish as necessary. Quality VTE Prophylaxis VTE prophylaxis: pharmacologic ordered
[2025-05-16 05:02] LABS: Troponin I 0.014 ng/mL (0.000-0.034)
[2025-05-16 05:54] LABS: Anion Gap 15 mmol/L (4-12); Blood Urea Nitrogen 54 mg/dL (7-17); Calcium 8.0 mg/dL (8.4-10.2); Carbon Dioxide 9 mmol/L (22-30); Chloride 112 mmol/L (98-107); Estimated CRCL calculation 23 ml/min; Estimated Glomerular Filt Rate 21; Glucose 159 mg/dL (65-110); Magnesium 1.7 mg/dL (1.6-2.3); Potassium 4.6 mmol/L (3.4-5.0); Sodium 136 mmol/L (137-145)
[2025-05-16] MEDS: DOXYCYCLINE IV 100 MG in SODIUM CHLORIDE 0.9% IV 100 ML IVPB ×2 (05:56→17:58)
[2025-05-16] MEDS: ATORVASTATIN 20 MG TABLET BY MOUTH (08:49)
--- NOTE | 2025-05-16 11:03 | P.CONCA_ITS ---
Assessment and Plan Assessment and plan (1) New onset a-fib: Code(s): I48.91 - Unspecified atrial fibrillation Status: Acute Assessment and Plan: This is a new diagnosis. Chronicity is unknown. I discussed the diagnosis of atrial fibrillation including pathophysiology, management strategies including rate control versus rhythm control, and complications/risks of atrial fibrillation. She remains in atrial fibrillation with rapid ventricular response despite being on a diltiazem drip. For the short term, will plan for rate control strategy, but ultimately will recommend CYRUS/cardioversion tomorrow. * Discontinue diltiazem because of hypotension * Will give metoprolol 25 mg x1 now. If her blood pressure tolerates, will schedule q.12 hours and titrate as needed * If blood pressure does not tolerate metoprolol, can consider amiodarone though I would like to try and avoid that given we are unsure of the onset of her arrhythmia. * Also avoiding digoxin because of her renal function * Monitor electrolytes. Replace potassium to goal of greater than 4.0, magnesium 2.0 * Check TSH * NPO at midnight for possible CYRUS/cardioversion tomorrow (2) Essential (primary) hypertension: Code(s): I10 - Essential (primary) hypertension Status: Acute Assessment and Plan: Borderline hypotensive currently (3) Hyperlipidemia: Qualifiers: Hyperlipidemia type: mixed hyperlipidemia Qualified Code(s): E78.2 - Mixed hyperlipidemia Code(s): E78.5 - Hyperlipidemia, unspecified Status: Acute Assessment and Plan: Continue statin (4) Breath shortness: Code(s): R06.02 - Shortness of breath Status: Acute Assessment and Plan: Secondary to pneumonia and CHF. Will give 1 time dose of IV Lasix now. Awaiting echocardiogram. Further recommendations based on results of that study. (5) Pneumonia: Code(s): J18.9 - Pneumonia, unspecified organism Status: Acute Assessment and Plan: On antibiotics and supplemental oxygen. Management per hospitalist. History of Present Illness History of Present Illness Consult date/time: 05/16/25 11:03 Requesting physician: Yvonne Cortes APRN Consult reason: atrial fibrillation Reason For Visit: New onset AFib Narrative: Tania Walker is a 79-year-old female with chronic kidney disease, hypertension, hyperlipidemia. This is a patient who presented to the hospital with a chief complaint of shortness of breath. Cardiology is consulted for atrial fibrillation with rapid ventricular response. She reports progressive shortness of breath over the past week. She has also been experiencing orthopnea and reports intermittent lower extremity swelling. Her initial EKG on arrival to the hospital showed atrial fibrillation with rapid ventricular response. She does not have any history of arrhythmias and denies any other cardiac history. She does report intermittent palpitations prior to her hospitalization. She denies any chest pain. She does have shortness of breath as mentioned above. She has been placed on a diltiazem drip but her heart rate remains elevated generally in 120s to 130s. Currently, she does not feel any palpitations but remains short of breath. Review of Systems 2 Review of Systems: All systems reviewed & are unremarkable except as noted in HPI and below PMFSH Past Medical History Medical History Neuropathy Chronic renal failure Hyperlipidemia Essential (primary) hypertension Irritable bowel syndrome GERD (gastroesophageal reflux disease) Arthritis Allergies Surgical History Surgical History Hx of LASIK History of cataract surgery Family History Family History Sibling Patient's sister is in good health FH: brain cancer Mother Patient's mother is Family history of liver disease Father Family history of malignant neoplasm Patient's father is Other Diabetes mellitus Social History Social History Social History: She is . She has 2 children a son and a daughter. She lives with her daughter. 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: Full code Smoking packs per day: 1 Smoking cigarettes per day: 20.0 Years smoked: 20 Smoking pack-years: 20.00 Smoking status: Former smoker Smoking end date: 11/29/94 Alcohol intake: never Substance use: never Substance use type: does not use Lack of Transportation: No Lack of Food: Never True Current Housing: I Have Housing Concerned About Future Housing: No Difficulty Paying Gas/Electric Bills: No Difficulty Paying for Meds: No Currently Unemployed: No Education: High School Diploma/GED Difficulty w/ Childcare or Family Care: No Living arrangements: with family Occupation/Education: retired Spiritual care concerns: No Meds Home Medications and Allergies Home Medications ?Medication ?Instructions ?Recorded ?Confirmed ?Type loratadine 10 mg tablet (Allergy 10 mg PO DAILY 05/16/25 History Relief (loratadine)) multivitamin 1 tablet PO DAILY 10/12/21 1 History tramadol 50 mg tablet 50 mg PO Q6H PRN pain #90 ta bs 02/18/23 05/16/25 Rx lidocaine 5 % topical ointment 1 applic topical TID CA N pain #50 01/03/24 05/16/25 Rx grams meloxicam 7.5 mg tablet 7.5 mg PO DAILY #30 tabs 07/2405/16/25 Rx meloxicam 15 mg tablet 15 mg PO DAILY #90 tabs 08/0205/16/25 Rx omeprazole 20 mg capsule,delayed See Rx Instructions . Route 11/16/24 05/16/25 Rx release .COMPLEX #90 caps amlodipine 5 mg tablet See Rx Instructions .Route 0 02/22/25 05/16/25 Rx .COMPLEX #90 tabs atenolol 100 mg tablet 100 mg PO DAILY #90 tabs 05/16/25 Rx atorvastatin 20 mg tablet See Rx Instructions .Route 0 02/22/25 05/16/25 Rx .COMPLEX #90 tabs diclofenac epolamine 1.3 % 1 patch topical Q12H PRN pa in, mild 05/16/25 05/16/25 History transdermal 12 hour patch pregabalin 75 mg capsule 150 mg PO .Q12HR 05/16/25 History Allergies Allergy/AdvReac Type Severity Reaction Status Date / Time Sulfa (Sulfonamide AdvReac Mild Anxiety Verified 05/16/25 04:13 Antibiotics) Vital Signs Vital Signs - 24 hr 05/15/25 18:47 05/15/25 19:07 05/15/25 19:15 Temperature 36.6 C Pulse Rate 135 H 140 H 136 H Respiratory Rate 16 21 H 20 Blood Pressure 132/108 H Pulse Oximetry 93 97 Oxygen Delivery Room Air Oxygen Flow Rate Fraction of Inspired Oxygen 05/15/25 19:30 05/15/25 19:31 05/15/25 19:35 Temperature Pulse Rate 135 H 117 H 134 H Respiratory Rate 16 25 H 22 H Blood Pressure 110/95 H 110/95 H Pulse Oximetry 95 95 95 Oxygen Delivery Room Air Oxygen Flow Rate Fraction of Inspired Oxygen 05/15/25 19:44 05/15/25 19:45 05/15/25 19:47 Temperature Pulse Rate 134 H 129 H 122 H Respiratory Rate 20 20 Blood Pressure 110/95 H Pulse Oximetry 94 Oxygen Delivery Oxygen Flow Rate Fraction of Inspired Oxygen 05/15/25 19:49 05/15/25 19:49 05/15/25 20:00 Temperature Pulse Rate 118 H 114 H 111 H Respiratory Rate 24 H 22 H 21 H Blood Pressure 119/97 H 119/97 H Pulse Oximetry 93 95 98 Oxygen Delivery Oxygen Flow Rate Fraction of Inspired Oxygen 05/15/25 20:01 05/15/25 20:15 05/15/25 20:16 Temperature Pulse Rate 122 H 114 H 115 H Respiratory Rate 20 22 H 25 H Blood Pressure 109/66 106/81 Pulse Oximetry 95 91 95 Oxygen Delivery Oxygen Flow Rate Fraction of Inspired Oxygen 05/15/25 20:26 05/15/25 20:30 05/15/25 20:31 Temperature Pulse Rate 115 H 127 H 104 H Respiratory Rate 25 H 25 H 26 H Blood Pressure 106/81 111/81 Pulse Oximetry 95 95 Oxygen Delivery Oxygen Flow Rate Fraction of Inspired Oxygen 05/15/25 20:45 05/15/25 20:45 05/15/25 20:46 Temperature Pulse Rate 132 H 110 H 111 H Respiratory Rate 24 H 25 H Blood Pressure 111/81 121/95 H Pulse Oximetry 94 93 Oxygen Delivery Oxygen Flow Rate Fraction of Inspired Oxygen 05/15/25 21:00 05/15/25 21:15 05/15/25 21:30 Temperature Pulse Rate 115 H 102 H 95 Respiratory Rate 19 24 H 22 H Blood Pressure Pulse Oximetry 95 Oxygen Delivery Oxygen Flow Rate Fraction of Inspired Oxygen 05/15/25 21:34 05/15/25 21:37 05/15/25 21:45 Temperature Pulse Rate 94 93 99 Respiratory Rate 25 H 21 H 26 H Blood Pressure 100/77 100/77 Pulse Oximetry 91 93 Oxygen Delivery Oxygen Flow Rate Fraction of Inspired Oxygen 05/15/25 21:47 05/15/25 22:01 05/15/25 22:16 Temperature Pulse Rate 95 105 H 100 Respiratory Rate 26 H 24 H 24 H Blood Pressure 105/66 103/73 104/78 Pulse Oximetry 92 94 90 Oxygen Delivery Oxygen Flow Rate Fraction of Inspired Oxygen 05/15/25 22:30 05/15/25 22:32 05/15/25 22:35 Temperature Pulse Rate 87 Respiratory Rate 24 H Blood Pressure Pulse Oximetry 92 94 Oxygen Delivery Room Air Nasal Cannula Oxygen Flow Rate 2 Fraction of Inspired Oxygen 05/15/25 22:45 05/15/25 22:48 05/15/25 23:00 Temperature Pulse Rate 96 100 88 Respiratory Rate 24 H 25 H 21 H Blood Pressure 101/72 Pulse Oximetry Oxygen Delivery Oxygen Flow Rate Fraction of Inspired Oxygen 05/15/25 23:15 05/15/25 23:21 05/15/25 23:30 Temperature Pulse Rate 90 94 101 H Respiratory Rate 21 H 17 28 H Blood Pressure 116/87 Pulse Oximetry 82 L Oxygen Delivery Oxygen Flow Rate Fraction of Inspired Oxygen 05/15/25 23:31 05/15/25 23:45 05/15/25 23:54 Temperature Pulse Rate 95 93 103 H Respiratory Rate 22 H 27 H 24 H Blood Pressure 124/107 H 143/105 H Pulse Oximetry 91 Oxygen Delivery Oxygen Flow Rate Fraction of Inspired Oxygen 05/16/25 00:02 05/16/25 00:12 05/16/25 00:13 Temperature Pulse Rate 96 79 114 H Respiratory Rate 27 H 24 H 23 H Blood Pressure Pulse Oximetry 90 98 Oxygen Delivery Oxygen Flow Rate Fraction of Inspired Oxygen 05/16/25 00:14 05/16/25 00:15 05/16/25 00:15 Temperature Pulse Rate 118 H 97 91 Respiratory Rate 19 24 H Blood Pressure 81/66 L Pulse Oximetry Oxygen Delivery Oxygen Flow Rate Fraction of Inspired Oxygen 05/16/25 00:16 05/16/25 00:22 05/16/25 00:26 Temperature Pulse Rate 109 H 92 102 H Respiratory Rate 24 H Blood Pressure 70/57 L 70/57 L 91/34 L Pulse Oximetry Oxygen Delivery Oxygen Flow Rate Fraction of Inspired Oxygen 05/16/25 00:27 05/16/25 00:30 05/16/25 00:30 Temperature Pulse Rate 94 86 Respiratory Rate 27 H 21 H Blood Pressure 91/34 L 88/59 L Pulse Oximetry 94 92 94 Oxygen Delivery Nasal Cannula Oxygen Flow Rate 2 Fraction of Inspired Oxygen 05/16/25 00:33 05/16/25 00:35 05/16/25 00:35 Temperature Pulse Rate 99 96 95 Respiratory Rate 25 H 34 H 31 H Blood Pressure 88/59 L Pulse Oximetry 94 100 100 Oxygen Delivery BiPAP BiPAP Oxygen Flow Rate Fraction of Inspired Oxygen 100 05/16/25 00:36 05/16/25 00:40 05/16/25 00:45 Temperature Pulse Rate 105 H Respiratory Rate 24 H Blood Pressure 98/81 L Pulse Oximetry 96 100 99 Oxygen Delivery Oxygen Flow Rate Fraction of Inspired Oxygen 05/16/25 00:45 05/16/25 00:46 05/16/25 00:51 Temperature Pulse Rate 95 95 94 Respiratory Rate 24 H 18 23 H Blood Pressure 100/59 L 102/62 Pulse Oximetry 90 Oxygen Delivery Oxygen Flow Rate Fraction of Inspired Oxygen 05/16/25 00:55 05/16/25 01:01 05/16/25 01:15 Temperature Pulse Rate 118 H 105 H Respiratory Rate 24 H 19 Blood Pressure 109/90 Pulse Oximetry 98 97 Oxygen Delivery Oxygen Flow Rate Fraction of Inspired Oxygen 05/16/25 01:21 05/16/25 01:22 05/16/25 01:24 Temperature Pulse Rate 107 H 110 H 111 H Respiratory Rate 23 H 23 H 22 H Blood Pressure 110/96 H 110/96 H Pulse Oximetry 98 Oxygen Delivery Oxygen Flow Rate Fraction of Inspired Oxygen 05/16/25 01:26 05/16/25 01:30 05/16/25 01:31 Temperature Pulse Rate 102 H 117 H 123 H Respiratory Rate 24 H 20 22 H Blood Pressure 106/92 H Pulse Oximetry 100 100 100 Oxygen Delivery Oxygen Flow Rate Fraction of Inspired Oxygen 05/16/25 01:42 05/16/25 02:08 05/16/25 03:12 Temperature Pulse Rate 108 H 124 H Respiratory Rate 23 H Blood Pressure 120/84 128/65 Pulse Oximetry 100 97 Oxygen Delivery BiPAP Oxygen Flow Rate Fraction of Inspired Oxygen 05/16/25 03:21 05/16/25 03:28 05/16/25 04:00 Temperature 36.7 C Pulse Rate 98 114 H 124 H Respiratory Rate 19 23 H 20 Blood Pressure 104/84 120/78 Pulse Oximetry 96 95 100 Oxygen Delivery BiPAP Oxygen Flow Rate Fraction of Inspired Oxygen 05/16/25 04:00 05/16/25 04:41 05/16/25 04:47 Temperature Pulse Rate 114 H 114 H 114 H Respiratory Rate 22 H 22 H Blood Pressure Pulse Oximetry 96 96 Oxygen Delivery BiPAP BiPAP Oxygen Flow Rate Fraction of Inspired Oxygen 100 05/16/25 06:00 05/16/25 06:00 05/16/25 06:00 Temperature 36.7 C Pulse Rate 115 H 115 H 115 H Respiratory Rate 16 Blood Pressure 124/68 Pulse Oximetry 97 Oxygen Delivery Oxygen Flow Rate Fraction of Inspired Oxygen 05/16/25 08:00 05/16/25 08:02 05/16/25 10:30 Temperature 36.5 C Pulse Rate 123 H 116 H Respiratory Rate 21 H Blood Pressure 128/90 105/87 Pulse Oximetry 95 97 Oxygen Delivery Nasal Cannula Oxygen Flow Rate 4 Fraction of Inspired Oxygen 05/16/25 10:45 Temperature Pulse Rate 115 H Respiratory Rate Blood Pressure 105/87 Pulse Oximetry Oxygen Delivery Oxygen Flow Rate Fraction of Inspired Oxygen Exam 2 Const: General: comfortable, no acute distress, alert and awake O rientation/consciousness: patient oriented x3 HENMT: Head: normal to inspection Eyes: General: appearance normal, both eyes and all related structures P upils: Equal, round and reactive pupils present Neck: Neck: normal visual inspection, supple and no JVD Carotids: normal carotid upstroke Resp: Effort & Inspection: normal respiratory effort Auscultation: rales Cardio: Rate: tachycardic Rhythm: abnormal rhythm irregularly irregular Heart sounds: S1 normal heart sound present, S2 normal heart sound present and Murmur heart sound present systolic GI: Auscultation: normal bowel sounds Skin: General skin exam: normal color Neuro: General: patient oriented x3 Cranial nerves: Yes Equal, round and reactive pupils present Extrem: General: normal to inspection Other: No edema Psych: Appearance: grossly normal Mental Status: mental status grossly normal Results Labs and Meds 05/16/25 04:10 05/16/25 04:10 Lab results: Cardiac Enzymes 05/15/25 05/15/25 05/16/25 Range/Units 19:30 22:08 04:10 AST 36 (14-36) U/L Troponin I < 0.012 0.012 0.014 (0.000-0.034) ng/mL Coagulation 05/15/25 05/16/25 Range/Units 19:30 04:10 PT 15.9 H (11.1-14.7) Seconds APTT 34.6 148.6 H (22.3-36.8) Seconds CBC 05/15/25 05/16/25 Range/Units 19:30 04:10 WBC 9.4 10.5 H (4.5-10.0) K/mm3 RBC 4.34 4.10 L (4.2-5.4) M/mm3 Hgb 11.6 L 11.1 L (12.0-15.0) g/dL Hct 35.2 L 35.2 L (37.0-47.0) % Plt Count 179 155 (150-375) k/mm3 Lymph # (Auto) 1.50 0.83 L (0.9-3.2) K/mm3 [place] # (Auto) 0.6 0.6 (0.1-0.6) K/mm3 Eos # (Auto) 0.1 0.0 (0-0.3) K/mm3 Baso # (Auto) 0.1 0.0 (0.0-0.1) K/mm3 Comprehensive Metabolic Panel 05/15/25 05/16/25 Range/Units 19:30 04:10 Sodium 137 136 L (137-145) mmol/L Potassium 4.5 4.6 (3.4-5.0) mmol/L Chloride 110 H 112 H (98-107) mmol/L Carbon Dioxide 12 L 9 L (22-30) mmol/L BUN 54 H D 54 H (7-17) mg/dL Creatinine 2.34 H 2.26 H (0.7-1.0) mg/dL Glucose 126 H 159 H (65-110) mg/dL Calcium 8.5 8.0 L (8.4-10.2) mg/dL AST 36 (14-36) U/L ALT 62 H (6-35) U/L Alkaline Phosphatase 160 H (38-126) U/L Total Protein 7.2 (6.3-8.2) g/dL Albumin 4.1 (3.5-5.1) g/dL Intake and Output 05/15/25 05/16/25 05/16/25 23:59 07:59 15:59 Intake Total 105.1 2505.5 503.8 Balance 105.1 2505.5 503.8 Intake: IV 105.1 2505.5 23.8 Sodium Chloride 0.9% IV 1,000 1000 ml @ 0 mls/hr .ROUTE .[facility] Rx#:[id number] Heparin Sod/D5w 100 Units/ml 25 99.7 ,000 units In 250 ml @ 1,300 UNITS/HR 13 mls/hr IV CONT . [id number] [facility] Rx#:[id number] Sodium Chloride 0.9% IV 1,000 1000 ml @ 999 mls/hr IV CONT .Q1H1M [facility] Rx#:[id number] dilTIAZem 100 MG/100 ML 100 mg 5.1 55.8 23.8 In 100 ml @ 0 MG/HR IV CONT . Q0M [facility] Rx#:[id number] Azithromycin IV 500 mg In 250 Sodium Chloride 0.9% IV 250 ml @ 250 mls/hr IVPB ONCE STA Rx#: [id number] Doxycycline IV 100 mg In Sodium 100 Chloride 0.9% IV 100 ml @ 100 mls/hr IVPB Q12H [facility] Rx#: [id number] Magnesium Sulf 2 gm/Water 50Ml 50 2 gm In 50 ml @ 25 mls/hr IVPB ONCE ONE Rx#:[id number] cefTRIAXone 1 gm In Sodium 50 Chloride 0.9% IV 50 ml @ 100 mls/hr IVPB ONCE STA Rx#: [id number] Oral 480 Other: # Unmeasured Voids 1 Patient Weight 05/16/25 23:59 Weight 96.3 kg
[2025-05-16] MEDS: METOPROLOL TARTRATE 25 MG TABLET PO ×2 (11:35→20:54)
[2025-05-16] MEDS: PREGABALIN (*CRX) 75 MG CAPSULE 150 MG PO (11:35)
[2025-05-16] MEDS: FUROSEMIDE INJ 40 MG/4 ML VIAL IV PUSH (12:00)
--- NOTE | 2025-05-16 12:46 | P.CONNP_ITS ---
Assessment and Plan Assessment and plan (1) Acute kidney injury: Code(s): N17.9 - Acute kidney failure, unspecified Status: Acute Assessment and Plan: * as noted by labs on admission (creatinine 2.34mg/dL) * suspect multifactorial etiology: * relative hypotension * Afib with RVR * CHF/cardiomyopathy * infection (pneumonia +/- UTI) * NSAID use * prerenal factors * other(?) * check urine studies, CPK, and renal ultrasound * optimize hemodynamics * follow trend of repeat labs and UOP (2) Stage 3b chronic kidney disease: Code(s): N18.32 - Chronic kidney disease, stage 3b Status: Chronic Assessment and Plan: * baseline creatinine runs ~ 1.3 - 1.7mg/dl for the last couple of years * presumably secondary to hypertension, vascular disease, and age-related change (3) Shortness of breath: Code(s): R06.02 - Shortness of breath Status: Acute Assessment and Plan: * suspect due to: * pneumonia * Afib with RVR * CHF/cardiomyopathy/plerual effusions * other(?) * continue ongoing interventions as outlined * follow respiratory status (4) New onset a-fib: Code(s): I48.91 - Unspecified atrial fibrillation Status: Acute Assessment and Plan: * new finding * Cardiology following * attempting rate control strategy * on anticoaguation with heparin gtt * noted plans for CYRUS + cardioversion * follow telemetry (5) Pneumonia: Code(s): J18.9 - Pneumonia, unspecified organism Status: Acute Assessment and Plan: * as suggested by admission CXR * supplemental oxygen * follow culutre data * on antibiotics (6) Essential (primary) hypertension: Code(s): I10 - Essential (primary) hypertension Status: Acute Assessment and Plan: * running on the soft side since admission * home BP medications on hold * rate control medications for #4 limited by this issue * follow trend of hemodynamics I will continue to follow the patient with you while she remains hospitalized and make further recommendations as deemed necessary. Thank you for allowing me to participate in the care of this patient. L History of Present Illness Reason for Consult Consult date: 05/16/25 Reason for consult: acute renal failure (on chronic kidney disease) Chief Complaint Chief complaint: New onset AFib History of Present Illness Narrative: The patient is a 79-year-old female with a past medical history as outlined below who presented to [facility] with complaints of shortness of breath. She reports that her shortness of breath seemed to have worsened in the last 24 hours prior to her presentation to the ER but has been going on for the last week if not longer. She had hoped to the shortness of breath would improve with supportive therapy but instead seems to have progressively worsened to the point where she is short of breath both at rest as well as with his [place] activities. Other associated symptoms include orthopnea as well as intermittent lower extremity swelling/edema and palpitations. She denies any history of fevers, chills, nausea, vomiting, dizziness, lightheadedness, or abdominal pain. given the progressive nature and worsening of her shortness of breath as mentioned above, she presented to the ER for further assessment. Workup and evaluation emergency room demonstrated the patient to be hemodynamically stable and afebrile but she was noted be quite tachycardic (heart rate was in the 130s). Routine blood test noted a white blood cell count of 9.4, hemoglobin 11.6, hematocrit 35.2, platelet count of 179, sodium 137, potassium 4.5, bicarb 12, BUN 54, creatinine 2.34, glucose 126, calcium 8.5, magnesium 1.1, ALT of 62, alkaline phosphatase 160, albumin 4.1, [place] [id number]. Her initial troponins were negative x2 and her urinalysis was significant for 2+ protein, 1+ leukocyte esterase, and trace ketones. Viral testing with regard to influenza, RSV, and COVID were negative and her chest x- ray was read as bilateral lower lobe infiltrates and pleural effusions. Her EKG demonstrated atrial fibrillation with RVR. Her lactic acid was noted be mildly elevated at 2.2. Given her constellation of symptoms, laboratory findings, and imaging studies, appropriate cultures were obtained and she was started on antibiotics for presumed pneumonia as well as a Cardizem and heparin drip for her AFib with RVR. IV magnesium was replaced and she was subsequently admitted to the hospital for further evaluation and therapy. Since her admission, she has been seen by Cardiology for further evaluation of her atrial fibrillation with RVR. despite the diltiazem drip, she still remained in atrial fibrillation with RVR and was clearly symptomatic with ongoing shortness of breath. further complicating matters is the fact that her echocardiogram done during this admission demonstrated severe LV systolic dysfunction/ cardiomyopathy with an ejection fraction of 25-30%. She was initiated on IV diuretic therapy given this finding as well as her clear evidence of volume overload by chest x-ray and exam. Given her symptomatic atrial fibrillation with RVR in association with her shortness of breath and relative hypotension, cardiologyhas recommended a CYRUS/cardioversion which is tentatively scheduled for tomorrow. Since her admission to the hospital, her renal function still remains above her baseline. Renal consultation was requested due to her acute kidney injury/acute renal failure on top of her baseline chronic kidney disease. Her baseline creatinine seems around 1.3 - 1.7 mg/dL in the last couple of years. The presumed etiology of her chronic kidney disease is hypertension, vascular disease, and age-related change. Given her newly diagnosed cardiomyopathy, she may also have an element of cardiorenal syndrome at this time although is very possible that her atrial fibrillation with RVR has also potentially resulted in her worsening/fluctuating renal function. This is further complicated by the fact that she has been receiving IV diuretics in attempt to optimize her volume status which also likely has resulted in some fluctuations in her kidney function. As far as the patient is aware, she has never seen a kidney doctor before with regard to her underlying renal insufficiency. Currently, at the time my evaluation, she does not appear to be any acute distress but still has some degree of shortness of breath. Review of Systems 2 Review of Systems: As per HPI. [facility] Past Medical History Medical History Neuropathy Chronic renal failure Hyperlipidemia Essential (primary) hypertension Irritable bowel syndrome GERD (gastroesophageal reflux disease) Arthritis Allergies Surgical History Surgical History Hx of LASIK History of cataract surgery Family History Family History Sibling Patient's sister is in good health FH: brain cancer Mother Patient's mother is Family history of liver disease Father Family history of malignant neoplasm Patient's father is Other Diabetes mellitus Social History Social History Social History: She is . She has 2 children a son and a daughter. She lives with her daughter. 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 status: Full code Smoking packs per day: 1 Smoking cigarettes per day: 20.0 Years smoked: 20 Smoking pack-years: 20.00 Smoking status: Former smoker Smoking end date: 11/29/94 Alcohol intake: never Substance use: never Substance use type: does not use Lack of Transportation: No Lack of Food: Never True Current Housing: I Have Housing Concerned About Future Housing: No Difficulty Paying Gas/Electric Bills: No Difficulty Paying for Meds: No Currently Unemployed: No Education: High School Diploma/GED Difficulty w/ Childcare or Family Care: No Living arrangements: with family Occupation/Education: retired Spiritual care concerns: No Meds Home Medications and Allergies Home Medications ?Medication ?Instructions ?Recorded ?Confirmed ?Type loratadine 10 mg tablet (Allergy 10 mg PO DAILY 05/16/25 History Relief (loratadine)) multivitamin 1 tablet PO DAILY 10/12/21 1 History tramadol 50 mg tablet 50 mg PO Q6H PRN pain #90 ta bs 02/18/23 05/16/25 Rx lidocaine 5 % topical ointment [address] N pain #50 01/03/24 05/16/25 Rx grams meloxicam 7.5 mg tablet 7.5 mg PO DAILY #30 tabs 07/2405/16/25 Rx meloxicam 15 mg tablet 15 mg PO DAILY #90 tabs 08/0205/16/25 Rx omeprazole 20 mg capsule,delayed See Rx Instructions . Route 11/16/24 05/16/25 Rx release .COMPLEX #90 caps amlodipine 5 mg tablet See Rx Instructions .Route 0 02/22/25 05/16/25 Rx .COMPLEX #90 tabs atenolol 100 mg tablet 100 mg PO DAILY #90 tabs 05/16/25 Rx atorvastatin 20 mg tablet See Rx Instructions .Route 0 02/22/25 05/16/25 Rx .COMPLEX #90 tabs diclofenac epolamine 1.3 % 1 patch topical Q12H PRN pa in, mild 05/16/25 05/16/25 History transdermal 12 hour patch pregabalin 75 mg capsule 150 mg PO .Q12HR 05/16/25 History Allergies Allergy/AdvReac Type Severity Reaction Status Date / Time Sulfa (Sulfonamide AdvReac Mild Anxiety Verified 05/16/25 04:13 Antibiotics) Vital Signs Vital Signs Temp Pulse Resp BP Pulse Ox O2 Del Method O2 Flow Rate 05/16/25 11:35 121 H 05/16/25 11:30 97.5 F L 124 H 16 102/61 95 05/16/25 10:45 115 H 105/87 05/16/25 10:35 116 H 20 85/60 L 96 05/16/25 10:30 105/87 05/16/25 10:30 116 H 105/87 05/16/25 10:00 116 H 05/16/25 08:30 116 H 05/16/25 08:02 97 Nasal Cannula 4 05/16/25 08:00 97.7 F 123 H 21 H 128/90 95 05/16/25 06:00 115 H 05/16/25 06:00 98.1 F 115 H 16 124/68 97 05/16/25 06:00 115 H 05/16/25 04:47 114 H 05/16/25 04:41 114 H 22 H 96 BiPAP 05/16/25 04:00 114 H 22 H 96 BiPAP 05/16/25 04:00 98.1 F 124 H 20 120/78 100 05/16/25 03:28 114 H 23 H 104/84 95 05/16/25 03:21 98 19 96 BiPAP 05/16/25 03:12 97 BiPAP 05/16/25 02:08 124 H 128/65 05/16/25 01:42 108 H 23 H 120/84 100 05/16/25 01:31 123 H 22 H 100 05/16/25 01:30 117 H 20 100 05/16/25 01:26 102 H 24 H 106/92 H 100 05/16/25 01:24 111 H 22 H 110/96 H 05/16/25 01:22 110 H 23 H 05/16/25 01:21 107 H 23 H 110/96 H 98 05/16/25 01:15 105 H 19 05/16/25 01:01 118 H 24 H 109/90 97 05/16/25 00:55 98 05/16/25 00:51 94 23 H 102/62 90 05/16/25 00:46 95 18 100/59 L 05/16/25 00:45 95 24 H 05/16/25 00:45 99 05/16/25 00:40 100 05/16/25 00:36 105 H 24 H 98/81 L 96 05/16/25 00:35 95 31 H 100 BiPAP 05/16/25 00:35 96 34 H 100 BiPAP 05/16/25 00:33 99 25 H 88/59 L 94 05/16/25 00:30 94 Nasal Cannula 2 05/16/25 00:30 86 21 H 88/59 L 92 05/16/25 00:27 94 27 H 91/34 L 94 05/16/25 00:26 102 H 91/34 L 05/16/25 00:22 92 70/57 L 05/16/25 00:16 109 H 24 H 70/57 L 05/16/25 00:15 91 24 H 05/16/25 00:15 97 05/16/25 00:14 118 H 19 81/66 L 05/16/25 00:13 114 H 23 H 98 05/16/25 00:12 79 24 H 90 05/16/25 00:02 96 27 H 05/15/25 23:54 103 H 24 H 143/105 H 05/15/25 23:45 93 27 H 05/15/25 23:31 95 22 H 124/107 H 91 05/15/25 23:30 101 H 28 H 82 L 05/15/25 23:21 94 17 116/87 05/15/25 23:15 90 21 H 05/15/25 23:00 88 21 H 05/15/25 22:48 100 25 H 101/72 05/15/25 22:45 96 24 H 05/15/25 22:35 94 Nasal Cannula 2 05/15/25 22:32 87 24 H 05/15/25 22:30 92 Room Air 05/15/25 22:16 100 24 H 104/78 90 05/15/25 22:01 105 H 24 H 103/73 94 05/15/25 21:47 95 26 H 105/66 92 05/15/25 21:45 99 26 H 05/15/25 21:37 93 21 H 100/77 93 05/15/25 21:34 94 25 H 100/77 91 05/15/25 21:30 95 22 H 05/15/25 21:15 102 H 24 H 05/15/25 21:00 115 H 19 95 05/15/25 20:46 111 H 25 H 93 05/15/25 20:45 110 H 24 H 121/95 H 94 05/15/25 20:45 132 H 111/81 05/15/25 20:31 104 H 26 H 111/81 05/15/25 20:30 127 H 25 H 95 05/15/25 20:26 115 H 25 H 106/81 95 05/15/25 20:16 115 H 25 H 106/81 95 05/15/25 20:15 114 H 22 H 91 05/15/25 20:01 122 H 20 109/66 95 05/15/25 20:00 111 H 21 H 98 05/15/25 19:49 114 H 22 H 119/97 H 95 05/15/25 19:49 118 H 24 H 119/97 H 93 05/15/25 19:47 122 H 20 94 05/15/25 19:45 129 H 20 05/15/25 19:44 134 H 110/95 H 05/15/25 19:35 134 H 22 H 110/95 H 95 Room Air 05/15/25 19:31 117 H 25 H 110/95 H 95 05/15/25 19:30 135 H 16 95 05/15/25 19:15 136 H 20 05/15/25 19:07 140 H 21 H 97 05/15/25 18:47 97.9 F 135 H 16 132/108 H 93 Room Air Exam 2 Narrative: GENERAL APPEARANCE: elderly but well developed well nourished female in no acute distress HEENT: normocephalic, atraumatic, normal conjunctiva and sclera, nares patient NECK: no lymphadenopathy, thyromegaly, or JVD MOUTH: normal lips, teeth, and gums CARDIOVASCULAR: tachycardic, IRRR, normal S1 and S2, no rub RESPIRATORY: clear anteriorly ABDOMEN: soft, nontender, nondistended, positive bowel sounds present EXTREMITIES: no evidence of cyanosis, clubbing, or edema NEUROLOGICAL: alert and oriented x 3; CN II - XII intact bilaterally; no focal deficits noted Results Lab Results 05/20/25 03:57 05/20/25 03:57 Lab results: Most recent lab results ABG pH 7.303 (7.350-7.450) L 05/16/25 01:51 ABG pCO2 24.7 mmHg (35.0-45.0) L 05/16/25 01:51 ABG pO2 94.4 mmHg (80.0-100.0) 05/16/25 01:51 ABG HCO3 12.0 mEq/l (22.0-26.0) L 05/16/25 01:51 ABG O2 Saturation 96.7 % (95.0-100.0) 05/16/25 01:51 Calcium 8.0 mg/dL (8.4-10.2) L 05/16/25 04:10 Magnesium 1.7 mg/dL (1.6-2.3) 05/16/25 04:10
[2025-05-16 13:03] LABS: Thyroid Stimulating Hormone 1.040 uIU/mL (0.465-4.680)
[2025-05-16 13:55] LABS: Partial Thromboplastin Time 137.1 Seconds (22.3-36.8)
[2025-05-16 15:05] LABS: Total Protein Urine Random 22 mg/dL; Ur Ttl Prot Creatinine Ratio 0.18 mg/mg (0-0.20)
[2025-05-16 15:10] LABS: Urea Random Urine 576 MG/DL
--- NOTE | 2025-05-16 15:35 | PM.IMPN ---
Progress Note: A&P Assessment and Plan (1) Pneumonia: Code(s): J18.9 - Pneumonia, unspecified organism Status: Acute Assessment and Plan: -the patient was started on a Zithromax and Rocephin. However her QTC is borderline I will change her to doxycycline instead. -pending blood and sputum cultures (2) New onset a-fib: Code(s): I48.91 - Unspecified atrial fibrillation Status: Acute Assessment and Plan: -cardiology has been consulted. -she was placed on a Cardizem drip and her routine blood pressure medications were placed on hold due to low blood pressure. Blood pressure 104/84 and 120/78. Her heart rate is in the low teens. -echo has been ordered. -Gael Vasc score four -has bled score is a 3. -heparin drip has been started as well. (3) Essential hypertension: Code(s): I10 - Essential (primary) hypertension Status: Acute Assessment and Plan: -home medications have been held at this time. Due to low blood pressure. -she is currently on a Cardizem drip. (4) Hyperlipidemia: Qualifiers: Hyperlipidemia type: mixed hyperlipidemia Qualified Code(s): E78.2 - Mixed hyperlipidemia Code(s): E78.5 - Hyperlipidemia, unspecified Status: Acute Assessment and Plan: -continue with atrial for statin and monitor liver enzymes (5) Acute kidney injury: Code(s): N17.9 - Acute kidney failure, unspecified Status: Acute Assessment and Plan: -she has acute on chronic renal failure. -renal ultrasound has been ordered. -nephrology has been consulted. -hold nephrotoxic medication. -her BUN is 54 and her baseline is somewhere between 19 and 26. Her creatinine is 2.34 today with a baseline of 1.3-1.5. (6) Hypomagnesemia: Code(s): E83.42 - Hypomagnesemia Status: Acute Assessment and Plan: -magnesium has been supplemented in the emergency room. Repeat this morning and replenish as necessary. Plan 79 y/o female present with shortness of breath and is found to have A. FIb with RVR and was started on diltiazem drip rate is trending down, the patient has new onset and economics instructor is recommending CYRUS/ cardioversion which is scheduled for tomorrow. chest x-ray also showed b/l infiltrates concerning for pneumonia, most likely CAP, patient is treated with ceftriaxone and doxycycline, patient clinical symptoms are improving, will monitor, her family is present and gave updates. Subjective Date/time seen: 05/16/25 15:35 Interval history: Shortness of breath H&P-Narrative: This is a 79-year-old female patient who has not been feeling well for the last week however shortness of breath gotten progressively worse over the last 24 hours. She denies any chest pain but is more short of breath with exertion. She denies any fever or chills. Her white count was elevated to be 10.5. H&H is 11.1 and 35.2. Arterial blood gases pH 7.303 pCO2 was 24.7 and bicarb 12. Patient was started on a BiPAP due to her shortness of breath. Chloride 110, carbon dioxide 12, anion gap 15, BUN 54, creatinine 2.34. Lactic initially was 2.2 and came down to 1.9. Troponin negative x2. BNP 42222. Magnesium was low at 1.1. Urine is cloudy with 2+ protein, 1+ leukocyte esterase, and trace ketones. Viral serology is negative. Chest x-ray was read as bilateral lower lobe infiltrate and pleural effusions are noted. Her EKG was read as atrial fibrillation with rapid ventricular response with a heart rate of 134. She was started on a Zithromax and Rocephin for the infiltrates. She was started on a Cardizem drip and heparin drip in the emergency room. She was given IV magnesium, given a neb treatment as well as IV fluids. The patient is being admitted to IMU observation on the date of service of 05/16/2024. 79 y/o female present with shortness of breath and is found to have A. FIb with RVR and was started on diltiazem drip rate is trending down, the patient has new onset and economics instructor is recommending CYRUS/ cardioversion which is scheduled for tomorrow. chest x-ray also showed b/l infiltrates concerning for pneumonia, most likely CAP, patient is treated with ceftriaxone and doxycycline, patient clinicl symptoms are improving, will monitor, her family is present and gave updates. Exam Narrative: Patient is comfortable, NAD HEENT: eyes are clear and none icteric LUNGS:CTA HEART: RR S1S2 ABD: BS+, Soft and nontender Lower extremities: no edema SKIN: nonjaundiced Neuro: grossly intact. Objective Data Vital Signs Vital Signs: Vital Signs - 24 hr 05/15/25 18:47 05/15/25 19:07 05/15/25 19:15 Temperature 36.6 C Pulse Rate 135 H 140 H 136 H Respiratory Rate 16 21 H 20 Blood Pressure 132/108 H Pulse Oximetry 93 97 Oxygen Delivery Room Air Oxygen Flow Rate Fraction of Inspired Oxygen 05/15/25 19:30 05/15/25 19:31 05/15/25 19:35 Temperature Pulse Rate 135 H 117 H 134 H Respiratory Rate 16 25 H 22 H Blood Pressure 110/95 H 110/95 H Pulse Oximetry 95 95 95 Oxygen Delivery Room Air Oxygen Flow Rate Fraction of Inspired Oxygen 05/15/25 19:44 05/15/25 19:45 05/15/25 19:47 Temperature Pulse Rate 134 H 129 H 122 H Respiratory Rate 20 20 Blood Pressure 110/95 H Pulse Oximetry 94 Oxygen Delivery Oxygen Flow Rate Fraction of Inspired Oxygen 05/15/25 19:49 05/15/25 19:49 05/15/25 20:00 Temperature Pulse Rate 118 H 114 H 111 H Respiratory Rate 24 H 22 H 21 H Blood Pressure 119/97 H 119/97 H Pulse Oximetry 93 95 98 Oxygen Delivery Oxygen Flow Rate Fraction of Inspired Oxygen 05/15/25 20:01 05/15/25 20:15 05/15/25 20:16 Temperature Pulse Rate 122 H 114 H 115 H Respiratory Rate 20 22 H 25 H Blood Pressure 109/66 106/81 Pulse Oximetry 95 91 95 Oxygen Delivery Oxygen Flow Rate Fraction of Inspired Oxygen 05/15/25 20:26 05/15/25 20:30 05/15/25 20:31 Temperature Pulse Rate 115 H 127 H 104 H Respiratory Rate 25 H 25 H 26 H Blood Pressure 106/81 111/81 Pulse Oximetry 95 95 Oxygen Delivery Oxygen Flow Rate Fraction of Inspired Oxygen 05/15/25 20:45 05/15/25 20:45 05/15/25 20:46 Temperature Pulse Rate 132 H 110 H 111 H Respiratory Rate 24 H 25 H Blood Pressure 111/81 121/95 H Pulse Oximetry 94 93 Oxygen Delivery Oxygen Flow Rate Fraction of Inspired Oxygen 05/15/25 21:00 05/15/25 21:15 05/15/25 21:30 Temperature Pulse Rate 115 H 102 H 95 Respiratory Rate 19 24 H 22 H Blood Pressure Pulse Oximetry 95 Oxygen Delivery Oxygen Flow Rate Fraction of Inspired Oxygen 05/15/25 21:34 05/15/25 21:37 05/15/25 21:45 Temperature Pulse Rate 94 93 99 Respiratory Rate 25 H 21 H 26 H Blood Pressure 100/77 100/77 Pulse Oximetry 91 93 Oxygen Delivery Oxygen Flow Rate Fraction of Inspired Oxygen 05/15/25 21:47 05/15/25 22:01 05/15/25 22:16 Temperature Pulse Rate 95 105 H 100 Respiratory Rate 26 H 24 H 24 H Blood Pressure 105/66 103/73 104/78 Pulse Oximetry 92 94 90 Oxygen Delivery Oxygen Flow Rate Fraction of Inspired Oxygen 05/15/25 22:30 05/15/25 22:32 05/15/25 22:35 Temperature Pulse Rate 87 Respiratory Rate 24 H Blood Pressure Pulse Oximetry 92 94 Oxygen Delivery Room Air Nasal Cannula Oxygen Flow Rate 2 Fraction of Inspired Oxygen 05/15/25 22:45 05/15/25 22:48 05/15/25 23:00 Temperature Pulse Rate 96 100 88 Respiratory Rate 24 H 25 H 21 H Blood Pressure 101/72 Pulse Oximetry Oxygen Delivery Oxygen Flow Rate Fraction of Inspired Oxygen 05/15/25 23:15 05/15/25 23:21 05/15/25 23:30 Temperature Pulse Rate 90 94 101 H Respiratory Rate 21 H 17 28 H Blood Pressure 116/87 Pulse Oximetry 82 L Oxygen Delivery Oxygen Flow Rate Fraction of Inspired Oxygen 05/15/25 23:31 05/15/25 23:45 05/15/25 23:54 Temperature Pulse Rate 95 93 103 H Respiratory Rate 22 H 27 H 24 H Blood Pressure 124/107 H 143/105 H Pulse Oximetry 91 Oxygen Delivery Oxygen Flow Rate Fraction of Inspired Oxygen 05/16/25 00:02 05/16/25 00:12 05/16/25 00:13 Temperature Pulse Rate 96 79 114 H Respiratory Rate 27 H 24 H 23 H Blood Pressure Pulse Oximetry 90 98 Oxygen Delivery Oxygen Flow Rate Fraction of Inspired Oxygen 05/16/25 00:14 05/16/25 00:15 05/16/25 00:15 Temperature Pulse Rate 118 H 97 91 Respiratory Rate 19 24 H Blood Pressure 81/66 L Pulse Oximetry Oxygen Delivery Oxygen Flow Rate Fraction of Inspired Oxygen 05/16/25 00:16 05/16/25 00:22 05/16/25 00:26 Temperature Pulse Rate 109 H 92 102 H Respiratory Rate 24 H Blood Pressure 70/57 L 70/57 L 91/34 L Pulse Oximetry Oxygen Delivery Oxygen Flow Rate Fraction of Inspired Oxygen 05/16/25 00:27 05/16/25 00:30 05/16/25 00:30 Temperature Pulse Rate 94 86 Respiratory Rate 27 H 21 H Blood Pressure 91/34 L 88/59 L Pulse Oximetry 94 92 94 Oxygen Delivery Nasal Cannula Oxygen Flow Rate 2 Fraction of Inspired Oxygen 05/16/25 00:33 05/16/25 00:35 05/16/25 00:35 Temperature Pulse Rate 99 96 95 Respiratory Rate 25 H 34 H 31 H Blood Pressure 88/59 L Pulse Oximetry 94 100 100 Oxygen Delivery BiPAP BiPAP Oxygen Flow Rate Fraction of Inspired Oxygen 100 05/16/25 00:36 05/16/25 00:40 05/16/25 00:45 Temperature Pulse Rate 105 H Respiratory Rate 24 H Blood Pressure 98/81 L Pulse Oximetry 96 100 99 Oxygen Delivery Oxygen Flow Rate Fraction of Inspired Oxygen 05/16/25 00:45 05/16/25 00:46 05/16/25 00:51 Temperature Pulse Rate 95 95 94 Respiratory Rate 24 H 18 23 H Blood Pressure 100/59 L 102/62 Pulse Oximetry 90 Oxygen Delivery Oxygen Flow Rate Fraction of Inspired Oxygen 05/16/25 00:55 05/16/25 01:01 05/16/25 01:15 Temperature Pulse Rate 118 H 105 H Respiratory Rate 24 H 19 Blood Pressure 109/90 Pulse Oximetry 98 97 Oxygen Delivery Oxygen Flow Rate Fraction of Inspired Oxygen 05/16/25 01:21 05/16/25 01:22 05/16/25 01:24 Temperature Pulse Rate 107 H 110 H 111 H Respiratory Rate 23 H 23 H 22 H Blood Pressure 110/96 H 110/96 H Pulse Oximetry 98 Oxygen Delivery Oxygen Flow Rate Fraction of Inspired Oxygen 05/16/25 01:26 05/16/25 01:30 05/16/25 01:31 Temperature Pulse Rate 102 H 117 H 123 H Respiratory Rate 24 H 20 22 H Blood Pressure 106/92 H Pulse Oximetry 100 100 100 Oxygen Delivery Oxygen Flow Rate Fraction of Inspired Oxygen 05/16/25 01:42 05/16/25 02:08 05/16/25 03:12 Temperature Pulse Rate 108 H 124 H Respiratory Rate 23 H Blood Pressure 120/84 128/65 Pulse Oximetry 100 97 Oxygen Delivery BiPAP Oxygen Flow Rate Fraction of Inspired Oxygen 05/16/25 03:21 05/16/25 03:28 05/16/25 04:00 Temperature 36.7 C Pulse Rate 98 114 H 124 H Respiratory Rate 19 23 H 20 Blood Pressure 104/84 120/78 Pulse Oximetry 96 95 100 Oxygen Delivery BiPAP Oxygen Flow Rate Fraction of Inspired Oxygen 05/16/25 04:00 05/16/25 04:41 05/16/25 04:47 Temperature Pulse Rate 114 H 114 H 114 H Respiratory Rate 22 H 22 H Blood Pressure Pulse Oximetry 96 96 Oxygen Delivery BiPAP BiPAP Oxygen Flow Rate Fraction of Inspired Oxygen 100 05/16/25 06:00 05/16/25 06:00 05/16/25 06:00 Temperature 36.7 C Pulse Rate 115 H 115 H 115 H Respiratory Rate 16 Blood Pressure 124/68 Pulse Oximetry 97 Oxygen Delivery Oxygen Flow Rate Fraction of Inspired Oxygen 05/16/25 08:00 05/16/25 08:02 05/16/25 08:30 Temperature 36.5 C Pulse Rate 123 H 116 H Respiratory Rate 21 H Blood Pressure 128/90 Pulse Oximetry 95 97 Oxygen Delivery Nasal Cannula Oxygen Flow Rate 4 Fraction of Inspired Oxygen 05/16/25 10:00 05/16/25 10:30 05/16/25 10:30 Temperature Pulse Rate 116 H 116 H Respiratory Rate Blood Pressure 105/87 105/87 Pulse Oximetry Oxygen Delivery Oxygen Flow Rate Fraction of Inspired Oxygen 05/16/25 10:35 05/16/25 10:45 05/16/25 11:30 Temperature 36.4 C L Pulse Rate 116 H 115 H 124 H Respiratory Rate 20 16 Blood Pressure 85/60 L 105/87 102/61 Pulse Oximetry 96 95 Oxygen Delivery Oxygen Flow Rate Fraction of Inspired Oxygen 05/16/25 11:35 05/16/25 12:20 05/16/25 13:33 Temperature Pulse Rate 121 H 121 H 130 H Respiratory Rate 24 H Blood Pressure 98/66 L Pulse Oximetry 93 Oxygen Delivery Oxygen Flow Rate Fraction of Inspired Oxygen Intake/Output Intake/Output: Intake & Output 05/13/25 05/14/25 05/15/25 05/16/25 23:59 23:59 23:59 23:59 Intake Total 105.1 3210.3 Balance 105.1 3210.3 Meds/Results Medications: Active Medications Generic Name Dose Route Start Last Admin Trade Name Sean PRN Reason Stop Dose Admin Atorvastatin Calcium 20 mg 05/16/25 09:00 05/16/25 08:49 Atorvastatin 20 Mg Tablet BY MOUTH 20 mg DAILY TAIWO Administration Heparin Sodium (Porcine) 6,000 units 05/15/25 20:39 Heparin Sodium 5,000 Units/Ml Vial IV PUSH PRN PRN aPTT less than 55 seconds Heparin Sodium (Porcine) 3,000 units 05/15/25 20:39 Heparin Sodium 5,000 Units/Ml Vial IV PUSH PRN PRN aPTT 55 - 70 seconds Heparin Sodium/Dextrose 25,000 units in 250 mls @ 9 mls/hr 05/15/25 20:40 05/16/25 15:20 Heparin Sodium/D5w 100 Units/Ml IV CONT 900 units/hr .Q24H TAIWO 9 mls/hr Protocol Titration 900 UNITS/HR Ceftriaxone Sodium 1 gm/ 50 mls @ 100 mls/hr 05/16/25 22:00 Sodium Chloride IVPB Q24H TAIWO Doxycycline Hyclate 100 mg/ 100 mls @ 100 mls/hr 05/16/25 05:00 05/16/25 06:57 Sodium Chloride IVPB 05/20/25 17:59 Infused Q12H [facility] Infusion Pantoprazole Sodium 40 mg 05/17/25 09:00 Pantoprazole 40 Mg Tablet PO QAM TAIWO Perflutren Lipid Microsphere 0 ml 05/16/25 04:35 Perflutren Lipid Microspheres 1.5 Ml Vial Diluted To 10 Ml Total Volume IV PUSH 05/19/25 04:35 ONCE PRN adequate visualization Protocol Pregabalin 150 mg 05/16/25 10:25 05/16/25 11:35 Pregabalin (*Crx) 75 Mg Capsule PO 150 mg Q12HR TAIWO Administration Radiology Results: ITS Impressions Chest X-Ray 05/15/25 19:36 IMPRESSION: Bilateral lower lobe infiltrate and pleural effusions are noted. Renal Ultrasound 05/16/25 11:23 IMPRESSION: 1. Increasing mild right renal atrophy. No hydronephrosis in either kidney. Venous Doppler Study 05/16/25 11:29 IMPRESSION: 1. No deep venous thrombosis in either lower limb. Labs Labs: Laboratory Results - last 24 hr 05/15/25 05/15/25 05/15/25 19:30 20:19 22:08 WBC 9.4 RBC 4.34 Hgb 11.6 L Hct 35.2 L MCV 81.1 MCH 26.7 MCHC 33.0 RDW 16.3 H Plt Count 179 MPV 10.9 H Immature Gran % (Auto) 0.4 Neut % (Auto) 74.8 H Lymph % (Auto) 15.9 L [place] % (Auto) 6.8 Eos % (Auto) 1.4 Baso % (Auto) 0.7 Lymph # (Auto) 1.50 [place] # (Auto) 0.6 Eos # (Auto) 0.1 Baso # (Auto) 0.1 Abs Immat Gran (auto) 0.04 H Absolute Neuts (auto) 7.1 H Absolute Nucleated RBC 0.000 Nucleated RBC % 0.0 PT 15.9 H INR 1.3 APTT 34.6 ABG pH ABG pCO2 ABG pO2 ABG PO2/FiO2 Ratio ABG HCO3 ABG O2 Saturation ABG O2 Content ABG Base Excess A-a Gradient Oxyhemoglobin Carboxyhemoglobin Methemoglobin Reduced Hemoglobin Total Hemoglobin FiO2 Sodium 137 Potassium 4.5 Chloride 110 H Carbon Dioxide 12 L Anion Gap 15 H BUN 54 H D Creatinine 2.34 H Estim Creat Clear Calc Not Reportable Estimated GFR 20 L Glucose 126 H Lactic Acid 2.2 H 1.9 Calcium 8.5 Magnesium 1.1 L Total Bilirubin 1.2 AST 36 ALT 62 H Alkaline Phosphatase 160 H Troponin I < 0.012 0.012 NT-Pro-B Natriuret Pep 64465 H Total Protein 7.2 Albumin 4.1 TSH Urine Color Dark yellow Urine Appearance Cloudy H Urine pH 5.0 Ur Specific [place] 1.024 Urine Protein 2+ H Urine Glucose (UA) Negative Urine Ketones Trace H Ur Blood (Man) Negative Urine Nitrate Negative Urine Bilirubin Negative Urine Urobilinogen 1.0 Add Ur Microanalysis Reviewed Leukocyte Esterase Rfl 1+ H Urine RBC 0-2 Urine WBC 6-10 H Ur Squamous Epith Cells Occasional Urine Bacteria None seen Urine Casts 11-20 Hyaline Casts 0-2 Urine Mucus Present U Random Total Protein Ur Random Sodium Ur Random Urea Urine Creatinine Protein/Creat Ratio 2 Influenza A (RT-PCR) Negative Influenza B (RT-PCR) Negative RSV (RT-PCR) Negative SARS-CoV-2 RNA (RT-PCR) Negative 05/16/25 05/16/25 05/16/25 01:51 04:10 13:26 WBC 10.5 H RBC 4.10 L Hgb 11.1 L Hct 35.2 L MCV 85.9 D MCH 27.1 MCHC 31.5 L RDW 16.5 H Plt Count 155 MPV 11.1 H Immature Gran % (Auto) 0.7 H Neut % (Auto) 85.3 H Lymph % (Auto) 7.9 L [place] % (Auto) 5.5 Eos % (Auto) 0.2 Baso % (Auto) 0.4 Lymph # (Auto) 0.83 L [place] # (Auto) 0.6 Eos # (Auto) 0.0 Baso # (Auto) 0.0 Abs Immat Gran (auto) 0.07 H Absolute Neuts (auto) 9.0 H Absolute Nucleated RBC 0.030 H Nucleated RBC % 0.3 H PT INR APTT 148.6 H 137.1 H ABG pH 7.303 L ABG pCO2 24.7 L ABG pO2 94.4 ABG PO2/FiO2 Ratio 2.36 ABG HCO3 12.0 L ABG O2 Saturation 96.7 ABG O2 Content 16.3 ABG Base Excess -12.7 A-a Gradient 162.4 Oxyhemoglobin 94.9 Carboxyhemoglobin 0.7 Methemoglobin 0.3 Reduced Hemoglobin 4.1 Total Hemoglobin 12.1 FiO2 40 Sodium 136 L Potassium 4.6 Chloride 112 H Carbon Dioxide 9 L Anion Gap 15 H BUN 54 H Creatinine 2.26 H Estim Creat Clear Calc 23 Estimated GFR 21 L Glucose 159 H Lactic Acid Calcium 8.0 L Magnesium 1.7 Total Bilirubin AST ALT Alkaline Phosphatase Troponin I 0.014 NT-Pro-B Natriuret Pep Total Protein Albumin TSH 1.040 Urine Color Urine Appearance Urine pH Ur Specific [place] Urine Protein Urine Glucose (UA) Urine Ketones Ur Blood (Man) Urine Nitrate Urine Bilirubin Urine Urobilinogen Add Ur Microanalysis Leukocyte Esterase Rfl Urine RBC Urine WBC Ur Squamous Epith Cells Urine Bacteria Urine Casts Hyaline Casts Urine Mucus U Random Total Protein Ur Random Sodium Ur Random Urea Urine Creatinine Protein/Creat Ratio 2 Influenza A (RT-PCR) Influenza B (RT-PCR) RSV (RT-PCR) SARS-CoV-2 RNA (RT-PCR) 05/16/25 05/16/25 14:37 14:37 WBC RBC Hgb Hct MCV MCH MCHC RDW Plt Count MPV Immature Gran % (Auto) Neut % (Auto) Lymph % (Auto) [place] % (Auto) Eos % (Auto) Baso % (Auto) Lymph # (Auto) [place] # (Auto) Eos # (Auto) Baso # (Auto) Abs Immat Gran (auto) Absolute Neuts (auto) Absolute Nucleated RBC Nucleated RBC % PT INR APTT ABG pH ABG pCO2 ABG pO2 ABG PO2/FiO2 Ratio ABG HCO3 ABG O2 Saturation ABG O2 Content ABG Base Excess A-a Gradient Oxyhemoglobin Carboxyhemoglobin Methemoglobin Reduced Hemoglobin Total Hemoglobin FiO2 Sodium Potassium Chloride Carbon Dioxide Anion Gap BUN Creatinine Estim Creat Clear Calc Estimated GFR Glucose Lactic Acid Calcium Magnesium Total Bilirubin AST ALT Alkaline Phosphatase Troponin I NT-Pro-B Natriuret Pep Total Protein Albumin TSH Urine Color Urine Appearance Urine pH Ur Specific [place] Urine Protein Urine Glucose (UA) Urine Ketones Ur Blood (Man) Urine Nitrate Urine Bilirubin Urine Urobilinogen Add Ur Microanalysis Leukocyte Esterase Rfl Urine RBC Urine WBC Ur Squamous Epith Cells Urine Bacteria Urine Casts Hyaline Casts Urine Mucus U Random Total Protein 22 Ur Random Sodium 48 Ur Random Urea 576 Urine Creatinine 119.1 118.1 Protein/Creat Ratio 2 0.18 Influenza A (RT-PCR) Influenza B (RT-PCR) RSV (RT-PCR) SARS-CoV-2 RNA (RT-PCR)
[2025-05-16 17:42] LABS: Urine Eos QC 2nd Tech Confirmed
--- NOTE | 2025-05-16 18:18 | PC.NURSE ---
moved to room 205-2 -via - closer to nurses station bed accompanied by staff- belongings with pt
[2025-05-16] MEDS: ALPRAZolam (*CRX) 0.5 MG TABLET PO (18:36)
[2025-05-16] MEDS: cefTRIAXone 1 GM in SODIUM CHLORIDE 0.9% IV 50 ML 100 ML IVPB (20:56)
[2025-05-16] MEDS: HEPARIN SOD/D5W 100 UNITS/ML 25,000 UNITS/250 ML BAG 9 UNITS IV CONT (21:09)
[2025-05-16 21:47] LABS: Partial Thromboplastin Time 71.1 Seconds (22.3-36.8)
[2025-05-17] VITALS (29 sets, daily range): BP systolic 100–124; BP diastolic 54–94; PULSE 67–143; RESP 11–26; TEMP 36.4–36.6; O2SAT 91–99
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
[2025-05-17] MEDS: DOXYCYCLINE IV 100 MG in SODIUM CHLORIDE 0.9% IV 100 ML IVPB ×2 (05:28→19:57)
[2025-05-17 06:10] LABS: Hematocrit 33.2 % (37.0-47.0); Hemoglobin 10.4 g/dL (12.0-15.0); Mean Corpuscular HGB Conc 31.3 g/dl (32-36); Mean Corpuscular Hemoglobin 26.5 pg (26-34); Mean Corpuscular Volume 84.5 fl (80-100); Platelet Count Result 143 k/mm3 (150-375); Red Blood Count 3.93 M/mm3 (4.2-5.4); White Blood Count 7.9 K/mm3 (4.5-10.0)
[2025-05-17 06:24] LABS: Anion Gap 10 mmol/L (4-12); Blood Urea Nitrogen 59 mg/dL (7-17); Calcium 8.6 mg/dL (8.4-10.2); Carbon Dioxide 17 mmol/L (22-30); Chloride 109 mmol/L (98-107); Creatine Kinase 110 U/L (30-135); Estimated CRCL calculation 21 ml/min; Estimated Glomerular Filt Rate 19; Glucose 107 mg/dL (65-110); Potassium 4.0 mmol/L (3.4-5.0); Sodium 136 mmol/L (137-145)
[2025-05-17 06:35] LABS: Magnesium 1.8 mg/dL (1.6-2.3)
[2025-05-17 06:39] LABS: Partial Thromboplastin Time 74.9 Seconds (22.3-36.8)
--- NOTE | 2025-05-17 07:29 | P.PNCA_ITS ---
Progress Note: A&P Assessment and Plan (1) New onset a-fib: Code(s): I48.91 - Unspecified atrial fibrillation Status: Acute Assessment and Plan: This is a new diagnosis. Chronicity is unknown. I discussed the diagnosis of atrial fibrillation including pathophysiology, management strategies including rate control versus rhythm control, and complications/risks of atrial fibrillation. She remains in atrial fibrillation with rapid ventricular response despite being on a diltiazem drip. For the short term, will plan for rate control strategy, but ultimately will recommend CYRUS/cardioversion tomorrow. * Remains in atrial fibrillation with RVR and is borderline hypotensive. Will proceed with CYRUS/DCCV today. * Monitor electrolytes. Replace potassium to goal of greater than 4.0, magnesium 2.0 * Discontinue heparin tonight and start apixaban 5 mg q.12 hours (2) Essential (primary) hypertension: Code(s): I10 - Essential (primary) hypertension Status: Acute Assessment and Plan: Borderline hypotensive currently (3) Hyperlipidemia: Qualifiers: Hyperlipidemia type: mixed hyperlipidemia Qualified Code(s): E78.2 - Mixed hyperlipidemia Code(s): E78.5 - Hyperlipidemia, unspecified Status: Acute Assessment and Plan: Continue statin (4) Breath shortness: Code(s): R06.02 - Shortness of breath Status: Acute Assessment and Plan: Secondary to pneumonia and CHF. * Will give furosemide 40 mg IV push now * Supplemental oxygen is needed (5) Pneumonia: Code(s): J18.9 - Pneumonia, unspecified organism Status: Acute Assessment and Plan: On antibiotics and supplemental oxygen. Management per hospitalist. (6) Cardiomyopathy: Code(s): I42.9 - Cardiomyopathy, unspecified Status: Acute Assessment and Plan: Severe LV systolic dysfunction with EF 25-30%. This is a new diagnosis. * Will shift metoprolol tartrate to succinate in light of her cardiomyopathy * Received 40 mg IV Lasix today. Monitor renal function and need for further diuresis. * Addition of other agents for guideline directed medical therapy as her renal function and blood pressure allows * Given her severe LV dysfunction, she would benefit from being in sinus rhythm. As above, plan for cardioversion this morning. * She will need an ischemic evaluation at some point * Life vest prior to discharge Subjective Date/time seen: 05/17/25 08:29 Interval history: Cardiology follow-up visit Date of service 05/17/2025: She has remained in atrial fibrillation with rapid ventricular response overnight. She complaint of chest pain which improved with sitting up in bed. Does not feel any palpitations. She is short of breath. Review of Systems Review of Systems: All systems reviewed & are unremarkable except as noted in HPI and below Exam Const: General: comfortable, no acute distress, alert and awake Orientation/consciousness: patient oriented x3 HENMT: Head: normal to inspection Eyes: General: appearance normal, both eyes and all related structures Pupils: Equal, round and reactive pupils present Neck: Neck: normal visual inspection, supple and no JVD Carotids: normal carotid upstroke Resp: Effort & Inspection: normal respiratory effort Auscultation: rales Cardio: Rate: tachycardic Rhythm: abnormal rhythm irregularly irregular Heart sounds: S1 normal heart sound present, S2 normal heart sound present and Murmur heart sound present systolic GI: Auscultation: normal bowel sounds Skin: General skin exam: normal color Neuro: General: patient oriented x3 Cranial nerves: Yes Equal, round and reactive pupils present Extrem: General: normal to inspection Other: No edema Psych: Appearance: grossly normal Mental Status: mental status grossly normal Objective Data Vital Signs Vital Signs: Vital Signs - 24 hr 05/16/25 08:00 05/16/25 08:02 05/16/25 08:30 Temperature 36.5 C Pulse Rate 123 H 133 H Respiratory Rate 21 H 24 H Blood Pressure 128/90 Pulse Oximetry 95 97 94 Oxygen Delivery Nasal Cannula Nasal Cannula Oxygen Flow Rate 4 3 05/16/25 08:30 05/16/25 10:00 05/16/25 10:30 Temperature Pulse Rate 116 H 116 H 116 H Respiratory Rate Blood Pressure 105/87 Pulse Oximetry Oxygen Delivery Oxygen Flow Rate 05/16/25 10:30 05/16/25 10:35 05/16/25 10:45 Temperature Pulse Rate 116 H 115 H Respiratory Rate 20 Blood Pressure 105/87 85/60 L 105/87 Pulse Oximetry 96 Oxygen Delivery Oxygen Flow Rate 05/16/25 11:30 05/16/25 11:35 05/16/25 12:20 Temperature 36.4 C L Pulse Rate 124 H 121 H 128 H Respiratory Rate 16 24 H Blood Pressure 102/61 Pulse Oximetry 95 95 Oxygen Delivery Nasal Cannula Oxygen Flow Rate 3 05/16/25 12:20 05/16/25 13:33 05/16/25 14:00 Temperature Pulse Rate 121 H 130 H 130 H Respiratory Rate 24 H Blood Pressure 98/66 L Pulse Oximetry 93 Oxygen Delivery Oxygen Flow Rate 05/16/25 16:00 05/16/25 16:00 05/16/25 16:00 Temperature 36.5 C Pulse Rate 131 H 128 H 135 H Respiratory Rate 24 H 24 H Blood Pressure 106/74 Pulse Oximetry 94 93 Oxygen Delivery Nasal Cannula Oxygen Flow Rate 3 05/16/25 18:00 05/16/25 20:00 05/16/25 20:00 Temperature 36.4 C L Pulse Rate 132 H 126 H Respiratory Rate 20 Blood Pressure 103/67 Pulse Oximetry 91 95 Oxygen Delivery Nasal Cannula Oxygen Flow Rate 3 05/16/25 20:00 05/16/25 20:36 05/16/25 20:54 Temperature Pulse Rate 136 H 113 H 117 H Respiratory Rate Blood Pressure Pulse Oximetry 93 Oxygen Delivery Nasal Cannula Oxygen Flow Rate 3 05/16/25 22:00 05/16/25 23:31 05/16/25 23:41 Temperature 36.4 C Pulse Rate 129 H 122 H Respiratory Rate 16 Blood Pressure 108/70 Pulse Oximetry 94 94 Oxygen Delivery Nasal Cannula Oxygen Flow Rate 3 05/17/25 00:00 05/17/25 02:00 05/17/25 03:25 Temperature Pulse Rate 137 H 127 H Respiratory Rate Blood Pressure Pulse Oximetry 95 Oxygen Delivery Nasal Cannula Oxygen Flow Rate 3 05/17/25 04:00 05/17/25 04:00 05/17/25 06:00 Temperature 36.5 C Pulse Rate 133 H 120 H 123 H Respiratory Rate 18 Blood Pressure 100/61 Pulse Oximetry 97 Oxygen Delivery Oxygen Flow Rate Intake/Output Intake/Output: Intake & Output 05/14/25 05/15/25 05/16/25 05/17/25 23:59 23:59 23:59 23:59 Intake Total 105.1 3719.7 380.6 Output Total 500 450 Balance 105.1 3219.7 -69.4 Meds/Results Medications: Active Medications Generic Name Dose Route Start Last Admin Trade Name Freq PRN Reason Stop Dose Admin Atorvastatin Calcium 20 mg 05/16/25 09:00 05/16/25 08:49 Atorvastatin 20 Mg Tablet BY MOUTH 20 mg DAILY TAIWO Administration Heparin Sodium (Porcine) 6,000 units 05/15/25 20:39 Heparin Sodium 5,000 Units/Ml Vial IV PUSH PRN PRN aPTT less than 55 seconds Heparin Sodium (Porcine) 3,000 units 05/15/25 20:39 Heparin Sodium 5,000 Units/Ml Vial IV PUSH PRN PRN aPTT 55 - 70 seconds Heparin Sodium/Dextrose 25,000 units in 250 mls @ 9 mls/hr 05/15/25 20:40 05/17/25 06:53 Heparin Sodium/D5w 100 Units/Ml IV CONT 900 units/hr .Q24H TAIWO 9 mls/hr Protocol Titration 900 UNITS/HR Ceftriaxone Sodium 1 gm/ 50 mls @ 100 mls/hr 05/16/25 22:00 05/16/25 22:57 Sodium Chloride IVPB Infused Q24H TAIWO Infusion Doxycycline Hyclate 100 mg/ 100 mls @ 100 mls/hr 05/16/25 05:00 05/17/25 06:53 Sodium Chloride IVPB 05/20/25 17:59 Infused Q12H TAIWO Infusion Metoprolol Tartrate 25 mg 05/16/25 21:00 05/16/25 20:54 Metoprolol Tartrate 25 Mg Tablet PO 25 mg Q12HR TAIWO Administration Pantoprazole Sodium 40 mg 05/17/25 09:00 Pantoprazole 40 Mg Tablet PO QAM [facility] Perflutren Lipid Microsphere 0 ml 05/16/25 04:35 Perflutren Lipid Microspheres 1.5 Ml Vial Diluted To 10 Ml Total Volume IV PUSH 05/19/25 04:35 ONCE PRN adequate visualization Protocol Pregabalin 150 mg 05/16/25 10:25 05/16/25 21:25 Pregabalin (*Crx) 75 Mg Capsule PO Not Given Q12HR [facility] Radiology Results: ITS Impressions Chest X-Ray 05/15/25 19:36 IMPRESSION: Bilateral lower lobe infiltrate and pleural effusions are noted. Renal Ultrasound 05/16/25 11:23 IMPRESSION: 1. Increasing mild right renal atrophy. No hydronephrosis in either kidney. Venous Doppler Study 05/16/25 11:29 IMPRESSION: 1. No deep venous thrombosis in either lower limb. Labs Labs: Laboratory Results - last 24 hr 05/16/25 05/16/25 05/16/25 04:10 13:26 14:21 WBC RBC Hgb Hct MCV MCH MCHC RDW Plt Count MPV APTT 137.1 H Sodium Potassium Chloride Carbon Dioxide Anion Gap BUN Creatinine Estim Creat Clear Calc Estimated GFR Glucose Calcium Magnesium Total Creatine Kinase TSH 1.040 Urine Eosinophils None seen U Random Total Protein Ur Random Sodium Ur Random Urea Urine Creatinine Protein/Creat Ratio 2 05/16/25 05/16/25 05/16/25 14:37 14:37 21:31 WBC RBC Hgb Hct MCV MCH MCHC RDW Plt Count MPV APTT 71.1 H Sodium Potassium Chloride Carbon Dioxide Anion Gap BUN Creatinine Estim Creat Clear Calc Estimated GFR Glucose Calcium Magnesium Total Creatine Kinase TSH Urine Eosinophils U Random Total Protein 22 Ur Random Sodium 48 Ur Random Urea 576 Urine Creatinine 119.1 118.1 Protein/Creat Ratio 2 0.18 05/17/25 05:23 WBC 7.9 RBC 3.93 L Hgb 10.4 L Hct 33.2 L MCV 84.5 MCH 26.5 MCHC 31.3 L RDW 16.9 H Plt Count 143 L MPV 11.2 H APTT 74.9 H Sodium 136 L Potassium 4.0 Chloride 109 H Carbon Dioxide 17 L Anion Gap 10 BUN 59 H Creatinine 2.49 H Estim Creat Clear Calc 21 Estimated GFR 19 L Glucose 107 Calcium 8.6 Magnesium 1.8 Total Creatine Kinase 110 TSH Urine Eosinophils U Random Total Protein Ur Random Sodium Ur Random Urea Urine Creatinine Protein/Creat Ratio 2 Quality VTE Prophylaxis VTE prophylaxis: pharmacologic ordered
[2025-05-17] MEDS: METOPROLOL TARTRATE 25 MG TABLET PO ×2 (08:19→19:57)
[2025-05-17] MEDS: FUROSEMIDE INJ 40 MG/4 ML VIAL IV PUSH (09:05)
[2025-05-17] MEDS: LIDOCAINE 2% VISC SOLN 15 ML UDC (09:07)
--- NOTE | 2025-05-17 09:12 | WPDHPUPDATE1 ---
History and Physical Update Update Date/Time: 05/17/25 09:12 History and Physical has been reviewed, including an updated exam of the patient. There are NO changes in the patient's condition. Risks, benefits, and alternatives have been discussed and questions answered. Patient agrees to proceed with procedure.
--- NOTE | 2025-05-17 09:13 | WPDMODSED ---
Moderate Sedation Note-Pt Data Patient Data Allergies Allergy/AdvReac Type Severity Reaction Status Date / Time Sulfa (Sulfonamide AdvReac Mild Anxiety Verified 05/16/25 04:13 Antibiotics) Home Medications ?Medication ?Instructions ?Recorded ?Confirmed ?Type loratadine 10 mg tablet (Allergy 10 mg PO DAILY 10/12/21 05/16/25 History Relief (loratadine)) multivitamin 1 tablet PO DAILY 10/12/21 05/16/25 History tramadol 50 mg tablet 50 mg PO Q6H PRN pain #90 tabs 02/18/23 05/16/25 Rx lidocaine 5 % topical ointment 1 applic topical TID PRN pain #50 01/03/24 05/16/25 Rx grams meloxicam 7.5 mg tablet 7.5 mg PO DAILY #30 tabs 06/12/24 05/16/25 Rx meloxicam 15 mg tablet 15 mg PO DAILY #90 tabs 08/24/24 05/16/25 Rx omeprazole 20 mg capsule,delayed See Rx Instructions .Route 11/16/24 05/16/25 Rx release .COMPLEX #90 caps amlodipine 5 mg tablet See Rx Instructions .Route 02/22/25 05/16/25 Rx .COMPLEX #90 tabs atenolol 100 mg tablet 100 mg PO DAILY #90 tabs 02/22/25 05/16/25 Rx atorvastatin 20 mg tablet See Rx Instructions .Route 02/22/25 05/16/25 Rx .COMPLEX #90 tabs diclofenac epolamine 1.3 % 1 patch topical Q12H PRN pain, mild 05/16/25 05/16/25 History transdermal 12 hour patch pregabalin 75 mg capsule 150 mg PO .Q12HR 05/16/25 05/16/25 History Current Medications: Active Medications Atorvastatin Calcium (Atorvastatin 20 Mg Tablet) 20 mg BY MOUTH DAILY TAIWO Last Admin: 05/16/25 08:49 Dose: 20 mg Heparin Sodium (Porcine) (Heparin Sodium 5,000 Units/Ml Vial) 6,000 units IV PUSH PRN PRN PRN Reason: aPTT less than 55 seconds Heparin Sodium (Porcine) (Heparin Sodium 5,000 Units/Ml Vial) 3,000 units IV PUSH PRN PRN PRN Reason: aPTT 55 - 70 seconds Heparin Sodium/Dextrose (Heparin Sodium/D5w 100 Units/Ml) 25,000 units in 250 mls @ 9 mls/hr IV CONT .Q24H TAIWO; Protocol Last Titration: 05/17/25 06:53 Dose: 900 units/hr, 9 mls/hr Ceftriaxone Sodium 1 gm/ (Sodium Chloride) 50 mls @ 100 mls/hr IVPB Q24H TAIWO Last Infusion: 05/16/25 22:57 Dose: Infused Doxycycline Hyclate 100 mg/ (Sodium Chloride) 100 mls @ 100 mls/hr IVPB Q12H TAIWO Stop: 05/20/25 17:59 Last Infusion: 05/17/25 06:53 Dose: Infused Metoprolol Tartrate (Metoprolol Tartrate 25 Mg Tablet) 25 mg PO Q12HR TAIWO Last Admin: 05/17/25 08:19 Dose: 25 mg Pantoprazole Sodium (Pantoprazole 40 Mg Tablet) 40 mg PO QAM TAIWO Perflutren Lipid Microsphere (Perflutren Lipid Microspheres 1.5 Ml Vial Diluted To 10 Ml Total Volume) 0 ml IV PUSH ONCE PRN; Protocol PRN Reason: adequate visualization Stop: 05/19/25 04:35 Pregabalin (Pregabalin (*Crx) 75 Mg Capsule) 150 mg PO Q12HR TAIWO Last Admin: 05/16/25 21:25 Dose: Not Given Sedation/Anesthesia: No previous sedation/anesthesia problems (including family history). [facility] Past Medical History Medical History Neuropathy Chronic renal failure Hyperlipidemia Essential (primary) hypertension Irritable bowel syndrome GERD (gastroesophageal reflux disease) Arthritis Allergies Surgical History Surgical History Hx of LASIK History of cataract surgery Family History Family History Sibling Patient's sister is in good health FH: brain cancer Mother Patient's mother is Family history of liver disease Father Family history of malignant neoplasm Patient's father is Other Diabetes mellitus Social History Social History Social History: She is . She has 2 children a son and a daughter. She lives with her daughter. 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 status: Full code Smoking packs per day: 1 Smoking cigarettes per day: 20.0 Years smoked: 20 Smoking pack-years: 20.00 Smoking status: Former smoker Smoking end date: 11/29/94 Alcohol intake: never Substance use: never Substance use type: does not use Lack of Transportation: No Lack of Food: Never True Current Housing: I Have Housing Concerned About Future Housing: No Difficulty Paying Gas/Electric Bills: No Difficulty Paying for Meds: No Currently Unemployed: No Education: High School Diploma/GED Difficulty w/ Childcare or Family Care: No Living arrangements: with family Occupation/Education: retired Spiritual care concerns: No Mod Sed Physical Exam Physical Exam Pre Procedural Exam: Normal: Airway Hours since solid foods: 8 Hours since liquid intake: 8 Mallampati Classification: class II Internal Medicine - PN: Obj Da Vital Signs Vital Signs: Vital Signs - 24 hr 05/16/25 10:00 05/16/25 10:30 05/16/25 10:30 Temperature Pulse Rate 116 H 116 H Respiratory Rate Blood Pressure 105/87 105/87 Pulse Oximetry Oxygen Delivery Oxygen Flow Rate 05/16/25 10:35 05/16/25 10:45 05/16/25 11:30 Temperature 36.4 C L Pulse Rate 116 H 115 H 124 H Respiratory Rate 20 16 Blood Pressure 85/60 L 105/87 102/61 Pulse Oximetry 96 95 Oxygen Delivery Oxygen Flow Rate 05/16/25 11:35 05/16/25 12:20 05/16/25 12:20 Temperature Pulse Rate 121 H 128 H 121 H Respiratory Rate 24 H Blood Pressure Pulse Oximetry 95 Oxygen Delivery Nasal Cannula Oxygen Flow Rate 3 05/16/25 13:33 05/16/25 14:00 05/16/25 16:00 Temperature 36.5 C Pulse Rate 130 H 130 H 131 H Respiratory Rate 24 H 24 H Blood Pressure 98/66 L 106/74 Pulse Oximetry 93 94 Oxygen Delivery Oxygen Flow Rate 05/16/25 16:00 05/16/25 16:00 05/16/25 18:00 Temperature Pulse Rate 128 H 135 H 132 H Respiratory Rate 24 H Blood Pressure Pulse Oximetry 93 Oxygen Delivery Nasal Cannula Oxygen Flow Rate 3 05/16/25 20:00 05/16/25 20:00 05/16/25 20:00 Temperature 36.4 C L Pulse Rate 126 H 136 H Respiratory Rate 20 Blood Pressure 103/67 Pulse Oximetry 91 95 Oxygen Delivery Nasal Cannula Oxygen Flow Rate 3 05/16/25 20:36 05/16/25 20:54 05/16/25 22:00 Temperature Pulse Rate 113 H 117 H 129 H Respiratory Rate Blood Pressure Pulse Oximetry 93 Oxygen Delivery Nasal Cannula Oxygen Flow Rate 3 05/16/25 23:31 05/16/25 23:41 05/17/25 00:00 Temperature 36.4 C Pulse Rate 122 H 137 H Respiratory Rate 16 Blood Pressure 108/70 Pulse Oximetry 94 94 Oxygen Delivery Nasal Cannula Oxygen Flow Rate 3 05/17/25 02:00 05/17/25 03:25 05/17/25 04:00 Temperature 36.5 C Pulse Rate 127 H 133 H Respiratory Rate 18 Blood Pressure 100/61 Pulse Oximetry 95 97 Oxygen Delivery Nasal Cannula Oxygen Flow Rate 3 05/17/25 04:00 05/17/25 06:00 05/17/25 08:00 Temperature Pulse Rate 120 H 123 H 143 H Respiratory Rate 20 Blood Pressure Pulse Oximetry 97 Oxygen Delivery BiPAP Oxygen Flow Rate 05/17/25 08:19 Temperature Pulse Rate 130 H Respiratory Rate Blood Pressure Pulse Oximetry Oxygen Delivery Oxygen Flow Rate Intake/Output Intake/Output: Intake & Output 05/14/25 05/15/25 05/16/25 05/17/25 23:59 23:59 23:59 23:59 Intake Total 105.1 3719.7 380.6 Output Total 500 450 Balance 105.1 3219.7 -69.4 Meds/Results Medications: Active Medications Generic Name Dose Route Start Last Admin Trade Name Freq PRN Reason Stop Dose Admin Atorvastatin Calcium 20 mg 05/16/25 09:00 05/16/25 08:49 Atorvastatin 20 Mg Tablet BY MOUTH 20 mg DAILY TAIWO Administration Heparin Sodium (Porcine) 6,000 units 05/15/25 20:39 Heparin Sodium 5,000 Units/Ml Vial IV PUSH PRN PRN aPTT less than 55 seconds Heparin Sodium (Porcine) 3,000 units 05/15/25 20:39 Heparin Sodium 5,000 Units/Ml Vial IV PUSH PRN PRN aPTT 55 - 70 seconds Heparin Sodium/Dextrose 25,000 units in 250 mls @ 9 mls/hr 05/15/25 20:40 05/17/25 06:53 Heparin Sodium/D5w 100 Units/Ml IV CONT 900 units/hr .Q24H TAIWO 9 mls/hr Protocol Titration 900 UNITS/HR Ceftriaxone Sodium 1 gm/ 50 mls @ 100 mls/hr 05/16/25 22:00 05/16/25 22:57 Sodium Chloride IVPB Infused Q24H TAIWO Infusion Doxycycline Hyclate 100 mg/ 100 mls @ 100 mls/hr 05/16/25 05:00 05/17/25 06:53 Sodium Chloride IVPB 05/20/25 17:59 Infused Q12H TAIWO Infusion Metoprolol Tartrate 25 mg 05/16/25 21:00 05/17/25 08:19 Metoprolol Tartrate 25 Mg Tablet PO 25 mg Q12HR TAIWO Administration Pantoprazole Sodium 40 mg 05/17/25 09:00 Pantoprazole 40 Mg Tablet PO QAM COUNT INCLUDES [facility] Perflutren Lipid Microsphere 0 ml 05/16/25 04:35 Perflutren Lipid Microspheres 1.5 Ml Vial Diluted To 10 Ml Total Volume IV PUSH 05/19/25 04:35 ONCE PRN adequate visualization Protocol Pregabalin 150 mg 05/16/25 10:25 05/16/25 21:25 Pregabalin (*Crx) 75 Mg Capsule PO Not Given Q12HR COUNT INCLUDES THE [facility] Radiology Results: ITS Impressions Chest X-Ray 05/15/25 19:36 IMPRESSION: Bilateral lower lobe infiltrate and pleural effusions are noted. Renal Ultrasound 05/16/25 11:23 IMPRESSION: 1. Increasing mild right renal atrophy. No hydronephrosis in either kidney. Venous Doppler Study 05/16/25 11:29 IMPRESSION: 1. No deep venous thrombosis in either lower limb. Labs 05/17/25 05:23 05/17/25 05:23 Labs: Laboratory Results - last 24 hr 05/16/25 05/16/25 05/16/25 04:10 13:26 14:21 WBC RBC Hgb Hct MCV MCH MCHC RDW Plt Count MPV APTT 137.1 H Sodium Potassium Chloride Carbon Dioxide Anion Gap BUN Creatinine Estim Creat Clear Calc Estimated GFR Glucose POC Capillary Glucose Calcium Magnesium Total Creatine Kinase TSH 1.040 Urine Eosinophils None seen U Random Total Protein Ur Random Sodium Ur Random Urea Urine Creatinine Protein/Creat Ratio 2 05/16/25 05/16/25 05/16/25 14:37 14:37 21:31 WBC RBC Hgb Hct MCV MCH MCHC RDW Plt Count MPV APTT 71.1 H Sodium Potassium Chloride Carbon Dioxide Anion Gap BUN Creatinine Estim Creat Clear Calc Estimated GFR Glucose POC Capillary Glucose Calcium Magnesium Total Creatine Kinase TSH Urine Eosinophils U Random Total Protein 22 Ur Random Sodium 48 Ur Random Urea 576 Urine Creatinine 119.1 118.1 Protein/Creat Ratio 2 0.18 05/17/25 05/17/25 05:23 08:04 WBC 7.9 RBC 3.93 L Hgb 10.4 L Hct 33.2 L MCV 84.5 MCH 26.5 MCHC 31.3 L RDW 16.9 H Plt Count 143 L MPV 11.2 H APTT 74.9 H Sodium 136 L Potassium 4.0 Chloride 109 H Carbon Dioxide 17 L Anion Gap 10 BUN 59 H Creatinine 2.49 H Estim Creat Clear Calc 21 Estimated GFR 19 L Glucose 107 POC Capillary Glucose 102 Calcium 8.6 Magnesium 1.8 Total Creatine Kinase 110 TSH Urine Eosinophils U Random Total Protein Ur Random Sodium Ur Random Urea Urine Creatinine Protein/Creat Ratio 2 ASA Classification/Sedation ASA Classification/Sedation ASA Class: IV Emergent: No Risks: Risks, benefits and alternatives explained and patient/family accepted plan for sedation. Patient re-evaluated immediately prior to sedation.
--- NOTE | 2025-05-17 09:27 | P.CDI_ITS ---
CDI Query Clarification Request Please specify type and acuity of heart failure if known. * Acute * Chronic * Acute on Chronic * Unknown * Systolic * Diastolic * Combined Systolic and Diastolic * Unknown Hospitalist documented: Assessment and plan (1) Pneumonia: Code(s): J18.9 - Pneumonia, unspecified organism Status: Acute Assessment and Plan: -the patient was started on a Zithromax and Rocephin. However her QTC is borderline I will change her to doxycycline instead. -pending blood and sputum cultures (2) New onset a-fib: Code(s): I48.91 - Unspecified atrial fibrillation Status: Acute Assessment and Plan: -cardiology has been consulted. -she was placed on a Cardizem drip and her routine blood pressure medications were placed on hold due to low blood pressure. Blood pressure 104/84 and 120/78. Her heart rate is in the low teens. -echo has been ordered. -Gael Vasc score four -has bled score is a 3. -heparin drip has been started as well. (3) Essential hypertension: Code(s): I10 - Essential (primary) hypertension Status: Acute Assessment and Plan: -home medications have been held at this time. Due to low blood pressure. -she is currently on a Cardizem drip. (4) Hyperlipidemia: Qualifiers: Hyperlipidemia type: mixed hyperlipidemia Qualified Code(s): E78.2 - Mixed hyperlipidemia Code(s): E78.5 - Hyperlipidemia, unspecified Status: Acute Assessment and Plan: -continue with atrial for statin and monitor liver enzymes (5) Acute kidney injury: Code(s): N17.9 - Acute kidney failure, unspecified Status: Acute Assessment and Plan: -she has acute on chronic renal failure. -renal ultrasound has been ordered. -nephrology has been consulted. -hold nephrotoxic medication. -her BUN is 54 and her baseline is somewhere between 19 and 26. Her creatinine is 2.34 today with a baseline of 1.3-1.5. Cardiology documented: (4) Breath shortness: Code(s): R06.02 - Shortness of breath Status: Acute Assessment and Plan: Secondary to pneumonia and CHF. Will give 1 time dose of IV Lasix now. Awaiting echocardiogram. Further recommendations based on results of that study. (5) Pneumonia: Code(s): J18.9 - Pneumonia, unspecified organism Status: Acute Assessment and Plan: On antibiotics and supplemental oxygen. Management per hospitalist. IV lasix given BNP: 12,800 CXR: MPRESSION: Bilateral lower lobe infiltrate and pleural effusions are noted. <Juany Dhillon RN - Last Filed: 05/17/25 09:32> Provider Comments acute combined systolic diastolic heart failure <Zhen Del Cid MD - Last Filed: 05/19/25 09:02>
[2025-05-17] MEDS: MIDAZOLAM HCL (*CRX) 2 MG/2 ML VIAL IV PUSH (09:29)
[2025-05-17] MEDS: fentaNYL CITRATE INJ (*CRX) 100 MCG/2 ML VIAL 50 MCG IV PUSH (09:29)
--- NOTE | 2025-05-17 09:40 | P.PCNTEECA_ITS ---
OPAL with Cardioversion Date of procedure: 05/17/25 Procedure Type: OPAL guided DC cardioversion Diagnosis: AFib with RVR, CHF with reduced ejection fraction Indications: AFib with RVR, CHF with reduced ejection fraction Description of Procedure: DATE OF PROCEDURE: 05/17/2025 INDICATION FOR PROCEDURE: AFib with RVR, CHF with reduced ejection fraction PROCEDURES PERFORMED: 1. Transesophageal echocardiogram (OPAL) 2. Successful synchronized DC cardioversion with baptism of sinus rhythm 3. Moderate sedation -CPT 16466 SEDATION: Midazolam 2 mg, fentanyl 50 mcg; start time 0928 minutes, stop time 0939 minutes; total [id number] time 11 minutes; Tania Walker RN was trained observer for the moderate sedation. PROCEDURE: Informed consent was taken prior to the procedure. Patient received lidocaine gel and 2 sprays of benzocaine spray. After adequate sedation, opal probe was advanced without difficulty and multiplanar transesophageal echocardiographic was performed. Patient's vitals were monitored throughout the procedure. There were no immediate procedure related complications related to OPAL. Findings: Left ventricle: Moderate LV enlargement, normal wall thickness, severe global LV systolic dysfunction with a variable contractility due to atrial fibrillation; LVEF about 25-30%. Right ventricle: Mild enlargement with mild hypokinesis Left atrium: Moderate to severe enlargement. No evidence of left atrial appendage thrombus. Atrial septum: No shunt on color Doppler Right atrium: Mild enlargement Mitral valve: Normal structure, moderate mitral regurgitation. Aortic valve: Trileaflet, mildly sclerotic, no hemodynamically significant stenosis. Tricuspid valve: Normal structure, moderate TR. Pulmonic valve: Normal structure Pericardium: Trivial pericardial effusion Aorta: Normal aortic root size DC cardioversion: Transcutaneous pads were placed in the right parasternal and left paravertebral positions. After adequate conscious sedation and after left atrial appendage thrombus was ruled out on OPAL, synchronized DC cardioversion was performed with 200 joules x with baptism of sinus rhythm. Postprocedure EKG showed sinus rhythm with RBBB. No immediate procedure related complications. Conclusions: 1. Moderate LV enlargement, normal wall thickness, severe global LV systolic dysfunction, ejection fraction about 25-30%; variable contractility due to atrial fibrillation. 2. Mild RV enlargement with hypokinesis. 3. Moderate to severe left atrial enlargement. No evidence of left atrial appendage thrombus. 4. Moderate mitral regurgitation. 5. Mildly sclerotic aortic valve, trileaflet, no hemodynamically significant stenosis. 6. Moderate tricuspid regurgitation. 7. Successful synchronized DC cardioversion with baptism of sinus rhythm. RECOMMENDATIONS: May switch unfractionated heparin to direct oral an ticoagulant for chronic anticoagulation. Initiate amiodarone for rhythm control. Continue beta-celi with holding parameters. Continue to monitor for clinical improvement and any recurrence of arrhythmia. Ischemic evaluation when patient is stable.
--- NOTE | 2025-05-17 10:32 | P.PNNP_ITS ---
Progress Note: A&P Assessment and Plan (1) Acute kidney injury: Code(s): N17.9 - Acute kidney failure, unspecified Status: Acute Assessment and Plan: * as noted by labs on admission (creatinine 2.34mg/dL) * suspect multifactorial etiology: * relative hypotension * Afib with RVR * CHF/cardiomyopathy * infection (pneumonia +/- UTI) * NSAID use * prerenal factors * other(?) * evaluation to date: * renal u/s with no hydronephrosis * urine electrolytes prerenal (likely a manifestation of depressed EF) * urine eosinophil negative * CPK normal * no significant proteinuria * optimize hemodynamics * follow trend of repeat labs and UOP (2) Stage 3b chronic kidney disease: Code(s): N18.32 - Chronic kidney disease, stage 3b Status: Chronic Assessment and Plan: * baseline creatinine runs ~ 1.3 - 1.7mg/dl for the last couple of years * presumably secondary to hypertension, vascular disease, and age-related change (3) Shortness of breath: Code(s): R06.02 - Shortness of breath Status: Acute Assessment and Plan: * suspect due to: * pneumonia * Afib with RVR * CHF/cardiomyopathy/plerual effusions * other(?) * continue ongoing interventions as outlined * follow respiratory status (4) New onset a-fib: Code(s): I48.91 - Unspecified atrial fibrillation Status: Acute Assessment and Plan: * new finding * Cardiology following * attempting rate control strategy (but has not been successful) * on anticoaguation with heparin gtt * s/p CYRUS + cardioversion earlier today (on 05/17) * now in NSR * follow telemetry (5) Cardiomyopathy: Code(s): I42.9 - Cardiomyopathy, unspecified Status: Acute Assessment and Plan: * as noted by Echo (on 05/16): * left ventricular systolic function is severely globally reduced estimated at 25-30% * left ventricular diastolic function is abnormal * right ventricular systolic function is at least mildly reduced and with abnormal TAPSE 1.2 cm * moderate to severe mitral valve regurgitation * mild to moderate tricuspid valve regurgitation * mild pulmonary hypertension, estimated pulmonary arterial systolic pressure is 41 mmHg * trace pulmonic regurgitation. * Cardiology following * PRN IV diuretics to optimize volume status * GMDT as tolerated by hemodynamics and renal function (6) Pneumonia: Code(s): J18.9 - Pneumonia, unspecified organism Status: Acute Assessment and Plan: * as suggested by admission CXR * supplemental oxygen * follow culutre data * on antibiotics (7) Anemia: Code(s): D64.9 - Anemia, unspecified Status: Acute Assessment and Plan: * due to PETER, CKD, and acute illness * no need for KAYLYNN * follow trend of H/H (8) Essential (primary) hypertension: Code(s): I10 - Essential (primary) hypertension Status: Acute Assessment and Plan: * running on the soft side since admission * home BP medications on hold * follow trend of hemodynamics Will continue to follow. Subjective Date/time seen: 05/17/25 10:32 Interval history: Follow-up acute kidney injury/acute kidney failure on chronic kidney disease. Status post CYRUS with cardioversion and IV lasix earlier today; now in normal sinus rhythm; shortness of breath seems to be doing better on my visit; renal function/creatinine a bit worse by AM labs; no other acute complaints voiced when seen. Exam Narrative: General: elderly but WD/WN female in NAD Heart: normal S1 and S2; no rub Lungs: decreased at bases Abdomen: soft, nontender, nondistended, positive bowel sounds Extremities: no cyanosis or clubbing; no edema Skin: warm and dry Objective Data Vital Signs Vital Signs: Vital Signs - 24 hr 05/16/25 20:00 05/16/25 20:00 05/16/25 20:00 Temperature 97.5 F L Pulse Rate 126 H 136 H Respiratory Rate 20 Blood Pressure 103/67 Pulse Oximetry 91 95 Oxygen Delivery Nasal Cannula Oxygen Flow Rate 3 05/16/25 20:36 05/16/25 20:54 05/16/25 22:00 Temperature Pulse Rate 113 H 117 H 129 H Respiratory Rate Blood Pressure Pulse Oximetry 93 Oxygen Delivery Nasal Cannula Oxygen Flow Rate 3 05/16/25 23:31 05/16/25 23:41 05/17/25 00:00 Temperature 97.6 F Pulse Rate 122 H 137 H Respiratory Rate 16 Blood Pressure 108/70 Pulse Oximetry 94 94 Oxygen Delivery Nasal Cannula Oxygen Flow Rate 3 05/17/25 02:00 05/17/25 03:25 05/17/25 04:00 Temperature 97.7 F Pulse Rate 127 H 133 H Respiratory Rate 18 Blood Pressure 100/61 Pulse Oximetry 95 97 Oxygen Delivery Nasal Cannula Oxygen Flow Rate 3 05/17/25 04:00 05/17/25 06:00 05/17/25 08:00 Temperature Pulse Rate 120 H 123 H 143 H Respiratory Rate 20 Blood Pressure Pulse Oximetry 97 Oxygen Delivery BiPAP Oxygen Flow Rate 05/17/25 08:00 05/17/25 08:00 05/17/25 08:00 Temperature 97.7 F Pulse Rate 133 H 130 H Respiratory Rate 26 H Blood Pressure 122/90 Pulse Oximetry 94 95 Oxygen Delivery Nasal Cannula Oxygen Flow Rate 3 05/17/25 08:19 05/17/25 08:34 05/17/25 09:20 Temperature Pulse Rate 130 H 122 H Respiratory Rate 20 Blood Pressure 124/94 H Pulse Oximetry 95 95 Oxygen Delivery Nasal Cannula Oxygen Flow Rate 3 5 05/17/25 09:25 05/17/25 09:30 05/17/25 09:35 Temperature Pulse Rate 135 H 139 H 71 Respiratory Rate 18 16 12 Blood Pressure 110/70 109/89 108/74 Pulse Oximetry 95 93 99 Oxygen Delivery Nasal Cannula Nasal Cannula Nasal Cannula Oxygen Flow Rate 5 5 5 05/17/25 09:45 05/17/25 10:00 05/17/25 10:12 Temperature Pulse Rate 69 68 68 Respiratory Rate 11 L 12 Blood Pressure 102/68 106/70 115/72 Pulse Oximetry 94 94 Oxygen Delivery Nasal Cannula Nasal Cannula Oxygen Flow Rate 5 5 05/17/25 10:15 05/17/25 10:30 05/17/25 10:45 Temperature Pulse Rate 67 68 69 Respiratory Rate 14 15 17 Blood Pressure 115/72 109/71 115/69 Pulse Oximetry 93 93 93 Oxygen Delivery Nasal Cannula Nasal Cannula Nasal Cannula Oxygen Flow Rate 4 4 4 05/17/25 12:00 05/17/25 12:00 05/17/25 12:00 Temperature 97.8 F Pulse Rate 75 68 Respiratory Rate 20 Blood Pressure 110/69 Pulse Oximetry 93 95 Oxygen Delivery Nasal Cannula Oxygen Flow Rate 2 05/17/25 12:00 05/17/25 14:00 05/17/25 14:00 Temperature 97.6 F Pulse Rate 68 69 71 Respiratory Rate 25 H Blood Pressure 110/69 121/59 L Pulse Oximetry 94 Oxygen Delivery Oxygen Flow Rate 05/17/25 14:00 05/17/25 15:55 05/17/25 16:00 Temperature 97.7 F Pulse Rate 69 68 Respiratory Rate 23 H Blood Pressure 121/59 L 107/55 L Pulse Oximetry 91 95 Oxygen Delivery Nasal Cannula Oxygen Flow Rate 2 05/17/25 16:00 05/17/25 16:00 Temperature Pulse Rate 69 68 Respiratory Rate Blood Pressure 107/55 L Pulse Oximetry Oxygen Delivery Oxygen Flow Rate Intake/Output Intake/Output: Intake & Output 05/14/25 05/15/25 05/16/25 05/17/25 23:59 23:59 23:59 23:59 Intake Total 105.1 3719.7 924.9 Output Total 500 1500 Balance 105.1 3219.7 -575.1 Meds/Results Medications: Active Medications Generic Name Dose Route Start Last Admin Trade Name Freq PRN Reason Stop Dose Admin Apixaban 5 mg 05/17/25 21:00 Apixaban 5 Mg Tablet PO Q12HR [facility] Atorvastatin Calcium 20 mg 05/16/25 09:00 05/17/25 12:48 Atorvastatin 20 Mg Tablet BY MOUTH 20 mg DAILY [facility] Administration Heparin Sodium (Porcine) 6,000 units 05/15/25 20:39 Heparin Sodium 5,000 Units/Ml Vial IV PUSH 05/17/25 21:00 PRN PRN aPTT less than 55 seconds Heparin Sodium (Porcine) 3,000 units 05/15/25 20:39 Heparin Sodium 5,000 Units/Ml Vial IV PUSH 05/17/25 21:00 PRN PRN aPTT 55 - 70 seconds Heparin Sodium/Dextrose 25,000 units in 250 mls @ 9 mls/hr 05/15/25 20:40 05/17/25 06:53 Heparin Sodium/D5w 100 Units/Ml IV CONT 05/17/25 21:00 900 units/hr .Q24H TAIWO 9 mls/hr Protocol Titration 900 UNITS/HR Ceftriaxone Sodium 1 gm/ 50 mls @ 100 mls/hr 05/16/25 22:00 05/16/25 22:57 Sodium Chloride IVPB Infused Q24H [facility]WO Infusion Doxycycline Hyclate 100 mg/ 100 mls @ 100 mls/hr 05/16/25 05:00 05/17/25 06:53 Sodium Chloride IVPB 05/20/25 17:59 Infused Q12H [facility] Infusion Amiodarone HCl/Dextrose 360 mg in 200 mls @ 16.667 mls/hr 05/17/25 10:00 05/17/25 16:00 Nexterone 360 Mg/D5w 200 Ml IV CONT 0.5 mg/min .Q12H TAIWO 16.67 mls/hr 0.5 MG/MIN Infusion Metoprolol Tartrate 25 mg 05/16/25 21:00 05/17/25 08:19 Metoprolol Tartrate 25 Mg Tablet PO 25 mg Q12HR [facility] Administration Pantoprazole Sodium 40 mg 05/17/25 09:00 05/17/25 12:47 Pantoprazole 40 Mg Tablet PO 40 mg QAM [facility]AIWO Administration Perflutren Lipid Microsphere 0 ml 05/16/25 04:35 Perflutren Lipid Microspheres 1.5 Ml Vial Diluted To 10 Ml Total Volume IV PUSH 05/19/25 04:35 ONCE PRN adequate visualization Protocol Pregabalin 150 mg 05/16/25 10:25 05/17/25 12:47 Pregabalin (*Crx) 75 Mg Capsule PO 150 mg Q12HR [facility]WO Administration Radiology Results: ITS Impressions Chest X-Ray 05/15/25 19:36 IMPRESSION: Bilateral lower lobe infiltrate and pleural effusions are noted. Renal Ultrasound 05/16/25 11:23 IMPRESSION: 1. Increasing mild right renal atrophy. No hydronephrosis in either kidney. Venous Doppler Study 05/16/25 11:29 IMPRESSION: 1. No deep venous thrombosis in either lower limb. Labs Labs: Laboratory Results - last 24 hr 05/17/25 05:23 WBC 7.9 Hgb 10.4 L Hct 33.2 L Plt Count 143 L Sodium 136 L Potassium 4.0 Chloride 109 H Carbon Dioxide 17 L Anion Gap 10 BUN 59 H Creatinine 2.49 H Estim Creat Clear Calc 21 Estimated GFR 19 L Glucose 107 Calcium 8.6 Magnesium 1.8 Total Creatine Kinase 110
--- NOTE | 2025-05-17 10:52 | PM.IMPN ---
Progress Note: A&P Assessment and Plan (1) Pneumonia: Code(s): J18.9 - Pneumonia, unspecified organism Status: Acute (2) New onset a-fib: Code(s): I48.91 - Unspecified atrial fibrillation Status: Acute (3) Essential hypertension: Code(s): I10 - Essential (primary) hypertension Status: Acute (4) Hyperlipidemia: Qualifiers: Hyperlipidemia type: mixed hyperlipidemia Qualified Code(s): E78.2 - Mixed hyperlipidemia Code(s): E78.5 - Hyperlipidemia, unspecified Status: Acute (5) Acute kidney injury: Code(s): N17.9 - Acute kidney failure, unspecified Status: Acute (6) Hypomagnesemia: Code(s): E83.42 - Hypomagnesemia Status: Acute Plan This is a 79-year-old female patient who has not been feeling well for the last week however shortness of breath gotten progressively worse over the last 24 hours. She denies any chest pain but is more short of breath with exertion. She denies any fever or chills. Her white count was elevated to be 10.5. H&H is 11.1 and 35.2. Arterial blood gases pH 7.303 pCO2 was 24.7 and bicarb 12. Patient was started on a BiPAP due to her shortness of breath. Chloride 110, carbon dioxide 12, anion gap 15, BUN 54, creatinine 2.34. Lactic initially was 2.2 and came down to 1.9. Troponin negative x2. BNP 38488. Magnesium was low at 1.1. Urine is cloudy with 2+ protein, 1+ leukocyte esterase, and trace ketones. Viral serology is negative. Chest x-ray was read as bilateral lower lobe infiltrate and pleural effusions are noted. Her EKG was read as atrial fibrillation with rapid ventricular response with a heart rate of 134. She was started on a Zithromax and Rocephin for the infiltrates. She was started on a Cardizem drip and heparin drip in the emergency room. She was given IV magnesium, given a neb treatment as well as IV fluids. The patient is being admitted to IMU observation on the date of service of 05/16/2024. AFib with RVR cardiology consulted initially started on Cardizem drip. Which has been discontinued due to hypotension. Cardiology Recommended OPAL/cardioversion. New onset status post opal/cardioversion. On beta-celi. Now initiated amiodarone drip. Pneumonia treated with ceftriaxone and doxycycline. Chest x-ray with bilateral lower lobe infiltrate and pleural effusions hypoxic resp failure: on oxygen supp. bipap prn PETER with creatinine of 2.3 baseline creatinine 1.4. Admission creatinine of 2.3. Renal ultrasound negative for hydronephrosis. Likely cardiorenal syndrome will continue to monitor. Renal has been consulted. Newly diagnosed severe global LV systolic dysfunction ejection fraction 25-30% [id number] TR moderate to severe MR moderate to severe left atrial enlargement Metabolic acidosis improved venous duplex negative Hypertension Hyperlipidemia Lactic acidosis UTI mild WBC in urine 6-10. DVT prophylaxis heparin drip now switched to apixaban Code status full code Subjective Date/time seen: 05/17/25 10:52 Interval history: Chart reviewed. Underwent OPAL cardioversion this a.m.. Currently in sinus rhythm. Shortness of breath has improved. Still on oxygen. Review of Systems Review of Systems: All systems reviewed & are unremarkable except as noted in HPI and below Exam Narrative: Patient is comfortable, NAD HEENT: eyes are clear and none icteric LUNGS: Diminished breath sounds bilaterally mild end expiratory wheezes HEART: RR S1S2 ABD: BS+, Soft and nontender Lower extremities: no edema SKIN: nonjaundiced Neuro: grossly intact. Alert and oriented x3. Objective Data Vital Signs Vital Signs: Vital Signs - 24 hr 05/16/25 11:30 05/16/25 11:35 05/16/25 12:20 Temperature 97.5 F L Pulse Rate 124 H 121 H 128 H Respiratory Rate 16 24 H Blood Pressure 102/61 Pulse Oximetry 95 95 Oxygen Delivery Nasal Cannula Oxygen Flow Rate 3 05/16/25 12:20 05/16/25 13:33 05/16/25 14:00 Temperature Pulse Rate 121 H 130 H 130 H Respiratory Rate 24 H Blood Pressure 98/66 L Pulse Oximetry 93 Oxygen Delivery Oxygen Flow Rate 05/16/25 16:00 05/16/25 16:00 05/16/25 16:00 Temperature 97.7 F Pulse Rate 131 H 128 H 135 H Respiratory Rate 24 H 24 H Blood Pressure 106/74 Pulse Oximetry 94 93 Oxygen Delivery Nasal Cannula Oxygen Flow Rate 3 05/16/25 18:00 05/16/25 20:00 05/16/25 20:00 Temperature 97.5 F L Pulse Rate 132 H 126 H Respiratory Rate 20 Blood Pressure 103/67 Pulse Oximetry 91 95 Oxygen Delivery Nasal Cannula Oxygen Flow Rate 3 05/16/25 20:00 05/16/25 20:36 05/16/25 20:54 Temperature Pulse Rate 136 H 113 H 117 H Respiratory Rate Blood Pressure Pulse Oximetry 93 Oxygen Delivery Nasal Cannula Oxygen Flow Rate 3 05/16/25 22:00 05/16/25 23:31 05/16/25 23:41 Temperature 97.6 F Pulse Rate 129 H 122 H Respiratory Rate 16 Blood Pressure 108/70 Pulse Oximetry 94 94 Oxygen Delivery Nasal Cannula Oxygen Flow Rate 3 05/17/25 00:00 05/17/25 02:00 05/17/25 03:25 Temperature Pulse Rate 137 H 127 H Respiratory Rate Blood Pressure Pulse Oximetry 95 Oxygen Delivery Nasal Cannula Oxygen Flow Rate 3 05/17/25 04:00 05/17/25 04:00 05/17/25 06:00 Temperature 97.7 F Pulse Rate 133 H 120 H 123 H Respiratory Rate 18 Blood Pressure 100/61 Pulse Oximetry 97 Oxygen Delivery Oxygen Flow Rate 05/17/25 08:00 05/17/25 08:00 05/17/25 08:19 Temperature 97.7 F Pulse Rate 143 H 133 H 130 H Respiratory Rate 20 26 H Blood Pressure 122/90 Pulse Oximetry 97 94 Oxygen Delivery BiPAP Oxygen Flow Rate 05/17/25 09:20 05/17/25 09:25 05/17/25 09:30 Temperature Pulse Rate 122 H 135 H 139 H Respiratory Rate 20 18 16 Blood Pressure 124/94 H 110/70 109/89 Pulse Oximetry 95 95 93 Oxygen Delivery Nasal Cannula Nasal Cannula Nasal Cannula Oxygen Flow Rate 5 5 5 05/17/25 09:35 05/17/25 09:45 05/17/25 10:00 Temperature Pulse Rate 71 69 68 Respiratory Rate 12 11 L 12 Blood Pressure 108/74 102/68 106/70 Pulse Oximetry 99 94 94 Oxygen Delivery Nasal Cannula Nasal Cannula Nasal Cannula Oxygen Flow Rate 5 5 5 05/17/25 10:12 05/17/25 10:15 05/17/25 10:30 Temperature Pulse Rate 68 67 68 Respiratory Rate 14 15 Blood Pressure 115/72 115/72 109/71 Pulse Oximetry 93 93 Oxygen Delivery Nasal Cannula Nasal Cannula Oxygen Flow Rate 4 4 05/17/25 10:45 Temperature Pulse Rate 69 Respiratory Rate 17 Blood Pressure 115/69 Pulse Oximetry 93 Oxygen Delivery Nasal Cannula Oxygen Flow Rate 4 Intake/Output Intake/Output: Intake & Output 05/14/25 05/15/25 05/16/25 05/17/25 23:59 23:59 23:59 23:59 Intake Total 105.1 3719.7 380.6 Output Total 500 450 Balance 105.1 3219.7 -69.4 Meds/Results Medications: Active Medications Generic Name Dose Route Start Last Admin Trade Name Freq PRN Reason Stop Dose Admin Apixaban 5 mg 05/17/25 21:00 Apixaban 5 Mg Tablet PO Q12HR [facility]WO Atorvastatin Calcium 20 mg 05/16/25 09:00 05/16/25 08:49 Atorvastatin 20 Mg Tablet BY MOUTH 20 mg DAILY [facility] Administration Heparin Sodium (Porcine) 6,000 units 05/15/25 20:39 Heparin Sodium 5,000 Units/Ml Vial IV PUSH 05/17/25 21:00 PRN PRN aPTT less than 55 seconds Heparin Sodium (Porcine) 3,000 units 05/15/25 20:39 Heparin Sodium 5,000 Units/Ml Vial IV PUSH 05/17/25 21:00 PRN PRN aPTT 55 - 70 seconds Heparin Sodium/Dextrose 25,000 units in 250 mls @ 9 mls/hr 05/15/25 20:40 05/17/25 06:53 Heparin Sodium/D5w 100 Units/Ml IV CONT 05/17/25 21:00 900 units/hr .Q24H TAIWO 9 mls/hr Protocol Titration 900 UNITS/HR Ceftriaxone Sodium 1 gm/ 50 mls @ 100 mls/hr 05/16/25 22:00 05/16/25 22:57 Sodium Chloride IVPB Infused Q24H [facility] Infusion Doxycycline Hyclate 100 mg/ 100 mls @ 100 mls/hr 05/16/25 05:00 05/17/25 06:53 Sodium Chloride IVPB 05/20/25 17:59 Infused Q12H [facility]AIWO Infusion Amiodarone HCl/Dextrose 360 mg in 200 mls @ 16.667 mls/hr 05/17/25 10:00 05/17/25 10:12 Nexterone 360 Mg/D5w 200 Ml IV CONT 0.5 mg/min .Q12H TAIWO 16.67 mls/hr 0.5 MG/MIN Administration Metoprolol Tartrate 25 mg 05/16/25 21:00 05/17/25 08:19 Metoprolol Tartrate 25 Mg Tablet PO 25 mg Q12HR [facility]AIWO Administration Pantoprazole Sodium 40 mg 05/17/25 09:00 Pantoprazole 40 Mg Tablet PO QAM [facility] Perflutren Lipid Microsphere 0 ml 05/16/25 04:35 Perflutren Lipid Microspheres 1.5 Ml Vial Diluted To 10 Ml Total Volume IV PUSH 05/19/25 04:35 ONCE PRN adequate visualization Protocol Pregabalin 150 mg 05/16/25 10:25 05/16/25 21:25 Pregabalin (*Crx) 75 Mg Capsule PO Not Given Q12HR [facility] Radiology Results: ITS Impressions Chest X-Ray 05/15/25 19:36 IMPRESSION: Bilateral lower lobe infiltrate and pleural effusions are noted. Renal Ultrasound 05/16/25 11:23 IMPRESSION: 1. Increasing mild right renal atrophy. No hydronephrosis in either kidney. Venous Doppler Study 05/16/25 11:29 IMPRESSION: 1. No deep venous thrombosis in either lower limb. Labs Labs: Laboratory Results - last 24 hr 05/16/25 05/16/25 05/16/25 04:10 13:26 14:21 WBC RBC Hgb Hct MCV MCH MCHC RDW Plt Count MPV APTT 137.1 H Sodium Potassium Chloride Carbon Dioxide Anion Gap BUN Creatinine Estim Creat Clear Calc Estimated GFR Glucose POC Capillary Glucose Calcium Magnesium Total Creatine Kinase TSH 1.040 Urine Eosinophils None seen U Random Total Protein Ur Random Sodium Ur Random Urea Urine Creatinine Protein/Creat Ratio 2 05/16/25 05/16/25 05/16/25 14:37 14:37 21:31 WBC RBC Hgb Hct MCV MCH MCHC RDW Plt Count MPV APTT 71.1 H Sodium Potassium Chloride Carbon Dioxide Anion Gap BUN Creatinine Estim Creat Clear Calc Estimated GFR Glucose POC Capillary Glucose Calcium Magnesium Total Creatine Kinase TSH Urine Eosinophils U Random Total Protein 22 Ur Random Sodium 48 Ur Random Urea 576 Urine Creatinine 119.1 118.1 Protein/Creat Ratio 2 0.18 05/17/25 05/17/25 05:23 08:04 WBC 7.9 RBC 3.93 L Hgb 10.4 L Hct 33.2 L MCV 84.5 MCH 26.5 MCHC 31.3 L RDW 16.9 H Plt Count 143 L MPV 11.2 H APTT 74.9 H Sodium 136 L Potassium 4.0 Chloride 109 H Carbon Dioxide 17 L Anion Gap 10 BUN 59 H Creatinine 2.49 H Estim Creat Clear Calc 21 Estimated GFR 19 L Glucose 107 POC Capillary Glucose 102 Calcium 8.6 Magnesium 1.8 Total Creatine Kinase 110 TSH Urine Eosinophils U Random Total Protein Ur Random Sodium Ur Random Urea Urine Creatinine Protein/Creat Ratio 2
[2025-05-17] MEDS: PANTOPRAZOLE 40 MG TABLET PO (12:47)
[2025-05-17] MEDS: PREGABALIN (*CRX) 75 MG CAPSULE 150 MG PO (12:47)
[2025-05-17] MEDS: ATORVASTATIN 20 MG TABLET BY MOUTH (12:48)
--- NOTE | 2025-05-17 13:00 | ECG_ITS ---
Test Date: 2025-05-17 08:45:12 Measurements Intervals [place] Rate: 126 P: 0 TX: 0 QRS: 20 QRSD: 134 T: -20 QT: 332 QTc: 482 Interpretive Statements ATRIAL FIBRILLATION WITH RAPID VENTRICULAR RESPONSE RIGHT BUNDLE BRANCH BLOCK ABNORMAL ECG Compared to ECG 05/15/2025 23:09:00 HEART RATE HAS INCREASED Electronically Signed On 05-17-2025 10:05:37 CDT by Jorge Quevedo D.O.
--- NOTE | 2025-05-17 13:30 | ECG_ITS ---
Test Date: 2025-05-17 09:35:39 Measurements Intervals [place] Rate: 71 P: 32 NC: 147 QRS: 7 QRSD: 134 T: -4 QT: 403 QTc: 441 Interpretive Statements SINUS RHYTHM RIGHT BUNDLE BRANCH BLOCK BASELINE ARTIFACT- II, III, V6 ABNORMAL ECG Compared to ECG 05/17/2025 08:45:12 Atrial fibrillation no longer present Electronically Signed On 05-17-2025 10:06:21 CDT by Jorge Quevedo D.O.
[2025-05-17] MEDS: APIXABAN 5 MG TABLET PO (19:57)
[2025-05-17] MEDS: ACETAMINOPHEN 325 MG TABLET 650 MG PO (21:17)
[2025-05-17] MEDS: cefTRIAXone 1 GM in SODIUM CHLORIDE 0.9% IV 50 ML 100 ML IVPB (21:17)
[2025-05-18] VITALS (23 sets, daily range): BP systolic 95–133; BP diastolic 47–86; PULSE 60–88; RESP 17–20; TEMP 36.4–36.8; O2SAT 92–100
[2025-05-18 04:54] LABS: Hematocrit 30.8 % (37.0-47.0); Hemoglobin 9.9 g/dL (12.0-15.0); Mean Corpuscular HGB Conc 32.1 g/dl (32-36); Mean Corpuscular Hemoglobin 26.9 pg (26-34); Mean Corpuscular Volume 83.7 fl (80-100); Platelet Count Result 133 k/mm3 (150-375); Red Blood Count 3.68 M/mm3 (4.2-5.4); White Blood Count 6.8 K/mm3 (4.5-10.0)
[2025-05-18 05:18] LABS: Anion Gap 10 mmol/L (4-12); Blood Urea Nitrogen 57 mg/dL (7-17); Calcium 8.3 mg/dL (8.4-10.2); Carbon Dioxide 17 mmol/L (22-30); Chloride 109 mmol/L (98-107); Estimated CRCL calculation 22 ml/min; Estimated Glomerular Filt Rate 20; Glucose 99 mg/dL (65-110); Magnesium 1.6 mg/dL (1.6-2.3); Potassium 3.9 mmol/L (3.4-5.0); Sodium 136 mmol/L (137-145)
[2025-05-18] MEDS: DOXYCYCLINE IV 100 MG in SODIUM CHLORIDE 0.9% IV 100 ML IVPB ×2 (06:24→21:31)
[2025-05-18] MEDS: PANTOPRAZOLE 40 MG TABLET PO (09:10)
[2025-05-18] MEDS: METOPROLOL TARTRATE 25 MG TABLET PO ×2 (09:10→21:31)
[2025-05-18] MEDS: APIXABAN 5 MG TABLET PO (09:10)
[2025-05-18] MEDS: ATORVASTATIN 20 MG TABLET BY MOUTH (09:10)
[2025-05-18] MEDS: PREGABALIN (*CRX) 75 MG CAPSULE 150 MG PO ×2 (09:11→21:32)
--- NOTE | 2025-05-18 10:24 | P.PNCA_ITS ---
Progress Note: A&P Assessment and Plan (1) New onset a-fib: Code(s): I48.91 - Unspecified atrial fibrillation Status: Acute Assessment and Plan: Patient is status post CYRUS guided DC cardioversion with yazdanism to sinus rhythm. Procedure performed on 05/17/2025. On telemetry, she has remained in sinus rhythm. -continue IV amiodarone for now, can be switched to p.o. amiodarone tomorrow. -unfractionated heparin change to apixaban for anticoagulation. -continue low-dose metoprolol tartrate with holding parameters. Blood pressure is low normal. (2) Pneumonia: Code(s): J18.9 - Pneumonia, unspecified organism Status: Acute Assessment and Plan: On antibiotics and supplemental oxygen. Management per hospitalist. (3) Cardiomyopathy: Code(s): I42.9 - Cardiomyopathy, unspecified Status: Acute Assessment and Plan: Severe LV systolic dysfunction with EF 25-30%. New diagnosis. * Currently on low-dose metoprolol tartrate due to relatively low blood pressures. Can be switched to metoprolol succinate or carvedilol when blood pressure improves. * IV diuresis on hold due to worsening renal function. * Other guideline directed medical treatment for CHF with reduced ejection fraction when renal function improves. * Recommend Nephrology evaluation. * Ischemic evaluation when patient is clinically stable. Can be performed as an outpatient. * Life vest prior to discharge Subjective Date/time seen: 05/18/25 10:25 Interval history: Date of service: 05/18/2025 Interval history: Patient is sitting up in the chair at the time of evaluation. She reports modest improvement in dyspnea after restaurants sinus rhythm with DC cardioversion. Patient underwent CYRUS guided DC cardioversion yesterday. On telemetry, she has been in sinus rhythm. Exam Narrative: PHYSICAL EXAMINATION: GENERAL: Alert, sitting up in the chair; ill-appearing MENTAL STATUS: affect appropriate to mood EYES: Extraocular movements intact, no pallor EARS: External ears appear normal, hearing grossly normal NOSE: Normal and patent, no discharge MOUTH: Mucous membranes moist, tongue normal NECK: Supple, JVD CHEST: Scattered crackles HEART: Normal rate, regular rhythm at present ABDOMEN: Soft, nontender NEUROLOGICAL: Alert, oriented, normal speech MUSCULOSKELETAL: No major deformity, no amputation EXTREMITIES: Trace pedal edema, no clubbing, no cyanosis SKIN: no rash on the exposed area, no cyanosis PSYCHIATRIC: Normal mood, appropriate affect Objective Data Vital Signs Vital Signs: Vital Signs - 24 hr 05/17/25 10:30 05/17/25 10:45 05/17/25 12:00 Temperature Pulse Rate 68 69 75 Respiratory Rate 15 17 Blood Pressure 109/71 115/69 Pulse Oximetry 93 93 Oxygen Delivery Nasal Cannula Nasal Cannula Oxygen Flow Rate 4 4 Fraction of Inspired Oxygen 05/17/25 12:00 05/17/25 12:00 05/17/25 12:00 Temperature 36.6 C Pulse Rate 68 68 Respiratory Rate 20 Blood Pressure 110/69 110/69 Pulse Oximetry 93 95 Oxygen Delivery Nasal Cannula Oxygen Flow Rate 2 Fraction of Inspired Oxygen 05/17/25 14:00 05/17/25 14:00 05/17/25 14:00 Temperature 36.4 C Pulse Rate 69 71 69 Respiratory Rate 25 H Blood Pressure 121/59 L 121/59 L Pulse Oximetry 94 Oxygen Delivery Oxygen Flow Rate Fraction of Inspired Oxygen 05/17/25 15:55 05/17/25 16:00 05/17/25 16:00 Temperature 36.5 C Pulse Rate 68 69 Respiratory Rate 23 H Blood Pressure 107/55 L Pulse Oximetry 91 95 Oxygen Delivery Nasal Cannula Oxygen Flow Rate 2 Fraction of Inspired Oxygen 05/17/25 16:00 05/17/25 18:00 05/17/25 19:57 Temperature Pulse Rate 68 68 68 Respiratory Rate Blood Pressure 107/55 L 100/54 L Pulse Oximetry Oxygen Delivery Oxygen Flow Rate Fraction of Inspired Oxygen 05/17/25 20:00 05/17/25 20:00 05/17/25 20:00 Temperature 36.5 C Pulse Rate 71 71 Respiratory Rate 16 Blood Pressure 113/66 113/66 Pulse Oximetry 92 92 Oxygen Delivery Nasal Cannula Oxygen Flow Rate 2 Fraction of Inspired Oxygen 05/17/25 20:00 05/17/25 21:01 05/17/25 21:04 Temperature Pulse Rate 70 96 68 Respiratory Rate 20 Blood Pressure Pulse Oximetry 98 Oxygen Delivery BiPAP Oxygen Flow Rate Fraction of Inspired Oxygen 05/17/25 21:04 05/17/25 21:21 05/17/25 22:00 Temperature Pulse Rate 68 71 Respiratory Rate Blood Pressure 115/62 Pulse Oximetry 94 Oxygen Delivery BiPAP Oxygen Flow Rate Fraction of Inspired Oxygen 40 05/17/25 22:00 05/18/25 00:00 05/18/25 00:00 Temperature 36.6 C Pulse Rate 72 66 Respiratory Rate 17 Blood Pressure 109/56 L Pulse Oximetry 99 100 Oxygen Delivery BiPAP Oxygen Flow Rate Fraction of Inspired Oxygen 40 05/18/25 00:00 05/18/25 01:53 05/18/25 01:55 Temperature Pulse Rate 65 60 61 Respiratory Rate Blood Pressure 99/57 L Pulse Oximetry Oxygen Delivery Oxygen Flow Rate Fraction of Inspired Oxygen 05/18/25 03:33 05/18/25 04:00 05/18/25 04:00 Temperature 36.4 C L Pulse Rate 64 64 Respiratory Rate 18 Blood Pressure 102/57 L 102/57 L Pulse Oximetry 93 95 Oxygen Delivery Nasal Cannula Oxygen Flow Rate 2 Fraction of Inspired Oxygen 05/18/25 04:00 05/18/25 06:00 05/18/25 06:01 Temperature Pulse Rate 63 60 65 Respiratory Rate Blood Pressure 111/53 L Pulse Oximetry Oxygen Delivery Oxygen Flow Rate Fraction of Inspired Oxygen 05/18/25 08:00 05/18/25 08:07 05/18/25 08:46 Temperature 36.5 C Pulse Rate 64 64 Respiratory Rate 20 Blood Pressure 115/74 95/51 L 115/50 L Pulse Oximetry 94 Oxygen Delivery Oxygen Flow Rate Fraction of Inspired Oxygen 05/18/25 08:53 05/18/25 08:53 05/18/25 09:10 Temperature Pulse Rate 72 72 72 Respiratory Rate Blood Pressure 115/74 115/74 Pulse Oximetry Oxygen Delivery Oxygen Flow Rate Fraction of Inspired Oxygen Intake/Output Intake/Output: Intake & Output 05/15/25 05/16/25 05/17/25 05/18/25 23:59 23:59 23:59 23:59 Intake Total 105.1 3719.7 1336.4 381.4 Output Total 500 1500 450 Balance 105.1 3219.7 -163.6 -68.6 Meds/Results Medications: Active Medications Generic Name Dose Route Start Last Admin Trade Name Freq PRN Reason Stop Dose Admin Acetaminophen 650 mg 05/17/25 21:12 05/17/25 21:17 Acetaminophen 325 Mg Tablet PO 650 mg Q6H PRN Administration Mild Pain (1-3) or Fever Apixaban 5 mg 05/17/25 21:00 05/18/25 09:10 Apixaban 5 Mg Tablet PO 5 mg Q12HR TAIWO Administration Atorvastatin Calcium 20 mg 05/16/25 09:00 05/18/25 09:10 Atorvastatin 20 Mg Tablet BY MOUTH 20 mg DAILY TAIWO Administration Ceftriaxone Sodium 1 gm/ 50 mls @ 100 mls/hr 05/16/25 22:00 05/17/25 22:08 Sodium Chloride IVPB Infused Q24H TAIWO Infusion Doxycycline Hyclate 100 mg/ 100 mls @ 100 mls/hr 05/16/25 05:00 05/18/25 06:24 Sodium Chloride IVPB 05/20/25 17:59 100 mls/hr Q12H TAIWO Administration Amiodarone HCl/Dextrose 360 mg in 200 mls @ 16.667 mls/hr 05/17/25 10:00 05/18/25 08:53 Nexterone 360 Mg/D5w 200 Ml IV CONT 0.5 mg/min .Q12H TAIWO 16.67 mls/hr 0.5 MG/MIN Administration Metoprolol Tartrate 25 mg 05/16/25 21:00 05/18/25 09:10 Metoprolol Tartrate 25 Mg Tablet PO 25 mg Q12HR TAIWO Administration Pantoprazole Sodium 40 mg 05/17/25 09:00 05/18/25 09:10 Pantoprazole 40 Mg Tablet PO 40 mg QAM TAIWO Administration Perflutren Lipid Microsphere 0 ml 05/16/25 04:35 Perflutren Lipid Microspheres 1.5 Ml Vial Diluted To 10 Ml Total Volume IV PUSH 05/19/25 04:35 ONCE PRN adequate visualization Protocol Pregabalin 150 mg 05/18/25 09:10 05/18/25 09:11 Pregabalin (*Crx) 75 Mg Capsule PO 150 mg Q12HR TAIWO Administration Radiology Results: ITS Impressions Renal Ultrasound 05/16/25 11:23 IMPRESSION: 1. Increasing mild right renal atrophy. No hydronephrosis in either kidney. Venous Doppler Study 05/16/25 11:29 IMPRESSION: 1. No deep venous thrombosis in either lower limb. Chest X-Ray 05/18/25 09:37 IMPRESSION: 1. Mild interstitial edema with small pleural effusions. Labs Labs: Laboratory Results - last 24 hr 05/18/25 04:07 WBC 6.8 RBC 3.68 L Hgb 9.9 L Hct 30.8 L MCV 83.7 MCH 26.9 MCHC 32.1 RDW 17.2 H Plt Count 133 L MPV 10.9 H Sodium 136 L Potassium 3.9 Chloride 109 H Carbon Dioxide 17 L Anion Gap 10 BUN 57 H Creatinine 2.31 H Estim Creat Clear Calc 22 Estimated GFR 20 L Glucose 99 Calcium 8.3 L Magnesium 1.6
--- NOTE | 2025-05-18 11:45 | P.PNNP_ITS ---
Progress Note: A&P Assessment and Plan (1) Acute kidney injury: Code(s): N17.9 - Acute kidney failure, unspecified Status: Acute Assessment and Plan: * slowly improving * as noted by labs on admission (creatinine 2.34mg/dL) * suspect multifactorial etiology: * relative hypotension * Afib with RVR * CHF/cardiomyopathy * infection (pneumonia +/- UTI) * NSAID use * prerenal factors * other(?) * evaluation to date: * renal u/s with no hydronephrosis * urine electrolytes prerenal (likely a manifestation of depressed EF) * urine eosinophil negative * CPK normal * no significant proteinuria * optimize hemodynamics * follow trend of repeat labs and UOP (2) Stage 3b chronic kidney disease: Code(s): N18.32 - Chronic kidney disease, stage 3b Status: Chronic Assessment and Plan: * baseline creatinine runs ~ 1.3 - 1.7mg/dl for the last couple of years * presumably secondary to hypertension, vascular disease, and age-related change (3) Shortness of breath: Code(s): R06.02 - Shortness of breath Status: Acute Assessment and Plan: * suspect due to: * pneumonia * Afib with RVR * CHF/cardiomyopathy/plerual effusions * other(?) * continue ongoing interventions as outlined * follow respiratory status (4) New onset a-fib: Code(s): I48.91 - Unspecified atrial fibrillation Status: Acute Assessment and Plan: * new finding * Cardiology following * attempts at rate control strategy not very successful * on anticoagulation * s/p CYRUS + cardioversion earlier today (on 05/17) * now in NSR * on amiodarone and metoprolol * follow telemetry (5) Cardiomyopathy: Code(s): I42.9 - Cardiomyopathy, unspecified Status: Acute Assessment and Plan: * as noted by Echo (on 05/16): * left ventricular systolic function is severely globally reduced estimated at 25-30% * left ventricular diastolic function is abnormal * right ventricular systolic function is at least mildly reduced and with abnormal TAPSE 1.2 cm * moderate to severe mitral valve regurgitation * mild to moderate tricuspid valve regurgitation * mild pulmonary hypertension, estimated pulmonary arterial systolic pressure is 41 mmHg * trace pulmonic regurgitation. * Cardiology following * PRN IV diuretics to optimize volume status * GMDT as tolerated by hemodynamics and renal function (6) Pneumonia: Code(s): J18.9 - Pneumonia, unspecified organism Status: Acute Assessment and Plan: * as suggested by admission CXR * supplemental oxygen * follow culutre data * on antibiotics (7) Anemia: Code(s): D64.9 - Anemia, unspecified Status: Acute Assessment and Plan: * due to PETER, CKD, and acute illness * no need for KAYLYNN * follow trend of H/H (8) Essential (primary) hypertension: Code(s): I10 - Essential (primary) hypertension Status: Acute Assessment and Plan: * running on the soft side since admission * home BP medications on hold * follow trend of hemodynamics Will continue to follow. L Subjective Date/time seen: 05/18/25 11:45 Interval history: Follow-up acute kidney injury/acute kidney failure on chronic kidney disease. Renal function/creatinine as well as respiratory status/breathing seems to be doing better at the time of my visit; dosed with IV bumex today given CXR findings; remains in normal sinus rhythm following CYRUS/cardioversion yesterday; no apparent distress noted when seen. Exam 2 Narrative: General: elderly but WD/WN female in NAD Heart: normal S1 and S2; no rub Lungs: decreased at bases Abdomen: soft, nontender, nondistended, positive bowel sounds Extremities: no cyanosis or clubbing; no edema Skin: warm and intact Objective Data Vital Signs Vital Signs: Vital Signs Temp Pulse Resp BP Pulse Ox O2 Del Method O2 Flow Rate 05/18/25 11:00 98.3 F 74 20 112/55 L 95 05/18/25 09:10 72 05/18/25 08:53 72 115/74 05/18/25 08:53 72 115/74 05/18/25 08:07 97.7 F 64 20 95/51 L 94 05/18/25 08:05 115/50 L 05/18/25 08:00 70 05/18/25 08:00 94 Nasal Cannula 2 05/18/25 08:00 64 115/74 05/18/25 06:01 65 111/53 L 05/18/25 06:00 60 05/18/25 04:00 63 05/18/25 04:00 64 102/57 L 05/18/25 04:00 97.5 F L 64 18 102/57 L 95 05/18/25 03:33 93 Nasal Cannula 2 05/18/25 01:55 61 05/18/25 01:53 60 99/57 L 05/18/25 00:00 65 05/18/25 00:00 100 BiPAP 05/18/25 00:00 97.8 F 66 17 109/56 L 99 05/17/25 22:00 72 05/17/25 22:00 71 115/62 05/17/25 21:21 94 BiPAP 05/17/25 21:04 68 05/17/25 21:04 68 05/17/25 21:01 96 20 98 BiPAP 05/17/25 20:00 70 05/17/25 20:00 92 Nasal Cannula 2 05/17/25 20:00 71 113/66 05/17/25 20:00 97.7 F 71 16 113/66 92 05/17/25 19:57 68 Intake/Output Intake/Output: Intake & Output 05/15/25 05/16/25 05/17/25 05/18/25 23:59 23:59 23:59 23:59 Intake Total 105.1 3719.7 1336.4 1219.9 Output Total 500 1500 2250 Balance 105.1 3219.7 -163.6 -1030.1 Meds/Results Medications: Active Medications Generic Name Dose Route Start Last Admin Trade Name Freq PRN Reason Stop Dose Admin Acetaminophen 650 mg 05/17/25 21:12 05/17/25 21:17 Acetaminophen 325 Mg Tablet PO 650 mg Q6H PRN Administration Mild Pain (1-3) or Fever Apixaban 5 mg 05/17/25 21:00 05/18/25 09:10 Apixaban 5 Mg Tablet PO 5 mg Q12HR TAIWO Administration Atorvastatin Calcium 20 mg 05/16/25 09:00 05/18/25 09:10 Atorvastatin 20 Mg Tablet BY MOUTH 20 mg DAILY TAIWO Administration Ceftriaxone Sodium 1 gm/ 50 mls @ 100 mls/hr 05/16/25 22:00 05/17/25 22:08 Sodium Chloride IVPB Infused Q24H TAIWO Infusion Amiodarone HCl/Dextrose 360 mg in 200 mls @ 16.667 mls/hr 05/17/25 10:00 05/18/25 16:00 Nexterone 360 Mg/D5w 200 Ml IV CONT 0.5 mg/min .Q12H TAIWO 16.67 mls/hr 0.5 MG/MIN Infusion Doxycycline Hyclate 100 mg/ 100 mls @ 100 mls/hr 05/18/25 21:00 Sodium Chloride IVPB 05/20/25 21:59 Q12H TAIWO Metoprolol Tartrate 25 mg 05/16/25 21:00 05/18/25 09:10 Metoprolol Tartrate 25 Mg Tablet PO 25 mg Q12HR TAIWO Administration Pantoprazole Sodium 40 mg 05/17/25 09:00 05/18/25 09:10 Pantoprazole 40 Mg Tablet PO 40 mg QAM TAIWO Administration Perflutren Lipid Microsphere 0 ml 05/16/25 04:35 Perflutren Lipid Microspheres 1.5 Ml Vial Diluted To 10 Ml Total Volume IV PUSH 05/19/25 04:35 ONCE PRN adequate visualization Protocol Pregabalin 150 mg 05/18/25 09:10 05/18/25 09:11 Pregabalin (*Crx) 75 Mg Capsule PO 150 mg Q12HR TAIWO Administration Radiology Results: ITS Impressions Renal Ultrasound 05/16/25 11:23 IMPRESSION: 1. Increasing mild right renal atrophy. No hydronephrosis in either kidney. Venous Doppler Study 05/16/25 11:29 IMPRESSION: 1. No deep venous thrombosis in either lower limb. Chest X-Ray 05/18/25 09:37 IMPRESSION: 1. Mild interstitial edema with small pleural effusions. Labs Labs: Laboratory Tests 05/18/25 04:07 05/18/25 04:07 Calcium 8.3 L Magnesium 1.6 Microbiology 05/15/25 22:08 Blood Blood Culture - Preliminary 05/15/25 22:08 Blood Blood Culture - Preliminary 05/15/25 20:19 Unspecified Urine - Final
[2025-05-18] MEDS: BUMETANIDE INJ 1 MG/4 ML VIAL 1.5 MG IV PUSH (12:40)
--- NOTE | 2025-05-18 14:19 | P.PNIM_ITS ---
Progress Note: A&P Assessment and Plan (1) Pneumonia: Code(s): J18.9 - Pneumonia, unspecified organism Status: Acute (2) New onset a-fib: Code(s): I48.91 - Unspecified atrial fibrillation Status: Acute (3) Essential hypertension: Code(s): I10 - Essential (primary) hypertension Status: Acute (4) Hyperlipidemia: Qualifiers: Hyperlipidemia type: mixed hyperlipidemia Qualified Code(s): E78.2 - Mixed hyperlipidemia Code(s): E78.5 - Hyperlipidemia, unspecified Status: Acute (5) Acute kidney injury: Code(s): N17.9 - Acute kidney failure, unspecified Status: Acute (6) Hypomagnesemia: Code(s): E83.42 - Hypomagnesemia Status: Acute Plan This is a 79-year-old female patient who has not been feeling well for the last week however shortness of breath gotten progressively worse over the last 24 hours. She denies any chest pain but is more short of breath with exertion. She denies any fever or chills. Her white count was elevated to be 10.5. H&H is 11.1 and 35.2. Arterial blood gases pH 7.303 pCO2 was 24.7 and bicarb 12. Patient was started on a BiPAP due to her shortness of breath. Chloride 110, carbon dioxide 12, anion gap 15, BUN 54, creatinine 2.34. Lactic initially was 2.2 and came down to 1.9. Troponin negative x2. BNP 91496. Magnesium was low at 1.1. Urine is cloudy with 2+ protein, 1+ leukocyte esterase, and trace ketones. Viral serology is negative. Chest x-ray was read as bilateral lower lobe infiltrate and pleural effusions are noted. Her EKG was read as atrial fibrillation with rapid ventricular response with a heart rate of 134. She was started on a Zithromax and Rocephin for the infiltrates. She was started on a Cardizem drip and heparin drip in the emergency room. She was given IV magnesium, given a neb treatment as well as IV fluids. The patient is being admitted to IMU observation on the date of service of 05/16/2024. AFib with RVR cardiology consulted initially started on Cardizem drip. Which has been discontinued due to hypotension. Cardiology Recommended OPAL/cardioversion. New onset status post opal/cardioversion with successful conversion to sinus rhythm. On beta-celi. Now initiated amiodarone drip. Pneumonia treated with ceftriaxone and doxycycline. Chest x-ray with bilateral lower lobe infiltrate and pleural effusions hypoxic resp failure: on oxygen supp. bipap prn PEETR with creatinine of 2.3 baseline creatinine 1.4. Admission creatinine of 2.3. Renal ultrasound negative for hydronephrosis. Likely cardiorenal syndrome will continue to monitor. Renal has been consulted. Newly diagnosed severe global LV systolic dysfunction ejection fraction 25-30% [id number] TR moderate to severe MR moderate to severe left atrial enlargement. Ischemic evaluation when clinically stable. LifeVest at discharge. Intermittent diuresis per Nephrology Metabolic acidosis improved venous duplex negative Hypertension Hyperlipidemia Lactic acidosis UTI mild WBC in urine 6-10. DVT prophylaxis heparin drip now switched to apixaban Code status full code Subjective Date/time seen: 05/18/25 14:19 Interval history: No overnight events. She feels better. Remains in sinus rhythm. On IV a a miodarone. Review of Systems Review of Systems: All systems reviewed & are unremarkable except as noted in HPI and below Exam Narrative: Patient is comfortable, NAD HEENT: eyes are clear and none icteric LUNGS: Diminished breath sounds bilaterally mild end expiratory wheezes HEART: RR S1S2 ABD: BS+, Soft and nontender Lower extremities: no edema SKIN: nonjaundiced Neuro: grossly intact. Alert and oriented x3. Objective Data Vital Signs Vital Signs: Vital Signs - 24 hr 05/17/25 15:55 05/17/25 16:00 05/17/25 16:00 Temperature 97.7 F Pulse Rate 68 69 Respiratory Rate 23 H Blood Pressure 107/55 L Pulse Oximetry 91 95 Oxygen Delivery Nasal Cannula Oxygen Flow Rate 2 Fraction of Inspired Oxygen 05/17/25 16:00 05/17/25 18:00 05/17/25 19:57 Temperature Pulse Rate 68 68 68 Respiratory Rate Blood Pressure 107/55 L 100/54 L Pulse Oximetry Oxygen Delivery Oxygen Flow Rate Fraction of Inspired Oxygen 05/17/25 20:00 05/17/25 20:00 05/17/25 20:00 Temperature 97.7 F Pulse Rate 71 71 Respiratory Rate 16 Blood Pressure 113/66 113/66 Pulse Oximetry 92 92 Oxygen Delivery Nasal Cannula Oxygen Flow Rate 2 Fraction of Inspired Oxygen 05/17/25 20:00 05/17/25 21:01 05/17/25 21:04 Temperature Pulse Rate 70 96 68 Respiratory Rate 20 Blood Pressure Pulse Oximetry 98 Oxygen Delivery BiPAP Oxygen Flow Rate Fraction of Inspired Oxygen 05/17/25 21:04 05/17/25 21:21 05/17/25 22:00 Temperature Pulse Rate 68 71 Respiratory Rate Blood Pressure 115/62 Pulse Oximetry 94 Oxygen Delivery BiPAP Oxygen Flow Rate Fraction of Inspired Oxygen 40 05/17/25 22:00 05/18/25 00:00 05/18/25 00:00 Temperature 97.8 F Pulse Rate 72 66 Respiratory Rate 17 Blood Pressure 109/56 L Pulse Oximetry 99 100 Oxygen Delivery BiPAP Oxygen Flow Rate Fraction of Inspired Oxygen 40 05/18/25 00:00 05/18/25 01:53 05/18/25 01:55 Temperature Pulse Rate 65 60 61 Respiratory Rate Blood Pressure 99/57 L Pulse Oximetry Oxygen Delivery Oxygen Flow Rate Fraction of Inspired Oxygen 05/18/25 03:33 05/18/25 04:00 05/18/25 04:00 Temperature 97.5 F L Pulse Rate 64 64 Respiratory Rate 18 Blood Pressure 102/57 L 102/57 L Pulse Oximetry 93 95 Oxygen Delivery Nasal Cannula Oxygen Flow Rate 2 Fraction of Inspired Oxygen 05/18/25 04:00 05/18/25 06:00 05/18/25 06:01 Temperature Pulse Rate 63 60 65 Respiratory Rate Blood Pressure 111/53 L Pulse Oximetry Oxygen Delivery Oxygen Flow Rate Fraction of Inspired Oxygen 05/18/25 08:00 05/18/25 08:00 05/18/25 08:00 Temperature Pulse Rate 64 70 Respiratory Rate Blood Pressure 115/74 Pulse Oximetry 94 Oxygen Delivery Nasal Cannula Oxygen Flow Rate 2 Fraction of Inspired Oxygen 05/18/25 08:05 05/18/25 08:07 05/18/25 08:53 Temperature 97.7 F Pulse Rate 64 72 Respiratory Rate 20 Blood Pressure 115/50 L 95/51 L 115/74 Pulse Oximetry 94 Oxygen Delivery Oxygen Flow Rate Fraction of Inspired Oxygen 05/18/25 08:53 05/18/25 09:10 05/18/25 10:00 Temperature Pulse Rate 72 72 73 Respiratory Rate Blood Pressure 115/74 103/47 L Pulse Oximetry Oxygen Delivery Oxygen Flow Rate Fraction of Inspired Oxygen 05/18/25 10:00 05/18/25 10:00 05/18/25 12:00 Temperature 98.3 F Pulse Rate 73 73 74 Respiratory Rate 20 Blood Pressure 103/47 L 112/55 L Pulse Oximetry 95 Oxygen Delivery Oxygen Flow Rate Fraction of Inspired Oxygen 05/18/25 12:00 05/18/25 12:00 05/18/25 12:00 Temperature Pulse Rate 74 71 Respiratory Rate Blood Pressure 112/55 L Pulse Oximetry 95 Oxygen Delivery Nasal Cannula Oxygen Flow Rate 1 Fraction of Inspired Oxygen 05/18/25 14:00 05/18/25 14:00 Temperature 97.9 F Pulse Rate 83 74 Respiratory Rate 18 Blood Pressure 125/50 L Pulse Oximetry 95 Oxygen Delivery Oxygen Flow Rate Fraction of Inspired Oxygen Intake/Output Intake/Output: Intake & Output 05/15/25 05/16/25 05/17/25 05/18/25 23:59 23:59 23:59 23:59 Intake Total 105.1 3719.7 1336.4 913.3 Output Total 500 1500 450 Balance 105.1 3219.7 -163.6 463.3 Meds/Results Medications: Active Medications Generic Name Dose Route Start Last Admin Trade Name Freq PRN Reason Stop Dose Admin Acetaminophen 650 mg 05/17/25 21:12 05/17/25 21:17 Acetaminophen 325 Mg Tablet PO 650 mg Q6H PRN Administration Mild Pain (1-3) or Fever Apixaban 5 mg 05/17/25 21:00 05/18/25 09:10 Apixaban 5 Mg Tablet PO 5 mg Q12HR TAIWO Administration Atorvastatin Calcium 20 mg 05/16/25 09:00 05/18/25 09:10 Atorvastatin 20 Mg Tablet BY MOUTH 20 mg DAILY TAIWO Administration Ceftriaxone Sodium 1 gm/ 50 mls @ 100 mls/hr 05/16/25 22:00 05/17/25 22:08 Sodium Chloride IVPB Infused Q24H TAIWO Infusion Doxycycline Hyclate 100 mg/ 100 mls @ 100 mls/hr 05/16/25 05:00 05/18/25 06:24 Sodium Chloride IVPB 05/20/25 17:59 100 mls/hr Q12H TAIWO Administration Amiodarone HCl/Dextrose 360 mg in 200 mls @ 16.667 mls/hr 05/17/25 10:00 05/18/25 12:00 Nexterone 360 Mg/D5w 200 Ml IV CONT 0.5 mg/min .Q12H TAIWO 16.67 mls/hr 0.5 MG/MIN Infusion Metoprolol Tartrate 25 mg 05/16/25 21:00 05/18/25 09:10 Metoprolol Tartrate 25 Mg Tablet PO 25 mg Q12HR TAIWO Administration Pantoprazole Sodium 40 mg 05/17/25 09:00 05/18/25 09:10 Pantoprazole 40 Mg Tablet PO 40 mg QAM TAIWO Administration Perflutren Lipid Microsphere 0 ml 05/16/25 04:35 Perflutren Lipid Microspheres 1.5 Ml Vial Diluted To 10 Ml Total Volume IV PUSH 05/19/25 04:35 ONCE PRN adequate visualization Protocol Pregabalin 150 mg 05/18/25 09:10 05/18/25 09:11 Pregabalin (*Crx) 75 Mg Capsule PO 150 mg Q12HR TAIWO Administration Radiology Results: ITS Impressions Renal Ultrasound 05/16/25 11:23 IMPRESSION: 1. Increasing mild right renal atrophy. No hydronephrosis in either kidney. Venous Doppler Study 05/16/25 11:29 IMPRESSION: 1. No deep venous thrombosis in either lower limb. Chest X-Ray 05/18/25 09:37 IMPRESSION: 1. Mild interstitial edema with small pleural effusions. Labs Labs: Laboratory Results - last 24 hr 05/18/25 04:07 WBC 6.8 RBC 3.68 L Hgb 9.9 L Hct 30.8 L MCV 83.7 MCH 26.9 MCHC 32.1 RDW 17.2 H Plt Count 133 L MPV 10.9 H Sodium 136 L Potassium 3.9 Chloride 109 H Carbon Dioxide 17 L Anion Gap 10 BUN 57 H Creatinine 2.31 H Estim Creat Clear Calc 22 Estimated GFR 20 L Glucose 99 Calcium 8.3 L Magnesium 1.6
--- NOTE | 2025-05-18 17:26 | PC.NURSE ---
On 05/18/25, the student, [ Carly Jimenez], provided care and completed [facility] documentation on this patient. I have reviewed the student's documentation and agree with the findings.
[2025-05-18] MEDS: cefTRIAXone 1 GM in SODIUM CHLORIDE 0.9% IV 50 ML 100 ML IVPB (21:32)
[2025-05-19] VITALS (19 sets, daily range): BP systolic 108–152; BP diastolic 46–86; PULSE 68–95; RESP 14–20; TEMP 36.5–36.8; O2SAT 91–100
[2025-05-19 04:00] LABS: Hematocrit 32.3 % (37.0-47.0); Hemoglobin 10.4 g/dL (12.0-15.0); Immature Granulocyte Percent A 0.5 % (0-0.5); Lymphocytes Absolute Auto 1.19 K/mm3 (0.9-3.2); Mean Corpuscular HGB Conc 32.2 g/dl (32-36); Mean Corpuscular Hemoglobin 26.4 pg (26-34); Mean Corpuscular Volume 82.0 fl (80-100); Nucleated Red Blood Cells Absolute Auto 0.000 K/mm3 (0.0-0.012); Nucleated Red Blood Cells Perc 0.0 % (0.0-0.2); Platelet Count Result 139 k/mm3 (150-375); Red Blood Count 3.94 M/mm3 (4.2-5.4); White Blood Count 8.4 K/mm3 (4.5-10.0)
[2025-05-19 04:43] LABS: Alanine Aminotransferase 78 U/L (6-35); Albumin Level 3.5 g/dL (3.5-5.1); Alkaline Phosphatase 145 U/L (38-126); Anion Gap 10 mmol/L (4-12); Aspartate Amino Transferase 31 U/L (14-36); Bilirubin,Total 0.7 mg/dL (0.2-1.3); Blood Urea Nitrogen 47 mg/dL (7-17); Calcium 8.6 mg/dL (8.4-10.2); Carbon Dioxide 19 mmol/L (22-30); Chloride 109 mmol/L (98-107); Estimated CRCL calculation 26 ml/min; Estimated Glomerular Filt Rate 25; Glucose 101 mg/dL (65-110); Magnesium 1.4 mg/dL (1.6-2.3); Potassium 3.7 mmol/L (3.4-5.0); Sodium 138 mmol/L (137-145); Total Protein 6.2 g/dL (6.3-8.2)
[2025-05-19] MEDS: BUMETANIDE INJ 1 MG/4 ML VIAL 1.5 MG IV PUSH (09:01)
[2025-05-19] MEDS: DOXYCYCLINE IV 100 MG in SODIUM CHLORIDE 0.9% IV 100 ML IVPB ×2 (09:02→20:30)
[2025-05-19] MEDS: PREGABALIN (*CRX) 75 MG CAPSULE 150 MG PO ×2 (09:02→21:24)
[2025-05-19] MEDS: METOPROLOL TARTRATE 25 MG TABLET PO ×2 (09:03→20:19)
[2025-05-19] MEDS: PANTOPRAZOLE 40 MG TABLET PO (09:03)
[2025-05-19] MEDS: APIXABAN 5 MG TABLET PO ×2 (09:03→20:20)
[2025-05-19] MEDS: ATORVASTATIN 20 MG TABLET BY MOUTH (09:03)
--- NOTE | 2025-05-19 09:07 | P.PNCA_ITS ---
Progress Note: A&P Assessment and Plan (1) New onset a-fib: Code(s): I48.91 - Unspecified atrial fibrillation Status: Acute Assessment and Plan: Patient is status post CYRUS guided DC cardioversion with rastafarian to sinus rhythm. Procedure performed on 05/17/2025. On telemetry, she has remained in sinus rhythm. -change IV amiodarone to p.o. amiodarone. -anticoagulation with apixaban. -continue low-dose metoprolol tartrate with holding parameters. Blood pressure is low normal. (2) Pneumonia: Code(s): J18.9 - Pneumonia, unspecified organism Status: Acute Assessment and Plan: On antibiotics and supplemental oxygen as needed. Management per hospitalist. (3) Cardiomyopathy: Code(s): I42.9 - Cardiomyopathy, unspecified Status: Acute Assessment and Plan: Severe LV systolic dysfunction with EF 25-30%. New diagnosis. * Currently on low-dose metoprolol tartrate due to relatively low blood pressures. Can be switched to metoprolol succinate or carvedilol when blood pressure improves. * IV diuresis was previously put on hold due to worsening renal function. Creatinine has improved. May reinitiate oral diuresis with furosemide. Continue to monitor electrolytes and renal function. * Other guideline directed medical treatment for CHF with reduced ejection fraction when renal function improves. * Nephrology evaluation. * Ischemic evaluation when patient is clinically stable. Can be performed as an outpatient. * Life vest prior to discharge Subjective Date/time seen: 05/19/25 09:07 Interval history: Date of service: 05/18/2025 Interval history: Patient is sitting up in the chair at the time of evaluation. She reports modest improvement in dyspnea after restaurants sinus rhythm with DC cardioversion. Patient underwent CYRUS guided DC cardioversion yesterday. On telemetry, she has been in sinus rhythm. 05/19/2025-patient sitting up in the chair. Reports improvement in dyspnea. No chest pain. On telemetry, she has remained in sinus rhythm. Exam Narrative: PHYSICAL EXAMINATION: GENERAL: Alert, sitting up in the chair; appears better today MENTAL STATUS: affect appropriate to mood EYES: Extraocular movements intact, no pallor EARS: External ears appear normal, hearing grossly normal NOSE: Normal and patent, no discharge MOUTH: Mucous membranes moist, tongue normal NECK: Supple, JVD CHEST: Scattered crackles HEART: Normal rate, regular rhythm at present ABDOMEN: Soft, nontender NEUROLOGICAL: Alert, oriented, normal speech MUSCULOSKELETAL: No major deformity, no amputation EXTREMITIES: Trace pedal edema, no clubbing, no cyanosis SKIN: no rash on the exposed area, no cyanosis PSYCHIATRIC: Normal mood, appropriate affect Objective Data Vital Signs Vital Signs: Vital Signs - 24 hr 05/18/25 09:10 05/18/25 10:00 05/18/25 10:00 Temperature Pulse Rate 72 73 73 Respiratory Rate Blood Pressure 103/47 L 103/47 L Pulse Oximetry Oxygen Delivery Oxygen Flow Rate Fraction of Inspired Oxygen 05/18/25 10:00 05/18/25 12:00 05/18/25 12:00 Temperature 36.8 C Pulse Rate 73 74 Respiratory Rate 20 Blood Pressure 112/55 L Pulse Oximetry 95 95 Oxygen Delivery Nasal Cannula Oxygen Flow Rate 1 Fraction of Inspired Oxygen 05/18/25 12:00 05/18/25 12:00 05/18/25 14:00 Temperature 36.6 C Pulse Rate 74 71 83 Respiratory Rate 18 Blood Pressure 112/55 L 125/50 L Pulse Oximetry 95 Oxygen Delivery Oxygen Flow Rate Fraction of Inspired Oxygen 05/18/25 14:00 05/18/25 14:00 05/18/25 16:00 Temperature 36.8 C Pulse Rate 74 74 86 Respiratory Rate 20 Blood Pressure 125/50 L 133/72 Pulse Oximetry 94 Oxygen Delivery Oxygen Flow Rate Fraction of Inspired Oxygen 05/18/25 16:00 05/18/25 16:00 05/18/25 16:00 Temperature Pulse Rate 86 75 Respiratory Rate Blood Pressure 133/72 Pulse Oximetry 96 Oxygen Delivery Room Air Oxygen Flow Rate Fraction of Inspired Oxygen 05/18/25 18:00 05/18/25 18:00 05/18/25 18:00 Temperature Pulse Rate 88 88 88 Respiratory Rate Blood Pressure 105/86 105/86 Pulse Oximetry Oxygen Delivery Oxygen Flow Rate Fraction of Inspired Oxygen 05/18/25 19:49 05/18/25 20:00 05/18/25 20:00 Temperature 36.4 C Pulse Rate 70 76 76 Respiratory Rate 18 18 Blood Pressure 106/86 Pulse Oximetry 92 93 Oxygen Delivery Room Air Oxygen Flow Rate Fraction of Inspired Oxygen 40 05/18/25 21:31 05/18/25 21:40 05/18/25 22:00 Temperature Pulse Rate 76 76 Respiratory Rate Blood Pressure 113/79 Pulse Oximetry 93 Oxygen Delivery Oxygen Flow Rate 1 Fraction of Inspired Oxygen 05/18/25 22:00 05/18/25 22:00 05/18/25 23:00 Temperature Pulse Rate 87 87 76 Respiratory Rate Blood Pressure 106/52 L 106/52 L Pulse Oximetry Oxygen Delivery Oxygen Flow Rate Fraction of Inspired Oxygen 05/19/25 00:00 05/19/25 00:00 05/19/25 00:00 Temperature 36.5 C Pulse Rate 81 95 95 Respiratory Rate 18 19 Blood Pressure 109/86 Pulse Oximetry 91 97 Oxygen Delivery BiPAP Oxygen Flow Rate Fraction of Inspired Oxygen 40 05/19/25 00:00 05/19/25 00:25 05/19/25 02:00 Temperature Pulse Rate 68 95 74 Respiratory Rate 19 Blood Pressure 128/60 Pulse Oximetry 97 Oxygen Delivery BiPAP Oxygen Flow Rate Fraction of Inspired Oxygen 05/19/25 02:00 05/19/25 03:06 05/19/25 03:30 Temperature Pulse Rate 74 76 76 Respiratory Rate 19 Blood Pressure Pulse Oximetry 97 Oxygen Delivery Room Air Oxygen Flow Rate Fraction of Inspired Oxygen 05/19/25 04:00 05/19/25 06:00 05/19/25 06:00 Temperature 36.6 C 36.6 C Pulse Rate 70 70 70 Respiratory Rate 20 16 Blood Pressure 108/56 L 121/46 L Pulse Oximetry 92 97 Oxygen Delivery Oxygen Flow Rate Fraction of Inspired Oxygen 05/19/25 07:56 05/19/25 09:03 Temperature 36.8 C Pulse Rate 75 74 Respiratory Rate 20 Blood Pressure 132/64 Pulse Oximetry 94 Oxygen Delivery Oxygen Flow Rate Fraction of Inspired Oxygen Intake/Output Intake/Output: Intake & Output 05/16/25 05/17/25 05/18/25 05/19/25 23:59 23:59 23:59 23:59 Intake Total 3719.7 1336.4 1401.4 546.6 Output Total 500 1500 2250 2250 Balance 3219.7 -163.6 -848.6 -1703.4 Meds/Results Medications: Active Medications Generic Name Dose Route Start Last Admin Trade Name Freq PRN Reason Stop Dose Admin Acetaminophen 650 mg 05/17/25 21:12 05/17/25 21:17 Acetaminophen 325 Mg Tablet PO 650 mg Q6H PRN Administration Mild Pain (1-3) or Fever Apixaban 5 mg 05/17/25 21:00 05/19/25 09:03 Apixaban 5 Mg Tablet PO 5 mg Q12HR TAIWO Administration Atorvastatin Calcium 20 mg 05/16/25 09:00 05/19/25 09:03 Atorvastatin 20 Mg Tablet BY MOUTH 20 mg DAILY TAIWO Administration Ceftriaxone Sodium 1 gm/ 50 mls @ 100 mls/hr 05/16/25 22:00 05/18/25 21:32 Sodium Chloride IVPB 100 mls/hr Q24H TAIWO Administration Amiodarone HCl/Dextrose 360 mg in 200 mls @ 16.667 mls/hr 05/17/25 10:00 05/19/25 02:00 Nexterone 360 Mg/D5w 200 Ml IV CONT 0.5 mg/min .Q12H TAIWO 16.67 mls/hr 0.5 MG/MIN Infusion Doxycycline Hyclate 100 mg/ 100 mls @ 100 mls/hr 05/18/25 21:00 05/19/25 09:02 Sodium Chloride IVPB 05/20/25 21:59 100 mls/hr Q12H TAIWO Administration Metoprolol Tartrate 25 mg 05/16/25 21:00 05/19/25 09:03 Metoprolol Tartrate 25 Mg Tablet PO 25 mg Q12HR TAIWO Administration Pantoprazole Sodium 40 mg 05/17/25 09:00 05/19/25 09:03 Pantoprazole 40 Mg Tablet PO 40 mg QAM TAIWO Administration Pregabalin 150 mg 05/18/25 09:10 05/19/25 09:02 Pregabalin (*Crx) 75 Mg Capsule PO 150 mg Q12HR TAIWO Administration Radiology Results: ITS Impressions Renal Ultrasound 05/16/25 11:23 IMPRESSION: 1. Increasing mild right renal atrophy. No hydronephrosis in either kidney. Venous Doppler Study 05/16/25 11:29 IMPRESSION: 1. No deep venous thrombosis in either lower limb. Labs Labs: Laboratory Results - last 24 hr 05/19/25 03:41 WBC 8.4 RBC 3.94 L Hgb 10.4 L Hct 32.3 L MCV 82.0 MCH 26.4 MCHC 32.2 RDW 17.1 H Plt Count 139 L MPV 10.8 H Immature Gran % (Auto) 0.5 Neut % (Auto) 73.7 H Lymph % (Auto) 14.2 L [place] % (Auto) 6.8 Eos % (Auto) 4.2 Baso % (Auto) 0.6 Lymph # (Auto) 1.19 [place] # (Auto) 0.6 Eos # (Auto) 0.4 H Baso # (Auto) 0.1 Abs Immat Gran (auto) 0.04 H Absolute Neuts (auto) 6.2 Absolute Nucleated RBC 0.000 Nucleated RBC % 0.0 Sodium 138 Potassium 3.7 Chloride 109 H Carbon Dioxide 19 L Anion Gap 10 BUN 47 H D Creatinine 1.97 H Estim Creat Clear Calc 26 Estimated GFR 25 L Glucose 101 Calcium 8.6 Magnesium 1.4 L Total Bilirubin 0.7 AST 31 ALT 78 H Alkaline Phosphatase 145 H Total Protein 6.2 L Albumin 3.5
[2025-05-19] MEDS: FUROSEMIDE 40 MG TABLET PO ×2 (09:21→16:34)
[2025-05-19] MEDS: MAGNESIUM SULF 2 GM/WATER 50ML 2 GM/50 ML BAG IVPB (09:21)
[2025-05-19] MEDS: POTASSIUM CHLORIDE 20 MEQ ER TABLET PO (09:21)
--- NOTE | 2025-05-19 10:54 | P.PNNP_ITS ---
Progress Note: A&P Assessment and Plan (1) Acute kidney injury: Code(s): N17.9 - Acute kidney failure, unspecified Status: Acute Assessment and Plan: * slowly improving * as noted by labs on admission (creatinine 2.34mg/dL) * suspect multifactorial etiology: * relative hypotension * Afib with RVR * CHF/cardiomyopathy * infection (pneumonia +/- UTI) * NSAID use * prerenal factors * other(?) * evaluation to date: * renal u/s with no hydronephrosis * urine electrolytes prerenal (likely a manifestation of depressed EF) * urine eosinophil negative * CPK normal * no significant proteinuria * optimize hemodynamics * follow trend of repeat labs and UOP (2) Stage 3b chronic kidney disease: Code(s): N18.32 - Chronic kidney disease, stage 3b Status: Chronic Assessment and Plan: * baseline creatinine runs ~ 1.3 - 1.7mg/dl for the last couple of years * presumably secondary to hypertension, vascular disease, and age-related change (3) Shortness of breath: Code(s): R06.02 - Shortness of breath Status: Acute Assessment and Plan: * suspect due to: * pneumonia * Afib with RVR * CHF/cardiomyopathy/plerual effusions * other(?) * continue ongoing interventions as outlined * follow respiratory status (4) New onset a-fib: Code(s): I48.91 - Unspecified atrial fibrillation Status: Acute Assessment and Plan: * new finding * Cardiology following * attempts at rate control strategy not very successful * on anticoagulation * s/p CYRUS + cardioversion earlier today (on 05/17) * now in NSR * on amiodarone and metoprolol * follow telemetry (5) Cardiomyopathy: Code(s): I42.9 - Cardiomyopathy, unspecified Status: Acute Assessment and Plan: * as noted by Echo (on 05/16): * left ventricular systolic function is severely globally reduced estimated at 25-30% * left ventricular diastolic function is abnormal * right ventricular systolic function is at least mildly reduced and with abnormal TAPSE 1.2 cm * moderate to severe mitral valve regurgitation * mild to moderate tricuspid valve regurgitation * mild pulmonary hypertension, estimated pulmonary arterial systolic pressure is 41 mmHg * trace pulmonic regurgitation. * Cardiology following * PRN IV diuretics to optimize volume status * started on oral diuretics * GMDT as tolerated by hemodynamics and renal function (6) Pneumonia: Code(s): J18.9 - Pneumonia, unspecified organism Status: Acute Assessment and Plan: * as suggested by admission CXR * supplemental oxygen * follow culutre data * on antibiotics (7) Anemia: Code(s): D64.9 - Anemia, unspecified Status: Acute Assessment and Plan: * due to PETER, CKD, and acute illness * no need for KAYLYNN * follow trend of H/H (8) Essential (primary) hypertension: Code(s): I10 - Essential (primary) hypertension Status: Acute Assessment and Plan: * running on the soft side since admission * home BP medications on hold * follow trend of hemodynamics Will continue to follow. L Subjective Date/time seen: 05/19/25 10:54 Interval history: Follow-up for acute kidney injury/acute renal failure on chronic kidney disease. Renal function/creatinine appears to be improving despite intermittent IV diuretic use; states breathing/respiratory status is stable if not better at the time of my visit; remains in sinus rhythm by telemetry; no apparent distress voiced when seen. Exam 2 Narrative: General: elderly but WD/WN female in NAD Heart: normal S1 and S2; no rub Lungs: decreased at bases Abdomen: soft, nontender, nondistended, positive bowel sounds Extremities: no cyanosis or clubbing; no edema Skin: warm and intact Objective Data Vital Signs Vital Signs: Vital Signs Temp Pulse Resp BP Pulse Ox O2 Del Method O2 Flow Rate 05/19/25 10:00 97.9 F 75 16 152/85 H 100 05/19/25 09:03 74 05/19/25 08:00 75 05/19/25 08:00 75 20 94 Room Air 05/19/25 07:56 98.2 F 75 20 132/64 94 05/19/25 06:00 97.8 F 70 16 121/46 L 97 05/19/25 06:00 70 05/19/25 04:00 97.8 F 70 20 108/56 L 92 05/19/25 03:30 76 19 97 Room Air 05/19/25 03:06 76 05/19/25 02:00 74 05/19/25 02:00 74 128/60 05/19/25 00:25 95 19 97 BiPAP 05/19/25 00:00 68 05/19/25 00:00 95 05/19/25 00:00 95 19 97 BiPAP 05/19/25 00:00 97.7 F 81 18 109/86 91 05/18/25 23:00 76 05/18/25 22:00 87 106/52 L 05/18/25 22:00 87 106/52 L 05/18/25 22:00 76 113/79 05/18/25 21:40 93 1 05/18/25 21:31 76 05/18/25 20:00 76 05/18/25 20:00 76 18 93 Room Air 05/18/25 19:49 97.6 F 70 18 106/86 92 05/18/25 18:00 88 105/86 05/18/25 18:00 88 105/86 05/18/25 18:00 88 05/18/25 16:00 75 05/18/25 16:00 96 Room Air 05/18/25 16:00 86 133/72 05/18/25 16:00 98.3 F 86 20 133/72 94 Intake/Output Intake/Output: Intake & Output 05/16/25 05/17/25 05/18/25 05/19/25 23:59 23:59 23:59 23:59 Intake Total 3719.7 1336.4 1401.4 546.6 Output Total 500 1500 2250 4250 Balance 3219.7 -163.6 -848.6 -3703.4 Meds/Results Medications: Active Medications Generic Name Dose Route Start Last Admin Trade Name Freq PRN Reason Stop Dose Admin Acetaminophen 650 mg 05/17/25 21:12 05/17/25 21:17 Acetaminophen 325 Mg Tablet PO 650 mg Q6H PRN Administration Mild Pain (1-3) or Fever Amiodarone HCl 200 mg 05/19/25 17:00 Amiodarone Hcl 200 Mg Tablet PO BID TAIWO Apixaban 5 mg 05/17/25 21:00 05/19/25 09:03 Apixaban 5 Mg Tablet PO 5 mg Q12HR TAIWO Administration Atorvastatin Calcium 20 mg 05/16/25 09:00 05/19/25 09:03 Atorvastatin 20 Mg Tablet BY MOUTH 20 mg DAILY TAIWO Administration Furosemide 40 mg 05/19/25 09:30 05/19/25 09:21 Furosemide 40 Mg Tablet PO 40 mg BID TAIWO Administration Ceftriaxone Sodium 1 gm/ 50 mls @ 100 mls/hr 05/16/25 22:00 05/18/25 21:32 Sodium Chloride IVPB 100 mls/hr Q24H TAIWO Administration Doxycycline Hyclate 100 mg/ 100 mls @ 100 mls/hr 05/18/25 21:00 05/19/25 09:02 Sodium Chloride IVPB 05/20/25 21:59 100 mls/hr Q12H TAIWO Administration Metoprolol Tartrate 25 mg 05/16/25 21:00 05/19/25 09:03 Metoprolol Tartrate 25 Mg Tablet PO 25 mg Q12HR TAIWO Administration Pantoprazole Sodium 40 mg 05/17/25 09:00 05/19/25 09:03 Pantoprazole 40 Mg Tablet PO 40 mg QAM TAIWO Administration Pregabalin 150 mg 05/18/25 09:10 05/19/25 09:02 Pregabalin (*Crx) 75 Mg Capsule PO 150 mg Q12HR TAIWO Administration Radiology Results: ITS Impressions Renal Ultrasound 05/16/25 11:23 IMPRESSION: 1. Increasing mild right renal atrophy. No hydronephrosis in either kidney. Venous Doppler Study 05/16/25 11:29 IMPRESSION: 1. No deep venous thrombosis in either lower limb. Labs Labs: Laboratory Tests 05/19/25 03:41 05/19/25 03:41 Calcium 8.6 Magnesium 1.4 L Total Bilirubin 0.7 AST 31 ALT 78 H Alkaline Phosphatase 145 H Total Protein 6.2 L Albumin 3.5 Microbiology 05/15/25 22:08 Blood Blood Culture - Preliminary 05/15/25 22:08 Blood Blood Culture - Preliminary
--- NOTE | 2025-05-19 12:47 | P.PNIM_ITS ---
Progress Note: A&P Assessment and Plan (1) Pneumonia: Code(s): J18.9 - Pneumonia, unspecified organism Status: Acute (2) New onset a-fib: Code(s): I48.91 - Unspecified atrial fibrillation Status: Acute (3) Essential hypertension: Code(s): I10 - Essential (primary) hypertension Status: Acute (4) Hyperlipidemia: Qualifiers: Hyperlipidemia type: mixed hyperlipidemia Qualified Code(s): E78.2 - Mixed hyperlipidemia Code(s): E78.5 - Hyperlipidemia, unspecified Status: Acute (5) Acute kidney injury: Code(s): N17.9 - Acute kidney failure, unspecified Status: Acute (6) Hypomagnesemia: Code(s): E83.42 - Hypomagnesemia Status: Acute Plan This is a 79-year-old female patient who has not been feeling well for the last week however shortness of breath gotten progressively worse over the last 24 hours. She denies any chest pain but is more short of breath with exertion. She denies any fever or chills. Her white count was elevated to be 10.5. H&H is 11.1 and 35.2. Arterial blood gases pH 7.303 pCO2 was 24.7 and bicarb 12. Patient was started on a BiPAP due to her shortness of breath. Chloride 110, carbon dioxide 12, anion gap 15, BUN 54, creatinine 2.34. Lactic initially was 2.2 and came down to 1.9. Troponin negative x2. BNP 24665. Magnesium was low at 1.1. Urine is cloudy with 2+ protein, 1+ leukocyte esterase, and trace ketones. Viral serology is negative. Chest x-ray was read as bilateral lower lobe infiltrate and pleural effusions are noted. Her EKG was read as atrial fibrillation with rapid ventricular response with a heart rate of 134. She was started on a Zithromax and Rocephin for the infiltrates. She was started on a Cardizem drip and heparin drip in the emergency room. She was given IV magnesium, given a neb treatment as well as IV fluids. The patient is being admitted to IMU observation on the date of service of 05/16/2024. AFib with RVR cardiology consulted initially started on Cardizem drip. Which has been discontinued due to hypotension. Cardiology Recommended OPAL/cardioversion. New onset status post opal/cardioversion with successful conversion to sinus rhythm. On beta-celi. Now initiated amiodarone drip. Which will be switched to oral amiodarone Pneumonia treated with ceftriaxone and doxycycline. Chest x-ray with bilateral lower lobe infiltrate and pleural effusions hypoxic resp failure: on oxygen supp. bipap prn which will be discontinued now. PETER with creatinine of 2.3 baseline creatinine 1.4. Admission creatinine of 2.3. Renal ultrasound negative for hydronephrosis. Likely cardiorenal syndrome will continue to monitor. Renal has been consulted. Newly diagnosed severe global LV systolic dysfunction ejection fraction 25-30% [id number] TR moderate to severe MR moderate to severe left atrial enlargement. Ischemic evaluation when clinically stable. LifeVest at discharge. Intermittent diuresis per Nephrology Metabolic acidosis improved venous duplex negative Hypertension Hyperlipidemia Lactic acidosis UTI mild WBC in urine 6-10. DVT prophylaxis heparin drip now switched to apixaban Code status full code Subjective Date/time seen: 05/19/25 12:47 Interval history: She gets a bit confused in the evening. Still was some what paranoid this a.m. breathing is improved. No leg swelling no shortness of breath or chest pain. Review of Systems Review of Systems: All systems reviewed & are unremarkable except as noted in HPI and below Exam Narrative: Patient is comfortable, NAD HEENT: eyes are clear and none icteric LUNGS: Diminished breath sounds bilaterally no wheezes HEART: RR S1S2 ABD: BS+, Soft and nontender Lower extremities: no edema SKIN: nonjaundiced Neuro: grossly intact. Alert and oriented x3. Objective Data Vital Signs Vital Signs: Vital Signs - 24 hr 05/18/25 14:00 05/18/25 14:00 05/18/25 14:00 Temperature 97.9 F Pulse Rate 83 74 74 Respiratory Rate 18 Blood Pressure 125/50 L 125/50 L Pulse Oximetry 95 Oxygen Delivery Oxygen Flow Rate Fraction of Inspired Oxygen 05/18/25 16:00 05/18/25 16:00 05/18/25 16:00 Temperature 98.3 F Pulse Rate 86 86 Respiratory Rate 20 Blood Pressure 133/72 133/72 Pulse Oximetry 94 96 Oxygen Delivery Room Air Oxygen Flow Rate Fraction of Inspired Oxygen 05/18/25 16:00 05/18/25 18:00 05/18/25 18:00 Temperature Pulse Rate 75 88 88 Respiratory Rate Blood Pressure 105/86 Pulse Oximetry Oxygen Delivery Oxygen Flow Rate Fraction of Inspired Oxygen 05/18/25 18:00 05/18/25 19:49 05/18/25 20:00 Temperature 97.6 F Pulse Rate 88 70 76 Respiratory Rate 18 18 Blood Pressure 105/86 106/86 Pulse Oximetry 92 93 Oxygen Delivery Room Air Oxygen Flow Rate Fraction of Inspired Oxygen 40 05/18/25 20:00 05/18/25 21:31 05/18/25 21:40 Temperature Pulse Rate 76 76 Respiratory Rate Blood Pressure Pulse Oximetry 93 Oxygen Delivery Oxygen Flow Rate 1 Fraction of Inspired Oxygen 05/18/25 22:00 05/18/25 22:00 05/18/25 22:00 Temperature Pulse Rate 76 87 87 Respiratory Rate Blood Pressure 113/79 106/52 L 106/52 L Pulse Oximetry Oxygen Delivery Oxygen Flow Rate Fraction of Inspired Oxygen 05/18/25 23:00 05/19/25 00:00 05/19/25 00:00 Temperature 97.7 F Pulse Rate 76 81 95 Respiratory Rate 18 19 Blood Pressure 109/86 Pulse Oximetry 91 97 Oxygen Delivery BiPAP Oxygen Flow Rate Fraction of Inspired Oxygen 40 05/19/25 00:00 05/19/25 00:00 05/19/25 00:25 Temperature Pulse Rate 95 68 95 Respiratory Rate 19 Blood Pressure Pulse Oximetry 97 Oxygen Delivery BiPAP Oxygen Flow Rate Fraction of Inspired Oxygen 05/19/25 02:00 05/19/25 02:00 05/19/25 03:06 Temperature Pulse Rate 74 74 76 Respiratory Rate Blood Pressure 128/60 Pulse Oximetry Oxygen Delivery Oxygen Flow Rate Fraction of Inspired Oxygen 05/19/25 03:30 05/19/25 04:00 05/19/25 06:00 Temperature 97.8 F Pulse Rate 76 70 70 Respiratory Rate 19 20 Blood Pressure 108/56 L Pulse Oximetry 97 92 Oxygen Delivery Room Air Oxygen Flow Rate Fraction of Inspired Oxygen 05/19/25 06:00 05/19/25 07:56 05/19/25 08:00 Temperature 97.8 F 98.2 F Pulse Rate 70 75 75 Respiratory Rate 16 20 20 Blood Pressure 121/46 L 132/64 Pulse Oximetry 97 94 94 Oxygen Delivery Room Air Oxygen Flow Rate Fraction of Inspired Oxygen 40 05/19/25 08:00 05/19/25 09:03 05/19/25 10:00 Temperature Pulse Rate 75 74 72 Respiratory Rate Blood Pressure Pulse Oximetry Oxygen Delivery Oxygen Flow Rate Fraction of Inspired Oxygen 05/19/25 12:00 Temperature 97.9 F Pulse Rate 75 Respiratory Rate 16 Blood Pressure 152/85 H Pulse Oximetry 100 Oxygen Delivery Oxygen Flow Rate Fraction of Inspired Oxygen Intake/Output Intake/Output: Intake & Output 05/16/25 05/17/25 05/18/25 05/19/25 23:59 23:59 23:59 23:59 Intake Total 3719.7 1336.4 1401.4 546.6 Output Total 500 1500 2250 4250 Balance 3219.7 -163.6 -848.6 -3703.4 Meds/Results Medications: Active Medications Generic Name Dose Route Start Last Admin Trade Name Freq PRN Reason Stop Dose Admin Acetaminophen 650 mg 05/17/25 21:12 05/17/25 21:17 Acetaminophen 325 Mg Tablet PO 650 mg Q6H PRN Administration Mild Pain (1-3) or Fever Amiodarone HCl 200 mg 05/19/25 17:00 Amiodarone Hcl 200 Mg Tablet PO BID TAIWO Apixaban 5 mg 05/17/25 21:00 05/19/25 09:03 Apixaban 5 Mg Tablet PO 5 mg Q12HR TAIWO Administration Atorvastatin Calcium 20 mg 05/16/25 09:00 05/19/25 09:03 Atorvastatin 20 Mg Tablet BY MOUTH 20 mg DAILY TAIWO Administration Furosemide 40 mg 05/19/25 09:30 05/19/25 09:21 Furosemide 40 Mg Tablet PO 40 mg BID TAIWO Administration Ceftriaxone Sodium 1 gm/ 50 mls @ 100 mls/hr 05/16/25 22:00 05/18/25 21:32 Sodium Chloride IVPB 100 mls/hr Q24H TAIWO Administration Doxycycline Hyclate 100 mg/ 100 mls @ 100 mls/hr 05/18/25 21:00 05/19/25 09:02 Sodium Chloride IVPB 05/20/25 21:59 100 mls/hr Q12H TAIWO Administration Metoprolol Tartrate 25 mg 05/16/25 21:00 05/19/25 09:03 Metoprolol Tartrate 25 Mg Tablet PO 25 mg Q12HR TAIWO Administration Pantoprazole Sodium 40 mg 05/17/25 09:00 05/19/25 09:03 Pantoprazole 40 Mg Tablet PO 40 mg QAM TAIWO Administration Pregabalin 150 mg 05/18/25 09:10 05/19/25 09:02 Pregabalin (*Crx) 75 Mg Capsule PO 150 mg Q12HR TAIWO Administration Radiology Results: ITS Impressions Renal Ultrasound 05/16/25 11:23 IMPRESSION: 1. Increasing mild right renal atrophy. No hydronephrosis in either kidney. Venous Doppler Study 05/16/25 11:29 IMPRESSION: 1. No deep venous thrombosis in either lower limb. Labs Labs: Laboratory Results - last 24 hr 05/19/25 03:41 WBC 8.4 RBC 3.94 L Hgb 10.4 L Hct 32.3 L MCV 82.0 MCH 26.4 MCHC 32.2 RDW 17.1 H Plt Count 139 L MPV 10.8 H Immature Gran % (Auto) 0.5 Neut % (Auto) 73.7 H Lymph % (Auto) 14.2 L [place] % (Auto) 6.8 Eos % (Auto) 4.2 Baso % (Auto) 0.6 Lymph # (Auto) 1.19 [place] # (Auto) 0.6 Eos # (Auto) 0.4 H Baso # (Auto) 0.1 Abs Immat Gran (auto) 0.04 H Absolute Neuts (auto) 6.2 Absolute Nucleated RBC 0.000 Nucleated RBC % 0.0 Sodium 138 Potassium 3.7 Chloride 109 H Carbon Dioxide 19 L Anion Gap 10 BUN 47 H D Creatinine 1.97 H Estim Creat Clear Calc 26 Estimated GFR 25 L Glucose 101 Calcium 8.6 Magnesium 1.4 L Total Bilirubin 0.7 AST 31 ALT 78 H Alkaline Phosphatase 145 H Total Protein 6.2 L Albumin 3.5
[2025-05-19] MEDS: AMIODARONE HCL 200 MG TABLET PO (16:34)
[2025-05-19] MEDS: cefTRIAXone 1 GM in SODIUM CHLORIDE 0.9% IV 50 ML 100 ML IVPB (21:24)
[2025-05-20] VITALS (14 sets, daily range): BP systolic 115–128; BP diastolic 48–77; PULSE 68–89; RESP 14–20; TEMP 36.6–37.2; O2SAT 90–98
[2025-05-20 04:27] LABS: Hematocrit 35.1 % (37.0-47.0); Hemoglobin 11.4 g/dL (12.0-15.0); Immature Granulocyte Percent A 0.7 % (0-0.5); Lymphocytes Absolute Auto 1.01 K/mm3 (0.9-3.2); Mean Corpuscular HGB Conc 32.5 g/dl (32-36); Mean Corpuscular Hemoglobin 26.6 pg (26-34); Mean Corpuscular Volume 82.0 fl (80-100); Nucleated Red Blood Cells Absolute Auto 0.000 K/mm3 (0.0-0.012); Nucleated Red Blood Cells Perc 0.0 % (0.0-0.2); Platelet Count Result 148 k/mm3 (150-375); Red Blood Count 4.28 M/mm3 (4.2-5.4); White Blood Count 8.7 K/mm3 (4.5-10.0)
[2025-05-20 04:51] LABS: Alanine Aminotransferase 62 U/L (6-35); Albumin Level 3.7 g/dL (3.5-5.1); Alkaline Phosphatase 146 U/L (38-126); Anion Gap 9 mmol/L (4-12); Aspartate Amino Transferase 25 U/L (14-36); Bilirubin,Total 1.1 mg/dL (0.2-1.3); Blood Urea Nitrogen 36 mg/dL (7-17); Calcium 8.6 mg/dL (8.4-10.2); Carbon Dioxide 26 mmol/L (22-30); Chloride 104 mmol/L (98-107); Estimated CRCL calculation 33 ml/min; Estimated Glomerular Filt Rate 32; Glucose 106 mg/dL (65-110); Magnesium 1.4 mg/dL (1.6-2.3); Potassium 3.6 mmol/L (3.4-5.0); Sodium 139 mmol/L (137-145); Total Protein 6.5 g/dL (6.3-8.2)
[2025-05-20] MEDS: AMIODARONE HCL 200 MG TABLET PO ×2 (08:21→17:36)
[2025-05-20] MEDS: FUROSEMIDE 40 MG TABLET PO ×2 (08:21→17:36)
[2025-05-20] MEDS: APIXABAN 5 MG TABLET PO ×2 (08:21→21:00)
[2025-05-20] MEDS: PREGABALIN (*CRX) 75 MG CAPSULE 150 MG PO ×2 (08:21→21:01)
[2025-05-20] MEDS: PANTOPRAZOLE 40 MG TABLET PO (08:21)
[2025-05-20] MEDS: ATORVASTATIN 20 MG TABLET BY MOUTH (08:21)
[2025-05-20] MEDS: DOXYCYCLINE IV 100 MG in SODIUM CHLORIDE 0.9% IV 100 ML IVPB (08:22)
[2025-05-20] MEDS: METOPROLOL TARTRATE 25 MG TABLET PO ×2 (08:22→21:01)
[2025-05-20] MEDS: CEFDINIR 300 MG CAPSULE PO ×2 (09:38→21:00)
[2025-05-20] MEDS: POTASSIUM CHLORIDE 20 MEQ ER TABLET 40 MEQ PO (09:39)
[2025-05-20] MEDS: MAGNESIUM SULF 2 GM/WATER 50ML 2 GM/50 ML BAG IVPB (09:39)
--- NOTE | 2025-05-20 10:17 | P.PNNP_ITS ---
Progress Note: A&P Assessment and Plan (1) Acute kidney injury: Code(s): N17.9 - Acute kidney failure, unspecified Status: Acute Assessment and Plan: * slowly improving if not back to baseline * as noted by labs on admission (creatinine 2.34mg/dL) * suspect multifactorial etiology: * relative hypotension * Afib with RVR * CHF/cardiomyopathy * infection (pneumonia +/- UTI) * NSAID use * prerenal factors * other(?) * evaluation to date: * renal u/s with no hydronephrosis * urine electrolytes prerenal (likely a manifestation of depressed EF) * urine eosinophil negative * CPK normal * no significant proteinuria * optimize hemodynamics * follow trend of repeat labs and UOP (2) Stage 3b chronic kidney disease: Code(s): N18.32 - Chronic kidney disease, stage 3b Status: Chronic Assessment and Plan: * baseline creatinine runs ~ 1.3 - 1.7mg/dl for the last couple of years * presumably secondary to hypertension, vascular disease, and age-related change * suspect new cardiomyopathy playing a role as well... (3) Shortness of breath: Code(s): R06.02 - Shortness of breath Status: Acute Assessment and Plan: * clinical improvement noted * suspect due to: * pneumonia * Afib with RVR * CHF/cardiomyopathy/plerual effusions * other(?) * continue ongoing interventions as outlined * follow respiratory status (4) New onset a-fib: Code(s): I48.91 - Unspecified atrial fibrillation Status: Acute Assessment and Plan: * new finding * Cardiology following * attempts at rate control strategy not very successful * on anticoagulation * s/p CYRUS + cardioversion earlier today (on 05/17) * now in NSR * on amiodarone and metoprolol * follow telemetry (5) Cardiomyopathy: Code(s): I42.9 - Cardiomyopathy, unspecified Status: Acute Assessment and Plan: * as noted by Echo (on 05/16): * left ventricular systolic function is severely globally reduced estimated at 25-30% * left ventricular diastolic function is abnormal * right ventricular systolic function is at least mildly reduced and with abnormal TAPSE 1.2 cm * moderate to severe mitral valve regurgitation * mild to moderate tricuspid valve regurgitation * mild pulmonary hypertension, estimated pulmonary arterial systolic pressure is 41 mmHg * trace pulmonic regurgitation. * Cardiology following * PRN IV diuretics to optimize volume status * started on oral diuretics * GMDT as tolerated by hemodynamics and renal function (6) Pneumonia: Code(s): J18.9 - Pneumonia, unspecified organism Status: Acute Assessment and Plan: * as suggested by admission CXR * supplemental oxygen * follow culutre data * on antibiotics (7) Anemia: Code(s): D64.9 - Anemia, unspecified Status: Acute Assessment and Plan: * due to PETER, CKD, and acute illness * no need for KAYLYNN * follow trend of H/H (8) Essential (primary) hypertension: Code(s): I10 - Essential (primary) hypertension Status: Acute Assessment and Plan: * running on the soft side since admission * home BP medications on hold * follow trend of hemodynamics Will continue to follow. L Subjective Date/time seen: 05/20/25 10:17 Interval history: Follow-up for acute kidney injury/acute renal failure on chronic kidney disease. Appears to be doing reasonably well at the time of my visit; breathing appears to be doing quite well and weaned off supplemental oxygen when seen; good urine output noted in respoinse to diuretic therapy; no other issues/events overnight or earlier this morning. Exam 2 Narrative: General: elderly but WD/WN female in NAD Heart: normal S1 and S2; no rub Lungs: decreased at bases Abdomen: soft, nontender, nondistended, positive bowel sounds Extremities: no cyanosis or clubbing; no edema Skin: no rash Objective Data Vital Signs Vital Signs: Vital Signs Temp Pulse Resp BP Pulse Ox O2 Del Method FiO2 05/20/25 10:00 98.9 F 81 20 115/61 97 05/20/25 09:51 Room Air 05/20/25 08:22 80 05/20/25 08:21 80 05/20/25 08:00 89 20 98 Room Air 40 05/20/25 08:00 89 05/20/25 08:00 97.8 F 79 20 122/48 L 98 05/20/25 04:00 98.0 F 83 14 128/64 96 05/20/25 03:37 80 05/20/25 03:37 80 16 90 Room Air 40 05/20/25 01:40 80 05/20/25 00:00 98.5 F 80 16 125/77 90 05/20/25 00:00 80 16 90 Room Air 40 05/19/25 23:58 81 05/19/25 20:19 79 05/19/25 20:00 79 16 96 Room Air 40 05/19/25 20:00 82 05/19/25 20:00 98.0 F 76 16 123/50 L 96 Intake/Output Intake/Output: Intake & Output 05/17/25 05/18/25 05/19/25 05/20/25 23:59 23:59 23:59 23:59 Intake Total 1336.4 1451.4 1466.6 600 Output Total 1500 2250 5850 550 Balance -163.6 -798.6 -4383.4 50 Meds/Results Medications: Active Medications Generic Name Dose Route Start Last Admin Trade Name Freq PRN Reason Stop Dose Admin Acetaminophen 650 mg 05/17/25 21:12 05/17/25 21:17 Acetaminophen 325 Mg Tablet PO 650 mg Q6H PRN Administration Mild Pain (1-3) or Fever Amiodarone HCl 200 mg 05/19/25 17:00 05/20/25 08:21 Amiodarone Hcl 200 Mg Tablet PO 200 mg BID TAIWO Administration Apixaban 5 mg 05/17/25 21:00 05/20/25 08:21 Apixaban 5 Mg Tablet PO 5 mg Q12HR TAIWO Administration Atorvastatin Calcium 20 mg 05/16/25 09:00 05/20/25 08:21 Atorvastatin 20 Mg Tablet BY MOUTH 20 mg DAILY TAIWO Administration Cefdinir 300 mg 05/20/25 09:00 05/20/25 09:38 Cefdinir 300 Mg Capsule PO 05/23/25 08:59 300 mg Q12HR TAIWO Administration Doxycycline Hyclate 100 mg 05/20/25 21:00 Doxycycline Hyclate 100 Mg Tablet PO 05/20/25 21:01 ONCE ONE Furosemide 40 mg 05/19/25 09:30 05/20/25 08:21 Furosemide 40 Mg Tablet PO 40 mg BID TAIWO Administration Metoprolol Tartrate 25 mg 05/16/25 21:00 05/20/25 08:22 Metoprolol Tartrate 25 Mg Tablet PO 25 mg Q12HR TAIWO Administration Pantoprazole Sodium 40 mg 05/17/25 09:00 05/20/25 08:21 Pantoprazole 40 Mg Tablet PO 40 mg QAM TAIWO Administration Pregabalin 150 mg 05/18/25 09:10 05/20/25 08:21 Pregabalin (*Crx) 75 Mg Capsule PO 150 mg Q12HR TAIWO Administration Radiology Results: ITS Impressions Renal Ultrasound 05/16/25 11:23 IMPRESSION: 1. Increasing mild right renal atrophy. No hydronephrosis in either kidney. Venous Doppler Study 05/16/25 11:29 IMPRESSION: 1. No deep venous thrombosis in either lower limb. Chest X-Ray 05/19/25 14:18 Impression: CHF. Labs Labs: Laboratory Tests 05/20/25 03:57 05/20/25 03:57 Magnesium 1.4 L Total Bilirubin 1.1 AST 25 ALT 62 H Alkaline Phosphatase 146 H Total Protein 6.5 Albumin 3.7 Microbiology 05/16/25 15:15 Urine - Urine [place] Legionella pneumophila Serogrp 1 Ag - Final 05/16/25 14:36 Urine - Ur Legionella pneumophila Serogrp 1 Ag - Final 05/15/25 22:08 Blood Blood Culture - Preliminary 05/15/25 22:08 Blood Blood Culture - Preliminary
--- NOTE | 2025-05-20 12:32 | PM.IMPN ---
Progress Note: A&P Assessment and Plan (1) Pneumonia: Code(s): J18.9 - Pneumonia, unspecified organism Status: Acute (2) New onset a-fib: Code(s): I48.91 - Unspecified atrial fibrillation Status: Acute (3) Essential hypertension: Code(s): I10 - Essential (primary) hypertension Status: Acute (4) Hyperlipidemia: Qualifiers: Hyperlipidemia type: mixed hyperlipidemia Qualified Code(s): E78.2 - Mixed hyperlipidemia Code(s): E78.5 - Hyperlipidemia, unspecified Status: Acute (5) Acute kidney injury: Code(s): N17.9 - Acute kidney failure, unspecified Status: Acute (6) Hypomagnesemia: Code(s): E83.42 - Hypomagnesemia Status: Acute Plan This is a 79-year-old female patient who has not been feeling well for the last week however shortness of breath gotten progressively worse over the last 24 hours. She denies any chest pain but is more short of breath with exertion. She denies any fever or chills. Her white count was elevated to be 10.5. H&H is 11.1 and 35.2. Arterial blood gases pH 7.303 pCO2 was 24.7 and bicarb 12. Patient was started on a BiPAP due to her shortness of breath. Chloride 110, carbon dioxide 12, anion gap 15, BUN 54, creatinine 2.34. Lactic initially was 2.2 and came down to 1.9. Troponin negative x2. BNP 36074. Magnesium was low at 1.1. Urine is cloudy with 2+ protein, 1+ leukocyte esterase, and trace ketones. Viral serology is negative. Chest x-ray was read as bilateral lower lobe infiltrate and pleural effusions are noted. Her EKG was read as atrial fibrillation with rapid ventricular response with a heart rate of 134. She was started on a Zithromax and Rocephin for the infiltrates. She was started on a Cardizem drip and heparin drip in the emergency room. She was given IV magnesium, given a neb treatment as well as IV fluids. The patient is being admitted to IMU observation on the date of service of 05/16/2024. AFib with RVR cardiology consulted initially started on Cardizem drip. Which has been discontinued due to hypotension. Cardiology Recommended OPAL/cardioversion. New onset status post opal/cardioversion with successful conversion to sinus rhythm. On beta-celi. Now initiated amiodarone drip. Which will be switched to oral amiodarone Pneumonia treated with ceftriaxone and doxycycline. Chest x-ray with bilateral lower lobe infiltrate and pleural effusions. Switched to oral antibiotics. hypoxic resp failure: on oxygen supp. bipap prn which will be discontinued now. Off oxygen now PETER with creatinine of 2.3 baseline creatinine 1.4. Admission creatinine of 2.3. Renal ultrasound negative for hydronephrosis. Likely cardiorenal syndrome will continue to monitor. Renal has been consulted. Newly diagnosed severe global LV systolic dysfunction ejection fraction 25-30% [id number] TR moderate to severe MR moderate to severe left atrial enlargement. Ischemic evaluation when clinically stable. LifeVest at discharge. Intermittent diuresis per Nephrology currently on Lasix 40 b.i.d.. Metabolic acidosis improved venous duplex negative Hypertension Hyperlipidemia Lactic acidosis UTI mild WBC in urine 6-10. DVT prophylaxis heparin drip now switched to apixaban Code status full code Subjective Date/time seen: 05/20/25 12:32 Interval history: No overnight events. States she is doing okay. Breathing better. Labs reviewed. Remains in sinus rhythm. No chest pain. Review of Systems Review of Systems: All systems reviewed & are unremarkable except as noted in HPI and below Exam Narrative: Patient is comfortable, NAD HEENT: eyes are clear and none icteric LUNGS: Diminished breath sounds bilaterally no wheezes HEART: RR S1S2 ABD: BS+, Soft and nontender Lower extremities: no edema SKIN: nonjaundiced Neuro: grossly intact. Alert and oriented x3. Objective Data Vital Signs Vital Signs: Vital Signs - 24 hr 05/19/25 14:00 05/19/25 15:39 05/19/25 16:00 Temperature 98.1 F Pulse Rate 75 74 88 Respiratory Rate 14 14 Blood Pressure 129/67 Pulse Oximetry 97 97 Oxygen Delivery Room Air Fraction of Inspired Oxygen 40 05/19/25 16:00 05/19/25 16:34 05/19/25 20:00 Temperature 98.0 F Pulse Rate 75 92 76 Respiratory Rate 16 Blood Pressure 123/50 L Pulse Oximetry 96 Oxygen Delivery Fraction of Inspired Oxygen 05/19/25 20:00 05/19/25 20:00 05/19/25 20:19 Temperature Pulse Rate 82 79 79 Respiratory Rate 16 Blood Pressure Pulse Oximetry 96 Oxygen Delivery Room Air Fraction of Inspired Oxygen 40 05/19/25 23:58 05/20/25 00:00 05/20/25 00:00 Temperature 98.5 F Pulse Rate 81 80 80 Respiratory Rate 16 16 Blood Pressure 125/77 Pulse Oximetry 90 90 Oxygen Delivery Room Air Fraction of Inspired Oxygen 40 05/20/25 01:40 05/20/25 03:37 05/20/25 03:37 Temperature Pulse Rate 80 80 80 Respiratory Rate 16 Blood Pressure Pulse Oximetry 90 Oxygen Delivery Room Air Fraction of Inspired Oxygen 40 05/20/25 04:00 05/20/25 08:00 05/20/25 08:00 Temperature 98.0 F 97.8 F Pulse Rate 83 79 89 Respiratory Rate 14 20 Blood Pressure 128/64 122/48 L Pulse Oximetry 96 98 Oxygen Delivery Fraction of Inspired Oxygen 05/20/25 08:00 05/20/25 08:21 05/20/25 08:22 Temperature Pulse Rate 89 80 80 Respiratory Rate 20 Blood Pressure Pulse Oximetry 98 Oxygen Delivery Room Air Fraction of Inspired Oxygen 40 05/20/25 09:51 05/20/25 12:00 Temperature 98.9 F Pulse Rate 81 Respiratory Rate 20 Blood Pressure 115/61 Pulse Oximetry 97 Oxygen Delivery Room Air Fraction of Inspired Oxygen Intake/Output Intake/Output: Intake & Output 05/17/25 05/18/25 05/19/25 05/20/25 23:59 23:59 23:59 23:59 Intake Total 1336.4 1451.4 1466.6 360 Output Total 1500 2250 5850 550 [facility] -163.6 -798.6 -4383.4 -190 Meds/Results Medications: Active Medications Generic Name Dose Route Start Last Admin Trade Name Freq PRN Reason Stop Dose Admin Acetaminophen 650 mg 05/17/25 21:12 05/17/25 21:17 Acetaminophen 325 Mg Tablet PO 650 mg Q6H PRN Administration Mild Pain (1-3) or Fever Amiodarone HCl 200 mg 05/19/25 17:00 05/20/25 08:21 Amiodarone Hcl 200 Mg Tablet PO 200 mg BID TAIWO Administration Apixaban 5 mg 05/17/25 21:00 05/20/25 08:21 Apixaban 5 Mg Tablet PO 5 mg Q12HR TAIWO Administration Atorvastatin Calcium 20 mg 10/16/25 09:00 05/20/25 08:21 Atorvastatin 20 Mg Tablet BY MOUTH 20 mg DAILY TAIWO Administration Cefdinir 300 mg 05/20/25 09:00 05/20/25 09:38 Cefdinir 300 Mg Capsule PO 05/23/25 08:59 300 mg Q12HR TAIWO Administration Doxycycline Hyclate 100 mg 05/20/25 21:00 Doxycycline Hyclate 100 Mg Tablet PO 05/20/25 21:01 ONCE ONE Furosemide 40 mg 05/19/25 09:30 05/20/25 08:21 Furosemide 40 Mg Tablet PO 40 mg BID TAIWO Administration Metoprolol Tartrate 25 mg 05/16/25 21:00 05/20/25 08:22 Metoprolol Tartrate 25 Mg Tablet PO 25 mg Q12HR TAIWO Administration Pantoprazole Sodium 40 mg 05/17/25 09:00 05/20/25 08:21 Pantoprazole 40 Mg Tablet PO 40 mg QAM TAIWO Administration Pregabalin 150 mg 05/18/25 09:10 05/20/25 08:21 Pregabalin (*Crx) 75 Mg Capsule PO 150 mg Q12HR TAIWO Administration Radiology Results: ITS Impressions Renal Ultrasound 05/16/25 11:23 IMPRESSION: 1. Increasing mild right renal atrophy. No hydronephrosis in either kidney. Venous Doppler Study 05/16/25 11:29 IMPRESSION: 1. No deep venous thrombosis in either lower limb. Chest X-Ray 05/19/25 14:18 Impression: CHF. Labs Labs: Laboratory Results - last 24 hr 05/20/25 03:57 WBC 8.7 RBC 4.28 Hgb 11.4 L Hct 35.1 L MCV 82.0 MCH 26.6 MCHC 32.5 RDW 17.2 H Plt Count 148 L MPV 10.4 Immature Gran % (Auto) 0.7 H Neut % (Auto) 74.9 H Lymph % (Auto) 11.6 L [place] % (Auto) 6.9 Eos % (Auto) 5.3 H Baso % (Auto) 0.6 Lymph # (Auto) 1.01 [place] # (Auto) 0.6 Eos # (Auto) 0.5 H Baso # (Auto) 0.1 Abs Immat Gran (auto) 0.06 H Absolute Neuts (auto) 6.5 Absolute Nucleated RBC 0.000 Nucleated RBC % 0.0 Sodium 139 Potassium 3.6 Chloride 104 Carbon Dioxide 26 Anion Gap 9 BUN 36 H D Creatinine 1.55 H Estim Creat Clear Calc 33 Estimated GFR 32 L Glucose 106 Calcium 8.6 Magnesium 1.4 L Total Bilirubin 1.1 AST 25 ALT 62 H Alkaline Phosphatase 146 H Total Protein 6.5 Albumin 3.7
[2025-05-20] MEDS: DOXYCYCLINE HYCLATE 100 MG TABLET PO (21:00)
[2025-05-21] VITALS (10 sets, daily range): BP systolic 120–127; BP diastolic 63–68; PULSE 73–109; RESP 14–16; TEMP 36.8; O2SAT 97–98
[2025-05-21 03:50] LABS: Hematocrit 36.0 % (37.0-47.0); Hemoglobin 11.6 g/dL (12.0-15.0); Immature Granulocyte Percent A 0.3 % (0-0.5); Lymphocytes Absolute Auto 1.27 K/mm3 (0.9-3.2); Mean Corpuscular HGB Conc 32.2 g/dl (32-36); Mean Corpuscular Hemoglobin 26.5 pg (26-34); Mean Corpuscular Volume 82.4 fl (80-100); Nucleated Red Blood Cells Absolute Auto 0.000 K/mm3 (0.0-0.012); Nucleated Red Blood Cells Perc 0.0 % (0.0-0.2); Platelet Count Result 141 k/mm3 (150-375); Red Blood Count 4.37 M/mm3 (4.2-5.4); White Blood Count 7.8 K/mm3 (4.5-10.0)
[2025-05-21 04:01] LABS: Alanine Aminotransferase 47 U/L (6-35); Albumin Level 3.6 g/dL (3.5-5.1); Alkaline Phosphatase 150 U/L (38-126); Anion Gap 8 mmol/L (4-12); Aspartate Amino Transferase 30 U/L (14-36); Bilirubin,Total 1.0 mg/dL (0.2-1.3); Blood Urea Nitrogen 33 mg/dL (7-17); Calcium 8.7 mg/dL (8.4-10.2); Carbon Dioxide 28 mmol/L (22-30); Chloride 101 mmol/L (98-107); Estimated CRCL calculation 34 ml/min; Estimated Glomerular Filt Rate 34; Glucose 118 mg/dL (65-110); Magnesium 1.5 mg/dL (1.6-2.3); Potassium 3.9 mmol/L (3.4-5.0); Sodium 137 mmol/L (137-145); Total Protein 6.5 g/dL (6.3-8.2)
[2025-05-21] MEDS: METOPROLOL TARTRATE 25 MG TABLET PO ×2 (09:29→20:11)
[2025-05-21] MEDS: ATORVASTATIN 20 MG TABLET BY MOUTH (09:29)
[2025-05-21] MEDS: CEFDINIR 300 MG CAPSULE PO ×2 (09:30→20:13)
[2025-05-21] MEDS: PREGABALIN (*CRX) 75 MG CAPSULE 150 MG PO ×2 (09:30→20:13)
[2025-05-21] MEDS: APIXABAN 5 MG TABLET PO ×2 (09:31→20:10)
[2025-05-21] MEDS: FUROSEMIDE 40 MG TABLET PO ×2 (09:31→17:15)
[2025-05-21] MEDS: AMIODARONE HCL 200 MG TABLET PO ×2 (09:31→17:14)
[2025-05-21] MEDS: PANTOPRAZOLE 40 MG TABLET PO (09:31)
--- NOTE | 2025-05-21 09:37 | PM.PNNEP ---
Progress Note: A&P Assessment and Plan (1) Acute kidney injury: Code(s): N17.9 - Acute kidney failure, unspecified Status: Acute Assessment and Plan: back to baseline as noted by labs on admission (creatinine 2.34mg/dL) suspect multifactorial etiology: relative hypotension Afib with RVR CHF/cardiomyopathy infection (pneumonia +/- UTI) NSAID use prerenal factors other(?) evaluation to date: renal u/s with no hydronephrosis urine electrolytes prerenal (likely a manifestation of depressed EF) urine eosinophil negative CPK normal no significant proteinuria optimize hemodynamics follow trend of repeat labs and UOP (2) Stage 3b chronic kidney disease: Code(s): N18.32 - Chronic kidney disease, stage 3b Status: Chronic Assessment and Plan: baseline creatinine runs ~ 1.3 - 1.7mg/dl for the last couple of years presumably secondary to hypertension, vascular disease, and age-related change suspect new cardiomyopathy playing a role as well... (3) Shortness of breath: Code(s): R06.02 - Shortness of breath Status: Acute Assessment and Plan: clinical improvement noted suspect due to: pneumonia Afib with RVR CHF/cardiomyopathy/plerual effusions other(?) continue ongoing interventions as outlined follow respiratory status (4) New onset a-fib: Code(s): I48.91 - Unspecified atrial fibrillation Status: Acute Assessment and Plan: new finding Cardiology following attempts at rate control strategy not very successful on anticoagulation s/p CYRUS + cardioversion earlier today (on 05/17) now in NSR on amiodarone and metoprolol follow telemetry (5) Cardiomyopathy: Code(s): I42.9 - Cardiomyopathy, unspecified Status: Acute Assessment and Plan: as noted by Echo (on 05/16): left ventricular systolic function is severely globally reduced estimated at 25-30% left ventricular diastolic function is abnormal right ventricular systolic function is at least mildly reduced and with abnormal TAPSE 1.2 cm moderate to severe mitral valve regurgitation mild to moderate tricuspid valve regurgitation mild pulmonary hypertension, estimated pulmonary arterial systolic pressure is 41 mmHg trace pulmonic regurgitation. Cardiology following PRN IV diuretics to optimize volume status started on oral diuretics GMDT as tolerated by hemodynamics and renal function (6) Pneumonia: Code(s): J18.9 - Pneumonia, unspecified organism Status: Acute Assessment and Plan: as suggested by admission CXR supplemental oxygen follow culutre data on antibiotics (7) Anemia: Code(s): D64.9 - Anemia, unspecified Status: Acute Assessment and Plan: due to PETER, CKD, and acute illness no need for KAYLYNN follow trend of H/H (8) Essential (primary) hypertension: Code(s): I10 - Essential (primary) hypertension Status: Acute Assessment and Plan: running on the soft side since admission home BP medications on hold follow trend of hemodynamics Not much else to add -- will continue to follow from a distance. Subjective Date/time seen: 05/21/25 09:37 Interval history: Follow-up for acute kidney injury/acute renal failure on chronic kidney disease. Renal function/creatinine continues to improve if not stabilize by trend of labs; no apparent distress noted at the time of my visit; no issues/events overnight or earlier this morning; respiratory status/breathing continues to improve as well. Exam Narrative: General: elderly but WD/WN female in NAD Heart: normal S1 and S2; no rub Lungs: decreased at bases Abdomen: soft, nontender, nondistended, positive bowel sounds Extremities: no cyanosis or clubbing; no edema Skin: no nodules Objective Data Vital Signs Vital Signs: Vital Signs Temp Pulse Resp BP Pulse Ox O2 Del Method FiO2 05/21/25 09:31 109 H 05/21/25 09:29 109 H 05/21/25 08:00 100 05/21/25 08:00 98.3 F 104 H 16 120/63 97 05/21/25 03:26 73 05/21/25 00:00 73 05/20/25 23:51 98.0 F 73 20 126/66 97 05/20/25 21:01 68 05/20/25 20:45 90 Room Air 21 05/20/25 20:00 84 05/20/25 20:00 75 20 98 Room Air 40 05/20/25 17:36 75 05/20/25 16:00 98.5 F 76 20 118/60 98 05/20/25 16:00 72 05/20/25 13:39 Room Air Intake/Output Intake/Output: Intake & Output 05/18/25 05/19/25 05/20/25 05/21/25 23:59 23:59 23:59 23:59 Intake Total 1451.4 1466.6 1440 880 Output Total 2250 5850 1950 1700 [facility]798.6 -4383.4 -510 -820 Meds/Results Medications: Active Medications Generic Name Dose Route Start Last Admin Trade Name Freq PRN Reason Stop Dose Admin Acetaminophen 650 mg 05/17/25 21:12 05/17/25 21:17 Acetaminophen 325 Mg Tablet PO 650 mg Q6H PRN Administration Mild Pain (1-3) or Fever Amiodarone HCl 200 mg 05/19/25 17:00 05/21/25 09:31 Amiodarone Hcl 200 Mg Tablet PO 200 mg BID TAIWO Administration Apixaban 5 mg 05/17/25 21:00 05/21/25 09:31 Apixaban 5 Mg Tablet PO 5 mg Q12HR TAIWO Administration Atorvastatin Calcium 20 mg 05/16/25 09:00 05/21/25 09:29 Atorvastatin 20 Mg Tablet BY MOUTH 20 mg DAILY TAIWO Administration Cefdinir 300 mg 05/20/25 09:00 05/21/25 09:30 Cefdinir 300 Mg Capsule PO 05/23/25 08:59 300 mg Q12HR TAIWO Administration Furosemide 40 mg 05/19/25 09:30 05/21/25 09:31 Furosemide 40 Mg Tablet PO 40 mg BID TAIWO Administration Metoprolol Tartrate 25 mg 05/16/25 21:00 05/21/25 09:29 Metoprolol Tartrate 25 Mg Tablet PO 25 mg Q12HR TAIWO Administration Pantoprazole Sodium 40 mg 05/17/25 09:00 05/21/25 09:31 Pantoprazole 40 Mg Tablet PO 40 mg QAM TAIWO Administration Pregabalin 150 mg 05/18/25 09:10 05/21/25 09:30 Pregabalin (*Crx) 75 Mg Capsule PO 150 mg Q12HR TAIWO Administration Radiology Results: ITS Impressions Renal Ultrasound 05/16/25 11:23 IMPRESSION: 1. Increasing mild right renal atrophy. No hydronephrosis in either kidney. Venous Doppler Study 05/16/25 11:29 IMPRESSION: 1. No deep venous thrombosis in either lower limb. Chest X-Ray 05/19/25 14:18 Impression: CHF. Labs Labs: Laboratory Tests 05/21/25 03:43 05/21/25 03:43 Calcium 8.7 Magnesium 1.5 L Total Bilirubin 1.0 AST 30 ALT 47 H Alkaline Phosphatase 150 H Total Protein 6.5 Albumin 3.6
--- NOTE | 2025-05-21 09:37 | P.PNNP_ITS ---
Progress Note: A&P Assessment and Plan (1) Acute kidney injury: Code(s): N17.9 - Acute kidney failure, unspecified Status: Acute Assessment and Plan: * back to baseline * as noted by labs on admission (creatinine 2.34mg/dL) * suspect multifactorial etiology: * relative hypotension * Afib with RVR * CHF/cardiomyopathy * infection (pneumonia +/- UTI) * NSAID use * prerenal factors * other(?) * evaluation to date: * renal u/s with no hydronephrosis * urine electrolytes prerenal (likely a manifestation of depressed EF) * urine eosinophil negative * CPK normal * no significant proteinuria * optimize hemodynamics * follow trend of repeat labs and UOP (2) Stage 3b chronic kidney disease: Code(s): N18.32 - Chronic kidney disease, stage 3b Status: Chronic Assessment and Plan: * baseline creatinine runs ~ 1.3 - 1.7mg/dl for the last couple of years * presumably secondary to hypertension, vascular disease, and age-related change * suspect new cardiomyopathy playing a role as well... (3) Shortness of breath: Code(s): R06.02 - Shortness of breath Status: Acute Assessment and Plan: * clinical improvement noted * suspect due to: * pneumonia * Afib with RVR * CHF/cardiomyopathy/plerual effusions * other(?) * continue ongoing interventions as outlined * follow respiratory status (4) New onset a-fib: Code(s): I48.91 - Unspecified atrial fibrillation Status: Acute Assessment and Plan: * new finding * Cardiology following * attempts at rate control strategy not very successful * on anticoagulation * s/p CYRUS + cardioversion earlier today (on 05/17) * now in NSR * on amiodarone and metoprolol * follow telemetry (5) Cardiomyopathy: Code(s): I42.9 - Cardiomyopathy, unspecified Status: Acute Assessment and Plan: * as noted by Echo (on 05/16): * left ventricular systolic function is severely globally reduced estimated at 25-30% * left ventricular diastolic function is abnormal * right ventricular systolic function is at least mildly reduced and with abnormal TAPSE 1.2 cm * moderate to severe mitral valve regurgitation * mild to moderate tricuspid valve regurgitation * mild pulmonary hypertension, estimated pulmonary arterial systolic pressure is 41 mmHg * trace pulmonic regurgitation. * Cardiology following * PRN IV diuretics to optimize volume status * started on oral diuretics * GMDT as tolerated by hemodynamics and renal function (6) Pneumonia: Code(s): J18.9 - Pneumonia, unspecified organism Status: Acute Assessment and Plan: * as suggested by admission CXR * supplemental oxygen * follow culutre data * on antibiotics (7) Anemia: Code(s): D64.9 - Anemia, unspecified Status: Acute Assessment and Plan: * due to PETER, CKD, and acute illness * no need for KAYLYNN * follow trend of H/H (8) Essential (primary) hypertension: Code(s): I10 - Essential (primary) hypertension Status: Acute Assessment and Plan: * running on the soft side since admission * home BP medications on hold * follow trend of hemodynamics Not much else to add -- will continue to follow from a distance. L Subjective Date/time seen: 05/21/25 09:37 Interval history: Follow-up for acute kidney injury/acute renal failure on chronic kidney disease. Renal function/creatinine continues to improve if not stabilize by trend of labs; no apparent distress noted at the time of my visit; no issues/events overnight or earlier this morning; respiratory status/breathing continues to improve as well. Exam 2 Narrative: General: elderly but WD/WN female in NAD Heart: normal S1 and S2; no rub Lungs: decreased at bases Abdomen: soft, nontender, nondistended, positive bowel sounds Extremities: no cyanosis or clubbing; no edema Skin: no nodules Objective Data Vital Signs Vital Signs: Vital Signs Temp Pulse Resp BP Pulse Ox O2 Del Method FiO2 05/21/25 09:31 109 H 05/21/25 09:29 109 H 05/21/25 08:00 100 05/21/25 08:00 98.3 F 104 H 16 120/63 97 05/21/25 03:26 73 05/21/25 00:00 73 05/20/25 23:51 98.0 F 73 20 126/66 97 05/20/25 21:01 68 05/20/25 20:45 90 Room Air 21 05/20/25 20:00 84 05/20/25 20:00 75 20 98 Room Air 40 05/20/25 17:36 75 05/20/25 16:00 98.5 F 76 20 118/60 98 05/20/25 16:00 72 05/20/25 13:39 Room Air Intake/Output Intake/Output: Intake & Output 05/18/25 05/19/25 05/20/25 05/21/25 23:59 23:59 23:59 23:59 Intake Total 1451.4 1466.6 1440 880 Output Total 2250 5850 1950 1700 Balance -798.6 -4383.4 -510 -820 Meds/Results Medications: Active Medications Generic Name Dose Route Start Last Admin Trade Name Freq PRN Reason Stop Dose Admin Acetaminophen 650 mg 05/17/25 21:12 05/17/25 21:17 Acetaminophen 325 Mg Tablet PO 650 mg Q6H PRN Administration Mild Pain (1-3) or Fever Amiodarone HCl 200 mg 05/19/25 17:00 05/21/25 09:31 Amiodarone Hcl 200 Mg Tablet PO 200 mg BID TAIWO Administration Apixaban 5 mg 05/17/25 21:00 05/21/25 09:31 Apixaban 5 Mg Tablet PO 5 mg Q12HR TAIWO Administration Atorvastatin Calcium 20 mg 05/16/25 09:00 05/21/25 09:29 Atorvastatin 20 Mg Tablet BY MOUTH 20 mg DAILY TAIWO Administration Cefdinir 300 mg 05/20/25 09:00 05/21/25 09:30 Cefdinir 300 Mg Capsule PO 05/23/25 08:59 300 mg Q12HR TAIWO Administration Furosemide 40 mg 05/19/25 09:30 05/21/25 09:31 Furosemide 40 Mg Tablet PO 40 mg BID TAIWO Administration Metoprolol Tartrate 25 mg 05/16/25 21:00 05/21/25 09:29 Metoprolol Tartrate 25 Mg Tablet PO 25 mg Q12HR TAIWO Administration Pantoprazole Sodium 40 mg 05/17/25 09:00 05/21/25 09:31 Pantoprazole 40 Mg Tablet PO 40 mg QAM TAIWO Administration Pregabalin 150 mg 05/18/25 09:10 05/21/25 09:30 Pregabalin (*Crx) 75 Mg Capsule PO 150 mg Q12HR TAIWO Administration Radiology Results: ITS Impressions Renal Ultrasound 05/16/25 11:23 IMPRESSION: 1. Increasing mild right renal atrophy. No hydronephrosis in either kidney. Venous Doppler Study 05/16/25 11:29 IMPRESSION: 1. No deep venous thrombosis in either lower limb. Chest X-Ray 05/19/25 14:18 Impression: CHF. Labs Labs: Laboratory Tests 05/21/25 03:43 05/21/25 03:43 Calcium 8.7 Magnesium 1.5 L Total Bilirubin 1.0 AST 30 ALT 47 H Alkaline Phosphatase 150 H Total Protein 6.5 Albumin 3.6
[2025-05-21] MEDS: MAGNESIUM SULF 2 GM/WATER 50ML 2 GM/50 ML BAG IVPB (09:51)
--- NOTE | 2025-05-21 12:44 | PCOTNOTE ---
The patient treatment was not able to be completed. Life Vest Rep present. Will plan to continue treatment per plan of care.
--- NOTE | 2025-05-21 13:21 | P.PNIM_ITS ---
Progress Note: A&P Assessment and Plan (1) Pneumonia: Code(s): J18.9 - Pneumonia, unspecified organism Status: Acute (2) New onset a-fib: Code(s): I48.91 - Unspecified atrial fibrillation Status: Acute (3) Essential hypertension: Code(s): I10 - Essential (primary) hypertension Status: Acute (4) Hyperlipidemia: Qualifiers: Hyperlipidemia type: mixed hyperlipidemia Qualified Code(s): E78.2 - Mixed hyperlipidemia Code(s): E78.5 - Hyperlipidemia, unspecified Status: Acute (5) Acute kidney injury: Code(s): N17.9 - Acute kidney failure, unspecified Status: Acute (6) Hypomagnesemia: Code(s): E83.42 - Hypomagnesemia Status: Acute Plan This is a 79-year-old female patient who has not been feeling well for the last week however shortness of breath gotten progressively worse over the last 24 hours. She denies any chest pain but is more short of breath with exertion. She denies any fever or chills. Her white count was elevated to be 10.5. H&H is 11.1 and 35.2. Arterial blood gases pH 7.303 pCO2 was 24.7 and bicarb 12. Patient was started on a BiPAP due to her shortness of breath. Chloride 110, carbon dioxide 12, anion gap 15, BUN 54, creatinine 2.34. Lactic initially was 2.2 and came down to 1.9. Troponin negative x2. BNP 01670. Magnesium was low at 1.1. Urine is cloudy with 2+ protein, 1+ leukocyte esterase, and trace ketones. Viral serology is negative. Chest x-ray was read as bilateral lower lobe infiltrate and pleural effusions are noted. Her EKG was read as atrial fibrillation with rapid ventricular response with a heart rate of 134. She was started on a Zithromax and Rocephin for the infiltrates. She was started on a Cardizem drip and heparin drip in the emergency room. She was given IV magnesium, given a neb treatment as well as IV fluids. The patient is being admitted to IMU observation on the date of service of 05/16/2024. AFib with RVR cardiology consulted initially started on Cardizem drip. Which has been discontinued due to hypotension. Cardiology Recommended OPAL/cardioversion. New onset status post opal/cardioversion with successful conversion to sinus rhythm. On beta-celi. Now initiated amiodarone drip. Which will be switched to oral amiodarone Pneumonia treated with ceftriaxone and doxycycline. Chest x-ray with bilateral lower lobe infiltrate and pleural effusions. Switched to oral antibiotics. Finish the course as ordered hypoxic resp failure: on oxygen supp. bipap prn which will be discontinued now. Off oxygen now PETER with creatinine of 2.3 baseline creatinine 1.4. Admission creatinine of 2.3. Renal ultrasound negative for hydronephrosis. Likely cardiorenal syndrome will continue to monitor. Renal has been consulted. Kidney function continues to improve and back to baseline now. Diuresis as ordered by Nephrology Newly diagnosed severe global LV systolic dysfunction ejection fraction 25-30% [id number] TR moderate to severe MR moderate to severe left atrial enlargement. Ischemic evaluation when clinically stable. LifeVest at discharge which is getting fitted today. Intermittent diuresis per Nephrology currently on Lasix 40 b.i.d.. Metabolic acidosis improved venous duplex negative Hypertension Hyperlipidemia Lactic acidosis UTI mild WBC in urine 6-10. DVT prophylaxis heparin drip now switched to apixaban Code status full code Disposition PT OT suggested SNF placement. Care coordination on board for placement. DC likely in a.m. once placement is finalized Subjective Date/time seen: 05/21/25 13:21 Interval history: No overnight events. Breathing is better. No leg swelling. No chest pain. Labs reviewed. Discussed with family at bedside Review of Systems Review of Systems: All systems reviewed & are unremarkable except as noted in HPI and below Exam Narrative: Patient is comfortable, NAD HEENT: eyes are clear and none icteric LUNGS: Diminished breath sounds bilaterally no wheezes HEART: RR S1S2 ABD: BS+, Soft and nontender Lower extremities: no edema SKIN: nonjaundiced Neuro: grossly intact. Alert and oriented x3. Objective Data Vital Signs Vital Signs: Vital Signs - 24 hr 05/20/25 13:39 05/20/25 16:00 05/20/25 16:00 Temperature 98.5 F Pulse Rate 72 76 Respiratory Rate 20 Blood Pressure 118/60 Pulse Oximetry 98 Oxygen Delivery Room Air Fraction of Inspired Oxygen 05/20/25 17:36 05/20/25 20:00 05/20/25 20:00 Temperature Pulse Rate 75 75 84 Respiratory Rate 20 Blood Pressure Pulse Oximetry 98 Oxygen Delivery Room Air Fraction of Inspired Oxygen 40 05/20/25 20:45 05/20/25 21:01 05/20/25 23:51 Temperature 98.0 F Pulse Rate 68 73 Respiratory Rate 20 Blood Pressure 126/66 Pulse Oximetry 90 97 Oxygen Delivery Room Air Fraction of Inspired Oxygen 21 05/21/25 00:00 05/21/25 03:26 05/21/25 08:00 Temperature 98.3 F Pulse Rate 73 73 104 H Respiratory Rate 16 Blood Pressure 120/63 Pulse Oximetry 97 Oxygen Delivery Fraction of Inspired Oxygen 05/21/25 08:00 05/21/25 09:29 05/21/25 09:31 Temperature Pulse Rate 100 109 H 109 H Respiratory Rate Blood Pressure Pulse Oximetry Oxygen Delivery Fraction of Inspired Oxygen 05/21/25 12:00 Temperature Pulse Rate 102 H Respiratory Rate Blood Pressure Pulse Oximetry Oxygen Delivery Fraction of Inspired Oxygen Intake/Output Intake/Output: Intake & Output 05/18/25 05/19/25 05/20/25 05/21/25 23:59 23:59 23:59 23:59 Intake Total 1451.4 1466.6 1440 1120 Output Total 2250 5850 1950 1700 [facility]798.6 -4383.4 -510 -580 Meds/Results Medications: Active Medications Generic Name Dose Route Start Last Admin Trade Name Freq PRN Reason Stop Dose Admin Acetaminophen 650 mg 05/17/25 21:12 05/17/25 21:17 Acetaminophen 325 Mg Tablet PO 650 mg Q6H PRN Administration Mild Pain (1-3) or Fever Amiodarone HCl 200 mg 05/19/25 17:00 05/21/25 09:31 Amiodarone Hcl 200 Mg Tablet PO 200 mg BID TAIWO Administration Apixaban 5 mg 05/17/25 21:00 05/21/25 09:31 Apixaban 5 Mg Tablet PO 5 mg Q12HR TAIWO Administration Atorvastatin Calcium 20 mg 05/16/25 09:00 05/21/25 09:29 Atorvastatin 20 Mg Tablet BY MOUTH 20 mg DAILY TAIWO Administration Cefdinir 300 mg 05/20/25 09:00 05/21/25 09:30 Cefdinir 300 Mg Capsule PO 05/23/25 08:59 300 mg Q12HR TAIWO Administration Furosemide 40 mg 05/19/25 09:30 05/21/25 09:31 Furosemide 40 Mg Tablet PO 40 mg BID TAIWO Administration Metoprolol Tartrate 25 mg 05/16/25 21:00 05/21/25 09:29 Metoprolol Tartrate 25 Mg Tablet PO 25 mg Q12HR TAIWO Administration Pantoprazole Sodium 40 mg 05/17/25 09:00 05/21/25 09:31 Pantoprazole 40 Mg Tablet PO 40 mg QAM TAIWO Administration Pregabalin 150 mg 05/18/25 09:10 05/21/25 09:30 Pregabalin (*Crx) 75 Mg Capsule PO 150 mg Q12HR TAIWO Administration Radiology Results: ITS Impressions Renal Ultrasound 05/16/25 11:23 IMPRESSION: 1. Increasing mild right renal atrophy. No hydronephrosis in either kidney. Venous Doppler Study 05/16/25 11:29 IMPRESSION: 1. No deep venous thrombosis in either lower limb. Chest X-Ray 05/19/25 14:18 Impression: CHF. Labs Labs: Laboratory Results - last 24 hr 05/21/25 03:43 WBC 7.8 RBC 4.37 Hgb 11.6 L Hct 36.0 L MCV 82.4 MCH 26.5 MCHC 32.2 RDW 17.0 H Plt Count 141 L MPV 10.5 H Immature Gran % (Auto) 0.3 Neut % (Auto) 69.0 Lymph % (Auto) 16.3 L [place] % (Auto) 7.8 Eos % (Auto) 6.1 H Baso % (Auto) 0.5 Lymph # (Auto) 1.27 [place] # (Auto) 0.6 Eos # (Auto) 0.5 H Baso # (Auto) 0.0 Abs Immat Gran (auto) 0.02 Absolute Neuts (auto) 5.4 Absolute Nucleated RBC 0.000 Nucleated RBC % 0.0 Sodium 137 Potassium 3.9 Chloride 101 Carbon Dioxide 28 Anion Gap 8 BUN 33 H Creatinine 1.47 H Estim Creat Clear Calc 34 Estimated GFR 34 L Glucose 118 H Calcium 8.7 Magnesium 1.5 L Total Bilirubin 1.0 AST 30 ALT 47 H Alkaline Phosphatase 150 H Total Protein 6.5 Albumin 3.6
[2025-05-21] MEDS: DOCUSATE SODIUM 100 MG CAPSULE PO (15:11)
--- NOTE | 2025-05-21 15:13 | PCOTNOTE ---
Attempted to see Patient at this time. Patient's daughter just finished assisting Patienyt with washing upo due to having a rash from the Life vest. Patient is declining more therapy at this time and requested OT come back tomorrow.
[2025-05-21] MEDS: HYDROCORTISONE 1% 30 GM CREAM 1 APPLIC TOPICAL (17:15)
--- NOTE | 2025-05-21 18:43 | PC.NURSE ---
On 05/21/25, the student, [Olvin Conte ], provided care and completed [facility] documentation on this patient. I have reviewed the student's documentation and agree with the findings.
--- NOTE | 2025-05-21 19:43 | ECG_ITS ---
Test Date: 2025-05-21 19:50:23 Measurements Intervals [place] Rate: 99 P: 3 IA: 155 QRS: -38 QRSD: 128 T: -14 QT: 402 QTc: 518 Interpretive Statements SINUS RHYTHM LEFT AXIS DEVIATION RIGHT BUNDLE BRANCH BLOCK ABNORMAL ECG Compared to ECG 05/17/2025 09:35:39 HEART RATE HAS INCREASED Electronically Signed On 05-21-2025 20:11:38 CDT by Jorge Quevedo D.O.
[2025-05-21] MEDS: ACETAMINOPHEN 325 MG TABLET 650 MG PO (20:10)
[2025-05-22] VITALS (14 sets, daily range): BP systolic 104–115; BP diastolic 52–70; PULSE 70–103; RESP 16–18; TEMP 36.5–36.9; O2SAT 93–100
[2025-05-22 04:19] LABS: Hematocrit 36.4 % (37.0-47.0); Hemoglobin 11.6 g/dL (12.0-15.0); Mean Corpuscular HGB Conc 31.9 g/dl (32-36); Mean Corpuscular Hemoglobin 26.4 pg (26-34); Mean Corpuscular Volume 82.7 fl (80-100); Platelet Count Result 133 k/mm3 (150-375); Red Blood Count 4.40 M/mm3 (4.2-5.4); White Blood Count 8.2 K/mm3 (4.5-10.0)
[2025-05-22 04:42] LABS: Anion Gap 7 mmol/L (4-12); Blood Urea Nitrogen 36 mg/dL (7-17); Calcium 9.0 mg/dL (8.4-10.2); Carbon Dioxide 30 mmol/L (22-30); Chloride 99 mmol/L (98-107); Estimated CRCL calculation 33 ml/min; Estimated Glomerular Filt Rate 34; Glucose 116 mg/dL (65-110); Magnesium 1.8 mg/dL (1.6-2.3); Potassium 3.8 mmol/L (3.4-5.0); Sodium 136 mmol/L (137-145)
[2025-05-22] MEDS: AMIODARONE HCL 200 MG TABLET PO ×2 (08:19→17:25)
[2025-05-22] MEDS: PREGABALIN (*CRX) 75 MG CAPSULE 150 MG PO ×2 (08:19→20:22)
[2025-05-22] MEDS: DOCUSATE SODIUM 100 MG CAPSULE PO ×2 (08:20→20:23)
[2025-05-22] MEDS: METOPROLOL TARTRATE 25 MG TABLET PO ×2 (08:21→20:22)
[2025-05-22] MEDS: CEFDINIR 300 MG CAPSULE PO ×2 (08:21→20:22)
[2025-05-22] MEDS: FUROSEMIDE 40 MG TABLET PO ×2 (08:21→17:26)
[2025-05-22] MEDS: APIXABAN 5 MG TABLET PO ×2 (08:21→20:22)
[2025-05-22] MEDS: PANTOPRAZOLE 40 MG TABLET PO (08:21)
[2025-05-22] MEDS: ATORVASTATIN 20 MG TABLET BY MOUTH (08:22)
[2025-05-22] MEDS: HYDROCORTISONE 1% 30 GM CREAM 1 APPLIC TOPICAL (08:22)
--- NOTE | 2025-05-22 10:35 | PCNWS ---
Weekly nutritional screen. Patient is tolerating current Heart Healthy diet with adequate intake, 100% all meals. No weight loss reported. No nutritional needs at this time.
[2025-05-22] MEDS: ACETAMINOPHEN 325 MG TABLET 650 MG PO ×2 (13:15→23:04)
--- NOTE | 2025-05-22 14:29 | P.PNIM_ITS ---
Progress Note: A&P Assessment and Plan (1) New onset a-fib: Code(s): I48.91 - Unspecified atrial fibrillation Status: Acute Assessment and Plan: AFib with RVR cardiology consulted initially started on Cardizem drip. Which has been discontinued due to hypotension. Cardiology recommended OPAL/cardioversion. New onset status post opal/cardioversion with successful conversion to sinus rhythm. On beta-celi. Now initiated amiodarone drip. Which will be switched to oral amiodarone Maintaining sinus mechanism. Continue Eliquis (2) Pneumonia: Code(s): J18.9 - Pneumonia, unspecified organism Status: Acute Assessment and Plan: CXR showing bilateral lower lobe infiltrates and pleurla effusion. WBC was essentially normal since admission. Pneumonia treated with ceftriaxone and doxycycline. Switched to oral antibiotics. Finish the course as ordered (3) Acute respiratory failure: Code(s): J96.00 - Acute respiratory failure, unspecified whether with hypoxia or hypercapnia Status: Acute Assessment and Plan: Patient with hypoxic resp failure. ABG 7.30/ on FiO2 40%. Venous duplex negative for DVT She was on oxygen supp. bipap prn which has now been discontinued Off oxygen now (4) Cardiomyopathy: Code(s): I42.9 - Cardiomyopathy, unspecified Status: Acute Assessment and Plan: Newly diagnosed severe global LV systolic dysfunction ejection fraction 25-30% with diastolic dysfunction, [id number] TR, moderate to severe MR, moderate to severe left atrial enlargement. Ischemic evaluation when clinically stable. LifeVest at discharge (5) Acute kidney injury: Code(s): N17.9 - Acute kidney failure, unspecified Status: Acute Assessment and Plan: PETER with creatinine of 2.3. Baseline creatinine 1.4. Renal ultrasound negative for hydronephrosis. Likely cardiorenal syndrome Nephrology wsa consulted. Kidney function continues to improve and back to baseline now. Diuresis as ordered by Nephrology (6) Essential hypertension: Code(s): I10 - Essential (primary) hypertension Status: Acute Assessment and Plan: Patient's blood pressure was reviewed on 05/22 Blood pressure remains well controlled. Will continue to monitor (7) Hyperlipidemia: Qualifiers: Hyperlipidemia type: mixed hyperlipidemia Qualified Code(s): E78.2 - Mixed hyperlipidemia Code(s): E78.5 - Hyperlipidemia, unspecified Status: Acute Assessment and Plan: Stable. Continue Lipitor (8) Hypomagnesemia: Code(s): E83.42 - Hypomagnesemia Status: Acute Assessment and Plan: Mag 1.8 Follow Plan Rash - Possibly related to irritation from the life vest. Better with topical s teroids. Follow. Back pain - acute flare of a chronic problem. Symptomatic care with heating pad DVT prophylaxis - apixaban Code status full code Disposition PT OT suggested SNF placement. Care coordination on board for placement. DC when SNF arranged Subjective Date/time seen: 05/22/25 14:29 Interval history: 79yo female with CKD, HTN and GERD who was not feeling well for about one week who developed worsening shortness of breath prior to admisison. Assuming care. Chart reviewed. Patient feeling well. She is having low back pain which is chronic for her. No dysuria or hematuria. No recent fall. No chest pain. Last night she did have pain under her right breast. She cannot tell how long it lasted. It was not pleuritic. She has a slight cough. RN states rash is improved with steroid cream Exam Narrative: AF 97.7 107/52 85 16 100% ra Gen - NARD sitting up in chair Chest - CTA bilaterally. CV - RRR S1/S2. Telemetry showing no significant dysrhythmias Abd - soft, NT/ND, +BS Back - left lower back pain to palpation. No C/T/L/S midline tenderness. No CVA tenderness Ext - no pedal edema Neuro - nonfocal. AOx4 Psych - normal mood Skin - splotchy blanchable patchy rash midback, under bilateral breast that extend beyond skin contact with scale. Objective Data Vital Signs Vital Signs: Vital Signs - 24 hr 05/21/25 16:00 05/21/25 16:00 05/21/25 17:14 Temperature 98.2 F Pulse Rate 91 89 97 Respiratory Rate 14 Blood Pressure 127/68 Pulse Oximetry 98 05/21/25 20:00 05/21/25 20:11 05/22/25 00:00 Temperature 98.5 F Pulse Rate 85 84 103 H Respiratory Rate 18 Blood Pressure 115/70 Pulse Oximetry 97 05/22/25 00:00 05/22/25 04:00 05/22/25 07:58 Temperature 97.8 F Pulse Rate 101 H 70 102 H Respiratory Rate 18 Blood Pressure 113/59 L Pulse Oximetry 100 05/22/25 08:00 05/22/25 08:19 05/22/25 08:21 Temperature Pulse Rate 101 H 92 92 Respiratory Rate Blood Pressure Pulse Oximetry 05/22/25 11:48 05/22/25 12:00 Temperature 97.7 F Pulse Rate 86 85 Respiratory Rate 16 Blood Pressure 107/52 L Pulse Oximetry 100 Intake/Output Intake/Output: Intake & Output 05/19/25 05/20/25 05/21/25 05/22/25 23:59 23:59 23:59 23:59 Intake Total 1466.6 1440 1910 830 Output Total 5850 1950 2100 [facility] -[phone] Meds/Results Medications: Active Medications Generic Name Dose Route Start Last Admin Trade Name Freq PRN Reason Stop Dose Admin Acetaminophen 650 mg 05/17/25 21:12 05/22/25 13:15 Acetaminophen 325 Mg Tablet PO 650 mg Q6H PRN Administration Mild Pain (1-3) or Fever Amiodarone HCl 200 mg 05/19/25 17:00 05/22/25 08:19 Amiodarone Hcl 200 Mg Tablet PO 200 mg BID TAIWO Administration Apixaban 5 mg 05/17/25 21:00 05/22/25 08:21 Apixaban 5 Mg Tablet PO 5 mg Q12HR TAIWO Administration Atorvastatin Calcium 20 mg 05/16/25 09:00 05/22/25 08:22 Atorvastatin 20 Mg Tablet BY MOUTH 20 mg DAILY TAIWO Administration Cefdinir 300 mg 05/20/25 09:00 05/22/25 08:21 Cefdinir 300 Mg Capsule PO 05/23/25 08:59 300 mg Q12HR TAIWO Administration Docusate Sodium 100 mg 05/21/25 14:25 05/22/25 08:20 Docusate Sodium 100 Mg Capsule PO 100 mg Q12HR TAIWO Administration Furosemide 40 mg 05/19/25 09:30 05/22/25 08:21 Furosemide 40 Mg Tablet PO 40 mg BID TAIWO Administration Hydrocortisone 1 applic 05/21/25 21:00 05/22/25 08:22 Hydrocortisone 1% 30 Gm Cream TOPICAL 1 applic Q12HR TAIWO Administration Metoprolol Succinate 50 mg 05/23/25 09:00 Metoprolol Succinate Ext Rel 50 Mg Tabcr PO QAM [facility] Metoprolol Tartrate 25 mg 05/22/25 21:00 Metoprolol Tartrate 25 Mg Tablet PO 05/22/25 21:01 ONCE ONE Pantoprazole Sodium 40 mg 05/17/25 09:00 05/22/25 08:21 Pantoprazole 40 Mg Tablet PO 40 mg QAM TAIWO Administration Pregabalin 150 mg 05/18/25 09:10 05/22/25 08:19 Pregabalin (*Crx) 75 Mg Capsule PO 150 mg Q12HR TAIWO Administration Radiology Results: ITS Impressions Renal Ultrasound 05/16/25 11:23 IMPRESSION: 1. Increasing mild right renal atrophy. No hydronephrosis in either kidney. Venous Doppler Study 05/16/25 11:29 IMPRESSION: 1. No deep venous thrombosis in either lower limb. Chest X-Ray 05/19/25 14:18 Impression: CHF. Labs Labs: Laboratory Results - last 24 hr 05/16/25 05/22/25 01:51 03:57 WBC 8.2 RBC 4.40 Hgb 11.6 L Hct 36.4 L MCV 82.7 MCH 26.4 MCHC 31.9 L RDW 16.4 H Plt Count 133 L MPV 9.9 Puncture Site Not Reportable O2 Delivery Device Not Reportable O2 Liters/Min Not Reportable Sodium 136 L Potassium 3.8 Chloride 99 Carbon Dioxide 30 Anion Gap 7 BUN 36 H Creatinine 1.50 H Estim Creat Clear Calc 33 Estimated GFR 34 L Glucose 116 H Calcium 9.0 Magnesium 1.8
--- NOTE | 2025-05-22 15:09 | PC.NURSE ---
This patient, Tania Walker, was transferred to [[id number] ] on 05/22/25 at 1509. Personal belongings sent with patient. Report given to [ FREDY Mojica @ [id number]]. Appropriate documentation sent with patient.
--- NOTE | 2025-05-22 15:10 | PC.NURSE ---
On 05/22/25, the student, [Olvin Conte ], provided care and completed [facility] documentation on this patient. I have reviewed the student's documentation and agree with the findings.
[2025-05-23] VITALS (11 sets, daily range): BP systolic 107–119; BP diastolic 68–74; PULSE 68–99; RESP 18–20; TEMP 36.5–36.6; O2SAT 96–99
[2025-05-23 06:02] LABS: Hematocrit 39.1 % (37.0-47.0); Hemoglobin 12.3 g/dL (12.0-15.0); Mean Corpuscular HGB Conc 31.5 g/dl (32-36); Mean Corpuscular Hemoglobin 26.1 pg (26-34); Mean Corpuscular Volume 82.8 fl (80-100); Platelet Count Result 148 k/mm3 (150-375); Red Blood Count 4.72 M/mm3 (4.2-5.4); White Blood Count 7.7 K/mm3 (4.5-10.0)
[2025-05-23 06:28] LABS: Anion Gap 9 mmol/L (4-12); Blood Urea Nitrogen 40 mg/dL (7-17); Calcium 9.1 mg/dL (8.4-10.2); Carbon Dioxide 30 mmol/L (22-30); Chloride 96 mmol/L (98-107); Estimated CRCL calculation 29 ml/min; Estimated Glomerular Filt Rate 29; Glucose 98 mg/dL (65-110); Magnesium 1.6 mg/dL (1.6-2.3); Potassium 4.1 mmol/L (3.4-5.0); Sodium 135 mmol/L (137-145)
[2025-05-23] MEDS: PREGABALIN (*CRX) 75 MG CAPSULE 150 MG PO ×2 (08:41→20:06)
[2025-05-23] MEDS: AMIODARONE HCL 200 MG TABLET PO ×2 (08:41→16:46)
[2025-05-23] MEDS: METOPROLOL SUCCINATE EXT REL 50 MG TABCR PO (08:41)
[2025-05-23] MEDS: ATORVASTATIN 20 MG TABLET BY MOUTH (08:41)
[2025-05-23] MEDS: HYDROCORTISONE 1% 30 GM CREAM 1 APPLIC TOPICAL ×2 (08:41→20:09)
[2025-05-23] MEDS: PANTOPRAZOLE 40 MG TABLET PO (08:41)
[2025-05-23] MEDS: APIXABAN 5 MG TABLET PO ×2 (08:41→20:06)
[2025-05-23] MEDS: FUROSEMIDE 40 MG TABLET PO ×2 (08:41→16:46)
[2025-05-23] MEDS: DOCUSATE SODIUM 100 MG CAPSULE PO ×2 (08:41→20:06)
--- NOTE | 2025-05-23 17:20 | PM.IMPN ---
Progress Note: A&P Assessment and Plan (1) New onset a-fib: Code(s): I48.91 - Unspecified atrial fibrillation Status: Acute Assessment and Plan: Patient presents with SOB. EKG showing AFib with RVR with HR 134. Cardiology consulted from ED. Initially started on Cardizem drip but was discontinued due to hypotension. [id number] score 3 (Age, gender, CHF). Heparin drip started. Cardiology recommended CYRUS/cardioversion that was performed 05/17 that successfully converted her to sinus rhythm. On beta-celi and started an amiodarone drip. She was switched to oral amiodarone. Heparin changed to Eliquis. Maintaining sinus mechanism. Continue Eliquis, Toprol XL and Amiodarone (2) Pneumonia: Code(s): J18.9 - Pneumonia, unspecified organism Status: Acute Assessment and Plan: CXR showing bilateral lower lobe infiltrates and pleural effusion. WBC was essentially normal since admission. BCx negative. Urine legionella Ag negative. COVID, RSV and influenza PCR nasal screen negative. Pneumonia treated with ceftriaxone and doxycycline. Switched to oral antibiotics and she has completed a course (3) Acute respiratory failure: Code(s): J96.00 - Acute respiratory failure, unspecified whether with hypoxia or hypercapnia Status: Acute Assessment and Plan: Patient with hypoxic resp failure. ABG 7.30/ on FiO2 40%. She was started on Bipap. Imaging as above. Venous duplex negative for DVT Able to wean off O2. (4) Cardiomyopathy: Code(s): I42.9 - Cardiomyopathy, unspecified Status: Acute Assessment and Plan: Newly diagnosed severe global LV systolic dysfunction ejection fraction 25-30% with diastolic dysfunction, [id number] TR, moderate to severe MR, moderate to severe left atrial enlargement. Ischemic evaluation when clinically stable. Toprol XL on board. Further GMDT as renal function tolerates LifeVest at discharge (5) Acute kidney injury: Code(s): N17.9 - Acute kidney failure, unspecified Status: Acute Assessment and Plan: PETER with creatinine of 2.3. Baseline creatinine 1.4. Renal ultrasound negative for hydronephrosis. Likely cardiorenal syndrome Nephrology wsa consulted. Kidney function up slightly today to 1.7 Diuresis as ordered by Nephrology but will hold Lasix. (6) Essential hypertension: Code(s): I10 - Essential (primary) hypertension Status: Acute Assessment and Plan: Patient's blood pressure was reviewed on 05/23 Blood pressure remains well controlled. Will continue to monitor (7) Hyperlipidemia: Qualifiers: Hyperlipidemia type: mixed hyperlipidemia Qualified Code(s): E78.2 - Mixed hyperlipidemia Code(s): E78.5 - Hyperlipidemia, unspecified Status: Acute Assessment and Plan: Stable. Continue Lipitor (8) Hypomagnesemia: Code(s): E83.42 - Hypomagnesemia Status: Acute Assessment and Plan: Mag 1.6. Will replace. Follow Plan Rash - Possibly related to irritation from the life vest. Better with topical steroids. Follow. Back pain - acute flare of a chronic problem. Symptomatic care with heating pad DVT prophylaxis - apixaban Code status full code Disposition PT OT suggested SNF placement. Care coordination on board for placement. DC when SNF arranged Subjective Date/time seen: 05/23/25 17:20 Interval history: 79yo female with CKD, HTN and GERD who was not feeling well for about one week who developed worsening shortness of breath prior to admisison. Feels better. No change in her back pain. No CP or SOB. Skin feels itchy. Exam Narrative: AF 97.7 107/68 91 18 99% ra Gen - NARD Chest - CTA bilaterally. CV - RRR S1/S2. Telemetry showing episode of 4b run NSVT Abd - soft, NT/ND, +BS Ext - no pedal edema. right pointer finger dressing showing blood stained but intact dressing Neuro - nonfocal. Psych - normal mood Skin - splotchy blanchable patchy rash with improvement. Objective Data Vital Signs Vital Signs: Vital Signs - 24 hr 05/22/25 17:25 05/22/25 20:00 05/22/25 20:22 Temperature Pulse Rate 91 77 86 Respiratory Rate Blood Pressure Pulse Oximetry Oxygen Delivery 05/22/25 22:00 05/23/25 00:00 05/23/25 04:00 Temperature 98.2 F Pulse Rate 86 80 68 Respiratory Rate 16 Blood Pressure 115/56 L Pulse Oximetry 93 Oxygen Delivery 05/23/25 06:00 05/23/25 08:00 05/23/25 08:00 Temperature 97.7 F Pulse Rate 72 80 Respiratory Rate 18 Blood Pressure 107/68 Pulse Oximetry 96 Oxygen Delivery Room Air 10/23/25 08:41 05/23/25 08:41 05/23/25 12:00 Temperature Pulse Rate 88 88 85 Respiratory Rate Blood Pressure Pulse Oximetry Oxygen Delivery 05/23/25 14:00 05/23/25 16:46 Temperature 97.7 F Pulse Rate 99 91 Respiratory Rate 18 Blood Pressure 107/68 Pulse Oximetry 99 Oxygen Delivery Intake/Output Intake/Output: Intake & Output 05/20/25 05/21/25 05/22/25 05/23/25 23:59 23:59 23:59 23:59 Intake Total 1440 1910 1070 270 Output Total 1950 2100 Balance -510 -190 1070 270 Meds/Results Medications: Active Medications Generic Name Dose Route Start Last Admin Trade Name Freq PRN Reason Stop Dose Admin Acetaminophen 650 mg 05/17/25 21:12 05/22/25 23:04 Acetaminophen 325 Mg Tablet PO 650 mg Q6H PRN Administration Mild Pain (1-3) or Fever Amiodarone HCl 200 mg 05/19/25 17:00 05/23/25 16:46 Amiodarone Hcl 200 Mg Tablet PO 200 mg BID TAIWO Administration Apixaban 5 mg 05/17/25 21:00 05/23/25 08:41 Apixaban 5 Mg Tablet PO 5 mg Q12HR TAIWO Administration Atorvastatin Calcium 20 mg 05/16/25 09:00 05/23/25 08:41 Atorvastatin 20 Mg Tablet BY MOUTH 20 mg DAILY TAIWO Administration Docusate Sodium 100 mg 05/21/25 14:25 05/23/25 08:41 Docusate Sodium 100 Mg Capsule PO 100 mg Q12HR TAIWO Administration Furosemide 40 mg 05/19/25 09:30 05/23/25 16:46 Furosemide 40 Mg Tablet PO 40 mg BID TAIWO Administration Hydrocortisone 1 applic 05/21/25 21:00 05/23/25 08:41 Hydrocortisone 1% 30 Gm Cream TOPICAL 1 applic Q12HR TAIWO Administration Metoprolol Succinate 50 mg 05/23/25 09:00 05/23/25 08:41 Metoprolol Succinate Ext Rel 50 Mg Tabcr PO 50 mg QAM TAIWO Administration Pantoprazole Sodium 40 mg 05/17/25 09:00 05/23/25 08:41 Pantoprazole 40 Mg Tablet PO 40 mg QAM TAIWO Administration Pregabalin 150 mg 05/22/25 21:00 05/23/25 08:41 Pregabalin (*Crx) 75 Mg Capsule PO 150 mg Q12HR TAIWO Administration Radiology Results: ITS Impressions Renal Ultrasound 05/16/25 11:23 IMPRESSION: 1. Increasing mild right renal atrophy. No hydronephrosis in either kidney. Venous Doppler Study 05/16/25 11:29 IMPRESSION: 1. No deep venous thrombosis in either lower limb. Chest X-Ray 05/19/25 14:18 Impression: CHF. Labs Labs: Laboratory Results - last 24 hr 05/23/25 05:46 WBC 7.7 RBC 4.72 Hgb 12.3 Hct 39.1 MCV 82.8 MCH 26.1 MCHC 31.5 L RDW 16.0 H Plt Count 148 L MPV 10.1 Sodium 135 L Potassium 4.1 Chloride 96 L Carbon Dioxide 30 Anion Gap 9 BUN 40 H Creatinine 1.70 H Estim Creat Clear Calc 29 Estimated GFR 29 L Glucose 98 Calcium 9.1 Magnesium 1.6
[2025-05-23] MEDS: MAGNESIUM SULF 1 GM/D5W 100 ML 1 GM/100 ML BAG IVPB (17:52)
[2025-05-24] VITALS (8 sets, daily range): BP systolic 102–124; BP diastolic 54–65; PULSE 76–99; RESP 18–20; TEMP 36.2–36.8; O2SAT 96–98
[2025-05-24 07:08] LABS: Albumin Level 3.6 g/dL (3.5-5.1); Anion Gap 7 mmol/L (4-12); Blood Urea Nitrogen 44 mg/dL (7-17); Calcium 9.0 mg/dL (8.4-10.2); Carbon Dioxide 32 mmol/L (22-30); Chloride 97 mmol/L (98-107); Estimated CRCL calculation 28 ml/min; Estimated Glomerular Filt Rate 28; Glucose 95 mg/dL (65-110); Magnesium 1.9 mg/dL (1.6-2.3); Potassium 4.0 mmol/L (3.4-5.0); Sodium 136 mmol/L (137-145)
[2025-05-24] MEDS: METOPROLOL SUCCINATE EXT REL 50 MG TABCR PO (09:06)
[2025-05-24] MEDS: AMIODARONE HCL 200 MG TABLET PO (09:07)
[2025-05-24] MEDS: APIXABAN 5 MG TABLET PO (09:07)
[2025-05-24] MEDS: PREGABALIN (*CRX) 75 MG CAPSULE 150 MG PO (09:07)
[2025-05-24] MEDS: DOCUSATE SODIUM 100 MG CAPSULE PO (09:08)
[2025-05-24] MEDS: PANTOPRAZOLE 40 MG TABLET PO (09:08)
[2025-05-24] MEDS: HYDROCORTISONE 1% 30 GM CREAM 1 APPLIC TOPICAL (09:09)
[2025-05-24] MEDS: ATORVASTATIN 20 MG TABLET BY MOUTH (09:09)
[2025-05-24] MEDS: ACETAMINOPHEN 325 MG TABLET 650 MG PO (11:34)
--- NOTE | 2025-05-24 12:59 | P.DS_ITS ---
DS: Admitting Diagnosis Discharge Date 05/24/25 Admitting Diagnosis Shortness of breath DS: Discharge Diagnosis Discharge Diagnosis (1) New onset a-fib: Code(s): I48.91 - Unspecified atrial fibrillation Status: Acute (2) Pneumonia: Code(s): J18.9 - Pneumonia, unspecified organism Status: Acute (3) Acute respiratory failure: Code(s): J96.00 - Acute respiratory failure, unspecified whether with hypoxia or hy percapnia Status: Acute (4) Cardiomyopathy: Code(s): I42.9 - Cardiomyopathy, unspecified Status: Acute (5) Acute kidney injury: Code(s): N17.9 - Acute kidney failure, unspecified Status: Acute (6) Essential hypertension: Code(s): I10 - Essential (primary) hypertension Status: Acute (7) Hyperlipidemia: Qualifiers: Hyperlipidemia type: mixed hyperlipidemia Qualified Code(s): E78.2 - Mixed hyperlipidemia Code(s): E78.5 - Hyperlipidemia, unspecified Status: Acute (8) Hypomagnesemia: Code(s): E83.42 - Hypomagnesemia Status: Acute DS: Summary Hospital Course Reason for hospitalization: 79yo female with CKD, HTN and GERD who was not feeling well for about one week who developed worsening shortness of breath prior to admission. Please see H&P for details. Hospital Course: Patient presented with SOB. EKG showing AFib with RVR with HR 134. Cardiology consulted from ED. Initially started on Cardizem drip but was discontinued due to hypotension. [id number] score 3 (Age, gender, CHF). Heparin drip started. Cardiology recommended CYRUS/cardioversion that was performed 05/17 that successfully converted her to sinus rhythm. Was on a beta-mervin and started an amiodarone drip. She was switched to oral amiodarone. Heparin changed to Eliquis. She was maintaining sinus mechanism. CXR showing bilateral lower lobe infiltrates and pleural effusion. WBC was essentially normal since admission. BCx negative. Urine legionella Ag negative. COVID, RSV and influenza PCR nasal screen negative. Pneumonia treated with ceftriaxone and doxycycline. She was switched to oral antibiotics and she has completed a course. Patient with hypoxic resp failure. ABG 7.30 on FiO2 40%. She was started on Bipap. Venous duplex negative for DVT. She had clinical improvement and was able to be weaned to room air. Newly diagnosed severe global LV systolic dysfunction ejection fraction 25-30% with diastolic dysfunction, [id number] TR, moderate to severe MR, moderate to severe left atrial enlargement. Ischemic evaluation when clinically stable. Toprol XL on board. Further GMDT as renal function tolerates. LifeVest ordered and patient was fitted. She developed a rash around where the vest fit her and now she is declining to continue LifeVest use. Long discussion with patient and son (with patient's permission) about the risks of not having the LifeVest. She voices understanding but continues to refuse this. Patient with PETER with creatinine of 2.3. Baseline creatinine 1.4. Renal ultrasound negative for hydronephrosis. Likely cardiorenal syndrome. Nephrology was consulted. Kidney function improved to baseline but now up slightly to 1.7. Diuretic held and Cr stabilized. For the rash, this was possibly related to irritation from the life vest. Better with topical steroids. She also was having left lower back pain which was an acute flare of a chronic problem. Symptomatic care with heating pad. She overall did well and was able to be discharged on 05/24/25. Discharge instructions including side effects of medications were discussed. All questions were answered. Status at Discharge Cognitive/behavioral status at discharge: Stable Time Spent with Patient Time attestation: Total time spent providing and/or coordinating discharge services: 34 minutes Time spent: Greater than 30 minutes Exam Narrative: AF 98.2 124/65 99 20 96% ra Gen - NARD Chest - CTA bilaterally. CV - RRR S1/S2. Telemetry showing no significant dysrhythmias Abd - soft, NT/ND, +BS Ext - no pedal edema. Psych - normal mood Skin -splotchy, faded rash about the torso DS: Data Data Completed and Pending Labs on day of discharge: Labs from last 24 hours 05/24/25 06:05 Sodium 136 L Potassium 4.0 Chloride 97 L Carbon Dioxide 32 H Anion Gap 7 BUN 44 H Creatinine 1.76 H Estim Creat Clear Calc 28 Estimated GFR 28 L Glucose 95 Calcium 9.0 Phosphorus 3.4 Magnesium 1.9 Albumin 3.6 Discharge Plan Discharge Attending physician on discharge: Romel Camara Consulting providers: Elvira Chapman Willis Discharging Clinician: Romel Camara Anticipated Discharge Date/Time: 05/24/25 13:13 Patient Disposition: SNF Activity: as tolerated Diet: heart healthy Discharge Instructions: Check blood pressure 1 to 2 times a day. Record for the doctor's review. Take precautions to avoid falls. Rise slowly from a lying or sitting position. Pause before standing or walking. Check daily morning weights after voiding. Call the doctor if the patient gains more than 3 lb in 2 days or 5 lb in 1 week. Contact the doctor if the patient has any lightheadedness with standing or other worrisome symptoms. Avoid NSAIDs (ibuprofen, naproxen, Aleve). Tylenol is safe to take. Follow-up with the provider at the facility. Follow-up with Cardiology in 2-4 weeks. Please call for an appointment. Follow-up with Nephrology as needed. Thank you for using [facility] for your health care needs. Patient Instructions: Heart Failure (GEN), Blood Thinners (GEN) Patient Language: Czech Stand Alone Forms: General Discharge Information Follow-up/Referrals: Phill Amaya MD [Physician, Interventional Cardiology] - Call for Appointment Esau Longo MD [Primary Care Provider, Family Practice] - Call for Appointment Elvira Chapman MD [Physician, Nephrology] - Other Referral Note: Follow-up as needed Discharge Medications: New amiodarone [Pacerone] 200 mg Tablet 200 mg PO BID Qty: 60 1RF hydrocortisone 1 % Cream 1 applic topical Q12HR Qty: 28.4 0RF furosemide [Lasix] 40 mg tablet 40 mg PO DAILY Qty: 30 1RF Eliquis 5 mg Tablet 5 mg PO Q12HR Qty: 60 1RF metoprolol succinate 50 mg Tablet Extended Release 24 Hr 50 mg PO QAM Qty: 30 1RF Continued multivitamin Tablet 1 tablet PO DAILY pregabalin 75 mg capsule 150 mg PO .Q12HR diclofenac epolamine 1.3 % patch 12 hour 1 patch topical Q12H PRN (Reason: pain, mild) Rx Instructions: place on back or shoulder omeprazole 20 mg capsule,delayed release(DR/EC) See Rx Instructions .ROUTE .COMPLEX Qty: 90 1RF Dose Instruction: TAKE 1 CAPSULE BY MOUTH EVERY DAY Rx Instructions: TAKE 1 CAPSULE BY MOUTH EVERY DAY atorvastatin 20 mg tablet See Rx Instructions .ROUTE .COMPLEX Qty: 90 1RF Dose Instruction: TAKE 1 TABLET BY MOUTH EVERY DAY Rx Instructions: TAKE 1 TABLET BY MOUTH EVERY DAY Discontinued loratadine [Allergy Relief (loratadine)] 10 mg tablet 10 mg PO DAILY lidocaine 5 % ointment 1 applic topical TID PRN (Reason: pain) Qty: 50 2RF Patient Comments: shoulders hands hips meloxicam 15 mg tablet 15 mg PO DAILY Qty: 90 3RF tramadol 50 mg tablet 50 mg PO Q6H PRN (Reason: pain) Qty: 90 1RF meloxicam 7.5 mg tablet 7.5 mg PO DAILY Qty: 30 5RF atenolol 100 mg tablet 100 mg PO DAILY Qty: 90 1RF amlodipine 5 mg tablet See Rx Instructions .ROUTE .COMPLEX Qty: 90 1RF Dose Instruction: TAKE 1 TABLET BY MOUTH EVERY DAY Rx Instructions: TAKE 1 TABLET BY MOUTH EVERY DAY Date of admission: 05/16/25 12:46 Primary Care Provider: Esau Longo Admitting Provider: Claude Dexter Attending physician on admission: Claude Dexter Condition: Stable Hospitalist MIPS Heart Failure (Exclusion) Patient has history of Heart Transplant or Left Ventricular Assistive Device?: No IF YES, STOP HERE Heart Failure (Qualifier) Patient has current or prior documentation of LVEF less than or equal to 40%, or mod/servere depressed LVSF?: Yes IF NO, STOP HERE If Yes, Heart Failure (Qualifier) Patient was prescribed or already taking an Angiotensin-Converting Enzyme (MARCEL) Inhibitor, or Antiotensin Receptor Mervin (ARB): No Patient was prescribed or already taking bisoprolol, carvedilol, or sustained release metoprolol succinate: Yes If Medications not prescribed/taking Reason patient not prescribed/taking MARCEL or ARB: Medical reasons: allergy, intolerance, contraindication or other
== END 2025-05-24 15:08 | DRG 291 ==
LOC: ANHED 20:52 → ANHIMU 21:42 → ANH3MEDSUR 05-24 13:17 → ANHIMU 05-27 09:22
PROVIDERS: Internal Medicine; Internal Medicine Cardiovascular Disease; Internal Medicine Nephrology; Nurse Practitioner; Student in an Organized Health Care Education/Training Program; Admitting Provider Family Medicine; Emergency Provider Emergency Medicine; PCP Family Medicine; Visit Provider Internal Medicine
PROC: 5A2204Z Restoration of Cardiac Rhythm, Single (ICD-10-PCS; principal; 2025-05-17 13:00)
PROC: B24BZZ4 Ultrasonography of Heart with Aorta, Transesophageal (ICD-10-PCS; CPT 93312; 2025-05-17 13:00)
DX: I13.0 Hypertensive heart and chronic kidney disease with heart failure and stage 1 through stage 4 chronic kidney disease, or unspecified chronic kidney disease (principal); I50.41 Acute combined systolic (congestive) and diastolic (congestive) heart failure; J18.9 Pneumonia, unspecified organism; J96.01 Acute respiratory failure with hypoxia; N17.9 Acute kidney failure, unspecified; E87.20 Acidosis, unspecified; I48.91 Unspecified atrial fibrillation; I95.2 Hypotension due to drugs; I42.9 Cardiomyopathy, unspecified; N18.32 Chronic kidney disease, stage 3b; E83.42 Hypomagnesemia; E78.5 Hyperlipidemia, unspecified; D64.9 Anemia, unspecified; K21.9 Gastro-esophageal reflux disease without esophagitis; K58.9 Irritable bowel syndrome, unspecified; R21 Rash and other nonspecific skin eruption; M54.9 Dorsalgia, unspecified; M19.90 Unspecified osteoarthritis, unspecified site; G62.9 Polyneuropathy, unspecified; Z20.822 Contact with and (suspected) exposure to COVID-19; Z87.891 Personal history of nicotine dependence
CPT/HCPCS: 36415; 36600; 71045; 76770; 80048; 80053; 80069; 81001; 82375; 82550; 82570; 82805; 82948; 83050; 83605; 83735; 83880; 84156; 84300; 84443; 84484; 84540; 85018; 85025; 85027; 85610; 85730; 85999; 87040; 87086; 87449; 87637; 92960; 93005; 93306; 93312; 93320; 93325; 93970; 94002; 94003; 96361; 96365; 96366; 96367; 97110; 97116; 97161; 97166; 97530; 97535; 99285; A9270; G0378; J0283; J0456; J0696; J1163; J1644; J1938; J1939; J2250; J2704; J3010; J3475; J7030; J7040; J7050